=== PATIENT | female | born 1935 | race Caucasian/White ===

== ENCOUNTER 2017-10-16 17:16 | Emergency (ER) | payer OTHER ==
[2017-10-16 17:29] VITALS: BMI 28.3
[2017-10-16 17:33] LABS: BASOPHILS # (AUTO) 0.2 X10^3/uL (0.0-0.1); BASOPHILS % (AUTO) 2.6 % (0.2-1.0); EOSINOPHILS # (AUTO) 0.4 x10^3/uL (0.0-0.2); EOSINOPHILS % (AUTO) 4.4 % (0.9-2.9); HEMATOCRIT 36.1 % (36.0-47.0); HEMOGLOBIN 12.2 g/dL (12.0-16.0); LYMPHOCYTES % (AUTO) 22.7 % (21.0-51.0); MEAN CORPUSCULAR HEMOGLOBIN 30.6 pg (27.0-34.0); MEAN CORPUSCULAR HGB CONC 33.9 g/dL (33.0-35.0); MEAN CORPUSCULAR VOLUME 90.3 fL (80.0-100.0); MEAN PLATELET VOLUME 8.7 fL (7.4-11.0); MONOCYTES # (AUTO) 0.9 x10^3/uL (0.3-0.8); NEUTROPHILS # (AUTO) 5.4 x10^3/uL (2.2-4.8); NEUTROPHILS % (AUTO) 60.3 % (42.0-75.0); PLATELET COUNT 256 X10^3/uL (150.0-450.0); RED CELL DISTRIBUTION WIDTH 14.8 % (11.6-16.5); WHITE BLOOD COUNT 8.9 X10^3/uL (3.6-10.0)
[2017-10-16 17:47] LABS: ALANINE AMINOTRANSFERASE 19 Units/L (12-78); ALBUMIN 3.4 g/dL (3.4-5.0); ALKALINE PHOSPHATASE 75 Units/L (46-116); ASPARTATE AMINO TRANSFERASE 19 Units/L (15-37); BLOOD UREA NITROGEN 13 mg/dL (7-18); CALCIUM 8.7 mg/dL (8.5-10.1); CARBON DIOXIDE 28.4 mmol/L (21-32); CHLORIDE 103 mmol/L (98-107); COR NA(FOR HYPERGLY) 140 mmol/L (136-145); CREATININE 1.21 mg/dL (0.55-1.02); SODIUM 139 mmol/L (136-145); TOTAL PROTEIN 7.3 g/dL (6.4-8.2); eGFR BLACK RACES 55 (>60); eGFR NON BLACK RACES 45 (>60)
[2017-10-16 17:51] LABS: BLOOD ALCOHOL < 3 mg/dL (0-19.9)
[2017-10-16 18:05] LABS: SALICYLATE < 2.8 mg/dL (2.8-20)
[2017-10-16 18:34] LABS: BILIRUBIN,URINE NEGATIVE (NEGATIVE); BLOOD/HEMOGLOBIN,URINE 1+ (NEGATIVE); GLUCOSE, URINE NEGATIVE (NEGATIVE); KETONES,URINE NEGATIVE (NEGATIVE); LEUKOCYTE ESTERASE ,URINE 2+ (NEGATIVE); NITRITES,URINE NEGATIVE (NEGATIVE); PROTEIN,URINE NEGATIVE (NEGATIVE); UROBILINOGEN,URINE NORMAL (NORMAL)
[2017-10-16 18:50] LABS: APPEARANCE,URINE CLEAR (CLEAR); COLOR,URINE YELLOW (YELLOW); RBC,URINE 0-1 /HPF (NEGATIVE)
[2017-10-16 18:51] LABS: BACTERIA,URINE NEGATIVE /HPF (NEGATIVE); SQUAMOUS EPITHELIAL CELL,UR FEW /HPF (NEGATIVE)
--- NOTE | 2017-10-16 19:09 | DR.PSYCH ---
HPI - Time Seen Time seen: 17:25 - PCP Primary Care Physician: DR. ROMO - HPI Comment HPI Comment: PATIENT SAID SHE TOLD THE STAFF AT THE [facility] SHE WILL [facility] THAN BE AT THE [facility] AFTER HER RELATIVES SAID THEY DID NOT WANT TO TAKE HER HOME. SHE DENIES ANY ACUTE PAIN. - Complaint Chief Complaint Doctors Comments: HERE FROM [place] WITH BELOW COMPLAINT. Chief Complaint:: PT TO ER WITH C/O FROM [facility] STAFF THAT PT THREATENED TO KILL HER SELF AND THAT SHE COULD GET A GUN AND SHE COULD GET SOME TWEEZERS AND POKE HER SELF AND THAT LASHELL WRAY WAS CALLED AND FOR PT TO BE EVALUATED , Self Treatment fo Chief Complaint: PT DOES NOT KNOW WHY SHE IS HERE .. - Reviewed Nurses Notes Review: Yes - Source History Provided: Patient, Longterm - Mode of Arrival Mode of Arrival: Wheelchair - Timing Onset of Chief Complaint: 10/16/17 Came on: Suddenly - Duration Duration: Constant Duration: Hours - Context Ideation: Suicidal (POSSIBLE SUICIDE THREAT.) Plan: None Stressors: Family, Relationships History of: None - Quality Quality: None Hallucinations: None - Severity Severity: Able to care for self - Associated signs and symptoms Intoxification: None PMH - PMH Past Medical History: Yes Past Medical History: Arthritis, CHF, Dyslipidemia, GERD, Hypertension Past Surgical History: Yes Surgical History: Appendectomy, Hysterectomy, Tonsillectomy, Other - Family History History of Family Medical Conditions: Yes Family Medical History: Diabetes Mellitus, Heart Failure, Hypertension - Social History Does patient currently use any type of tobacco product: No Have you used tobacco products in the last 12 months: No Type of Tobacco Use: None Does any household member use tobacco: No Alcohol Use: None Do you use any recreational Drugs:: No Lives Where: Longterm - infectious screening In the last 2 months have you had wt loss of >10#?: NO Have you had fever, night sweats or hemotysis?: No Have you traveled outside the country in the last 6 months?: No Isolation: Standard ROS - Review of Systems Constitutional: No Symptoms Reported Eyes: No Symptoms Reported ENTM: No Symptoms Reported Respiratoy: No Symptoms Reported Cardiovascular: No Symptoms Reported Gastrointestinal/Abdominal: No Symptoms Reported Genitourinary: No Symptoms Reported Neurological: No Symptoms Reported Musculoskeletal: No Symptoms Reported Integumentary: No Symptoms Reported Hematologic/Lymphatic: No Symptoms Reported Endocrine: No Symptoms Reported Psychiatric: Other (POSSIBLE SUICIDE THREAT.) All Other Systems: Reviewed and Negative PE - Vitals Vitals: Temperature 98.7 F Pulse Rate [Left] 75 Pulse Rate 89 Respiratory Rate 16 Blood Pressure [Left Arm] 139/67 Blood Pressure [Right Arm] 149/91 Blood Pressure 113/63 O2 Sat by Pulse Oximetry 97 - General Limitations: No Limitations General Appearance: Alert - Head Head Exam: Normal Inspection Head Exam Physical: Other (NONE) - Eyes Eye exam: Normal Appearance Pupils: Regular, Round: Bilateral, Reactive: Bilateral Sclera/Conjunctival: Normal Inspection: Bilateral - ENT ENT Exam: Normal Exam - Neck Neck Exam: Normal Inspection - Chest Chest Inspection: Symmetric Chest Wall Rise - Respiratory Respiratory Exam: Normal Lung Sounds Bilat Respiratory Exam: Bilateral Clear to Auscultation - Cardiovascular Cardiovascular Exam: Irregular Rhythm - Abdominal Exam Abdominal Exam: Normal Bowel Sounds, Soft. negative: Tenderness - Extremities Extremities Exam: Normal Inspection - Back Back Exam: Normal Inspection - Neurologic Neurological Exam: Alert, Oriented X3 Speech: Fluid Speech Cranial Nerve Exam: EOM Function (II, III, IV, ): Normal, Facial Sensation (V) : Normal, Facial Palsy (VII): Normal, Gag reflex (XI): Normal, Spinal Accessory Function (XI): Normal, Tongue Deviation: Normal Cerebellar Function: Normal Gait Motor Strength - LUE: 5/5 Motor Strength - RUE: 5/5 Motor Strength - LLE: 5/5 Motor Strength - RLE: 5/5 Upper Motor Neuron Exam: Babinski Sign: Normal DTR: achilles tendon (L): 4+, achilles tendon (R): 4+, brachioradialis (L): 4+, brachioradialis (R): 4+, Patellar (L): 4+, patellar (R): 4+ - Psychiatric Psychiatric Exam: Normal Affect, Normal Mood - Skin Skin Exam: Normal Color MDD - Differential Diagnosis Differential diagnosis: Suicidal (PROBABLE SUICIDE THREAT.) Course - Treatment Treatment: SEE ORDERS. PATIENT IS MEDICALLY CLEAR. - Education/Counseling Education/Counseling: Patient Educated On: Diagnosis ROR - Labs Reviewed Laboratory Results Reviewed?: Yes Result Diagrams: 10/16/17 17:25 10/16/17 17:25 Laboratory: WBC 8.9 X10^3/uL (3.6-10.0) 10/16/17 17:25 RBC 4.00 X10^6/uL (3.5-5.4) 10/16/17 17:25 Hgb 12.2 g/dL (12.0-16.0) 10/16/17 17:25 Hct 36.1 % (36.0-47.0) 10/16/17 17:25 MCV 90.3 fL (80.0-100.0) 10/16/17 17:25 MCH 30.6 pg (27.0-34.0) 10/16/17 17:25 MCHC 33.9 g/dL (33.0-35.0) 10/16/17 17:25 RDW 14.8 % (11.6-16.5) 10/16/17 17:25 Plt Count 256 X10^3/uL (150.0-450.0) 10/16/17 17:25 MPV 8.7 fL (7.4-11.0) 10/16/17 17:25 Neut % 60.3 % (42.0-75.0) 10/16/17 17:25 Lymph % 22.7 % (21.0-51.0) 10/16/17 17:25 [place] % 10.0 % (0.0-13.0) 10/16/17 17:25 Eos % 4.4 % (0.9-2.9) H 10/16/17 17:25 Baso % 2.6 % (0.2-1.0) H 10/16/17 17:25 Neut # 5.4 x10^3/uL (2.2-4.8) H 10/16/17 17:25 Lymph # 2.0 X10^3/uL (1.3-2.9) 10/16/17 17:25 [place] # 0.9 x10^3/uL (0.3-0.8) H 10/16/17 17:25 Eos # 0.4 x10^3/uL (0.0-0.2) H 10/16/17 17:25 Baso # 0.2 X10^3/uL (0.0-0.1) H 10/16/17 17:25 Absolute Nucleated RBC 0.1 /100WBC 10/16/17 17:25 Sodium 139 mmol/L (136-145) 10/16/17 17:25 Corrected Sodium 140 mmol/L (136-145) 10/16/17 17:25 Potassium 3.7 mmol/L (3.5-5.1) 10/16/17 17:25 Chloride 103 mmol/L (98-107) 10/16/17 17:25 Carbon Dioxide 28.4 mmol/L (21-32) 10/16/17 17:25 BUN 13 mg/dL (7-18) 10/16/17 17:25 Creatinine 1.21 mg/dL (0.55-1.02) H 10/16/17 17:25 Est GFR (MDRD) Af Amer 55 (>60) L 10/16/17 17:25 Est GFR (MDRD) Non-Af 45 (>60) L 10/16/17 17:25 Glucose 148 mg/dL (65-99) H 10/16/17 17:25 Calcium 8.7 mg/dL (8.5-10.1) 10/16/17 17:25 Corrected Calcium TNP 10/16/17 17:25 Total Bilirubin 0.50 mg/dL (0.2-1.0) 10/16/17 17:25 AST 19 Units/L (15-37) 10/16/17 17:25 ALT 19 Units/L (12-78) 10/16/17 17:25 Alkaline Phosphatase 75 Units/L (46-116) 10/16/17 17:25 Total Protein 7.3 g/dL (6.4-8.2) 10/16/17 17:25 Albumin 3.4 g/dL (3.4-5.0) 10/16/17 17:25 Globulin 3.9 g/dL (2.5-4.5) 10/16/17 17:25 Albumin/Globulin Ratio 0.9 Ratio (1.1-2.1) L 10/16/17 17:25 Specimen Type Clean catch urine 10/16/17 18:22 Urine Color Yellow (YELLOW) 10/16/17 18:22 Urine Appearance Clear (CLEAR) 10/16/17 18:22 Urine pH 5.0 (5.0 - 8.0) 10/16/17 18:22 Ur Specific [place] 1.010 (1.000-1.030) 10/16/17 18:22 Urine Protein Negative (NEGATIVE) 10/16/17 18:22 Urine Glucose (UA) Negative (NEGATIVE) 10/16/17 18:22 Urine Ketones Negative (NEGATIVE) 10/16/17 18:22 Urine Occult Blood 1+ (NEGATIVE) 10/16/17 18:22 Urine Nitrite Negative (NEGATIVE) 10/16/17 18:22 Urine Bilirubin Negative (NEGATIVE) 10/16/17 18:22 Urine Urobilinogen Normal (NORMAL) 10/16/17 18:22 Ur Leukocyte Esterase 2+ (NEGATIVE) 10/16/17 18:22 Urine RBC 0-1 /HPF (NEGATIVE) 10/16/17 18:22 Urine WBC 5-10 /HPF (NEGATIVE) 10/16/17 18:22 Ur Squamous Epith Cells Few /HPF (NEGATIVE) 10/16/17 18:22 Urine Bacteria Negative /HPF (NEGATIVE) 10/16/17 18:22 Ur Culture Indicated? Yes/culture set up 10/16/17 18:22 Salicylates < 2.8 mg/dL (2.8-20) L 10/16/17 17:25 Urine Opiates Screen Negative (NEG=<300) 10/16/17 18:22 Urine Methadone Screen Negative (NEG=<300) 10/16/17 18: Acetaminophen 0.0 ug/mL (10-30) L 10/16/17 17:25 Ur Barbiturates Screen Negative (NEG=<200) 10/16/17 18:22 Ur Phencyclidine Scrn Negative (NEG=<25) 10/16/17 18:22 Ur Amphetamines Screen Negative (NEG=<1000) 10/16/17 18:22 U Benzodiazepines Scrn Positive (NEG=<200) A 10/16/17 18:22 Urine Cocaine Screen Negative (NEG=<300) 10/16/17 18:22 U Marijuana (THC) Screen Negative (NEG=<50) 10/16/17 18:22 Ethyl Alcohol mg/dL < 3 mg/dL (0-19.9) 10/16/17 17:25 - Diagnosis Discharge Problem: Suspected suicide UTI (urinary tract infection) Qualifiers: Urinary tract infection type: site unspecified Hematuria presence: without hematuria Qualified Code(s): N39.0 - Urinary tract infection, site not specified - Discharge Plan Disposition: 65 XFER TO PSYCH HOSP/UNIT Condition: Stable Prescriptions: Ciprofloxacin HCl [CIPRO 500 MG TAB *] 500 mg PO Q12H #20 tab - Follow ups/Referrals Follow ups/Referrals: Bart Romo [Primary Care Provider] - 3 days - Instructions Instructions: Urinary Tract Infection, Adult
[2017-10-16] MEDS ORDERED: ZOCOR TAB 20 MG PO ONE (21:07)
[2017-10-16] MEDS ORDERED: ARICEPT TAB 5 MG PO ONE (21:09)
[2017-10-16 22:07] VITALS: BP 139/67
== END 2017-10-16 22:20 ==
LOC: ER 17:32
DX: N39.0 Urinary tract infection, site not specified (principal)
CPT/HCPCS: 36415; 80053; 80307; 80320; 81001; 85025; 87086; 93005; 93010; 99282; 99285; G0434; G6038; G6039; G6040

== ENCOUNTER 2017-11-12 17:31 | Emergency (ER) | payer OTHER ==
--- NOTE | 2017-11-12 18:06 | DR.GENAD ---
HPI - PCP Primary Care Physician: Jai - Complaint/Symptoms Chief Complaint Doctors Comments: Patient sent from nursing complaint of diarrhea stools. Denies fever vomiting or diarrhea. PMH - PMH Past Medical History: Arthritis, CHF, Dyslipidemia, GERD, Hypertension Past Surgical History: Yes Surgical History: Appendectomy, Hysterectomy, Tonsillectomy, Other - Family History Family Medical History: Diabetes Mellitus, Heart Failure, Hypertension - Social History Do you use any recreational Drugs:: No ROS - Review of Systems Eyes: No Symptoms Reported ENTM: No Symptoms Reported Respiratoy: No Symptoms Reported Cardiovascular: No Symptoms Reported Gastrointestinal/Abdominal: Diarrhea Genitourinary: No Symptoms Reported Neurological: No Symptoms Reported Musculoskeletal: No Symptoms Reported Integumentary: No Symptoms Reported Hematologic/Lymphatic: No Symptoms Reported Endocrine: No Symptoms Reported Psychiatric: No Symptoms Reported All Other Systems: Reviewed and Negative PE - Vital Signs Vitals: Temperature 98.7 F Pulse Rate 72 Respiratory Rate 20 Blood Pressure [Left Arm] 139/67 Blood Pressure [Right Arm] 149/91 Blood Pressure 121/59 O2 Sat by Pulse Oximetry 99 - General General Appearance: Alert, In No Apparent Distress - Head Head Exam: Normal Inspection, Atraumatic - Eyes Eye exam: Normal Appearance, PERRL, EOMI - ENT ENT Exam: Normal Exam External Ear Exam: Normal External Inspection TM/Canal Exam: Bilateral Normal Nose Exam: Normal Nose Exam Mouth Exam: Normal Inspection Throat Exam: Normal Inspection - Neck Neck Exam: Normal Inspection, Full ROM - Chest Chest Inspection: Normal Inspection - Respiratory Respiratory Exam: Normal Lung Sounds Bilat Respiratory Exam: Bilateral Clear to Auscultation - Cardiovascular Cardiovascular Exam: Regular Rate, Normal Rhythm - Abdominal Exam Abdominal Exam: Normal Inspection Abdominal Tenderness: negative: RUQ, RLQ, LUQ, LLQ, Epigastrium, Suprapubic, Diffuse, Mild, Moderate, Severe, Other - Extremities Extremities Exam: Normal Inspection, Full ROM - Back Back Exam: Normal Inspection, Full ROM - Neurologic Neurological Exam: Alert, Oriented X3, CN II-XII Intact - Psychiatric Psychiatric Exam: Normal Affect - Skin Skin Exam: Warm, Dry, Intact, Normal Color Course - Reevaluation 1st: Improved ROR - Labs Reviewed Result Diagrams: 11/12/17 18:48 Laboratory: Sodium 138 mmol/L (136-145) 11/12/17 18:48 Corrected Sodium TNP 11/12/17 18:48 Potassium 4.2 mmol/L (3.5-5.1) 11/12/17 18:48 Chloride 104 mmol/L (98-107) 11/12/17 18:48 Carbon Dioxide 25.5 mmol/L (21-32) 11/12/17 18:48 BUN 15 mg/dL (7-18) 11/12/17 18:48 Creatinine 0.98 mg/dL (0.55-1.02) 11/12/17 18:48 Est GFR (MDRD) Af Amer > 60 (>60) 11/12/17 18:48 Est GFR (MDRD) Non-Af 58 (>60) L 11/12/17 18:48 Glucose 109 mg/dL (65-99) H 11/12/17 18:48 Calcium 8.5 mg/dL (8.5-10.1) 11/12/17 18:48 - Diagnosis Discharge Problem: Diarrhea Qualifiers: Diarrhea type: unspecified type Qualified Code(s): R19.7 - Diarrhea, unspecified - Discharge Plan Condition: Stable - Follow ups/Referrals Follow ups/Referrals: Bart Romo [Primary Care Provider] - 3 days - Instructions
[2017-11-12 18:26] VITALS: BMI 19.3
[2017-11-12] MEDS ORDERED: NS 1000 ML 1,000 ML ONE (18:28)
[2017-11-12] MEDS ORDERED: NS 1000 ML 1,000 ML IV SCH (19:00)
[2017-11-12 19:03] LABS: BLOOD UREA NITROGEN 15 mg/dL (7-18); CALCIUM 8.5 mg/dL (8.5-10.1); CARBON DIOXIDE 25.5 mmol/L (21-32); CHLORIDE 104 mmol/L (98-107); CREATININE 0.98 mg/dL (0.55-1.02); SODIUM 138 mmol/L (136-145); eGFR BLACK RACES > 60 (>60); eGFR NON BLACK RACES 58 (>60)
[2017-11-12 19:48] VITALS: BP 111/53
== END 2017-11-12 19:50 | disposition home or self-care (01) ==
LOC: ER 18:06
DX: R19.7 Diarrhea, unspecified (principal); Z79.899 Other long term (current) drug therapy
CPT/HCPCS: 36415; 80048; 85025; 96365; 96367; 99282; 99283; A4222

== ENCOUNTER → 2017-11-12 | Outpatient (CLI) | payer OTHER ==
[2017-10-16 22:07] VITALS: BP 139/67
[2017-11-12 14:34] LABS: BASOPHILS # (AUTO) 0.1 X10^3/uL (0.0-0.1); BASOPHILS % (AUTO) 0.9 % (0.2-1.0); EOSINOPHILS # (AUTO) 0.3 x10^3/uL (0.0-0.2); EOSINOPHILS % (AUTO) 2.4 % (0.9-2.9); HEMATOCRIT 30.9 % (36.0-47.0); HEMOGLOBIN 10.7 g/dL (12.0-16.0); LYMPHOCYTES # (AUTO) 1.7 X10^3/uL (1.3-2.9); LYMPHOCYTES % (AUTO) 16.2 % (21.0-51.0); MEAN CORPUSCULAR HEMOGLOBIN 30.5 pg (27.0-34.0); MEAN CORPUSCULAR HGB CONC 34.6 g/dL (33.0-35.0); MEAN CORPUSCULAR VOLUME 88.1 fL (80.0-100.0); MEAN PLATELET VOLUME 9.1 fL (7.4-11.0); MONOCYTES # (AUTO) 1.4 x10^3/uL (0.3-0.8); NEUTROPHILS # (AUTO) 7.1 x10^3/uL (2.2-4.8); NEUTROPHILS % (AUTO) 67.5 % (42.0-75.0); PLATELET COUNT 315 X10^3/uL (150.0-450.0); RED BLOOD COUNT 3.51 X10^6/uL (3.5-5.4); RED CELL DISTRIBUTION WIDTH 13.6 % (11.6-16.5); WHITE BLOOD COUNT 10.5 X10^3/uL (3.6-10.0)
[2017-11-12 14:40] LABS: BLOOD UREA NITROGEN 14 mg/dL (7-18); CALCIUM 8.3 mg/dL (8.5-10.1); CARBON DIOXIDE 25.6 mmol/L (21-32); CHLORIDE 106 mmol/L (98-107); CREATININE 1.11 mg/dL (0.55-1.02); SODIUM 140 mmol/L (136-145); eGFR BLACK RACES > 60 (>60); eGFR NON BLACK RACES 50 (>60)
== END ==
LOC: LAB 13:35
PROVIDERS: ATTEND Internal Medicine
DX: Z79.899 Other long term (current) drug therapy (principal)
CPT/HCPCS: 36415; 80048; 85025

== ENCOUNTER 2017-12-20 13:05 | Inpatient (IN) | payer OTHER ==
[2017-12-20] MEDS ORDERED: ZOFRAN INJ 4 MG VIAL IVP PRN ×2 (13:32→13:49)
[2017-12-20 14:18] LABS: BASOPHILS # (AUTO) 0.1 X10^3/uL (0.0-0.1); BASOPHILS % (AUTO) 0.9 % (0.2-1.0); EOSINOPHILS # (AUTO) 0.1 x10^3/uL (0.0-0.2); EOSINOPHILS % (AUTO) 2.1 % (0.9-2.9); HEMATOCRIT 39.7 % (36.0-47.0); HEMOGLOBIN 13.8 g/dL (12.0-16.0); LYMPHOCYTES % (AUTO) 28.5 % (21.0-51.0); MEAN CORPUSCULAR HEMOGLOBIN 32.1 pg (27.0-34.0); MEAN CORPUSCULAR HGB CONC 34.7 g/dL (33.0-35.0); MEAN CORPUSCULAR VOLUME 92.6 fL (80.0-100.0); MEAN PLATELET VOLUME 8.6 fL (7.4-11.0); MONOCYTES # (AUTO) 0.5 x10^3/uL (0.3-0.8); MONOCYTES % (AUTO) 6.7 % (0.0-13.0); NEUTROPHILS # (AUTO) 4.3 x10^3/uL (2.2-4.8); NEUTROPHILS % (AUTO) 61.8 % (42.0-75.0); PLATELET COUNT 162 X10^3/uL (150.0-450.0); RED BLOOD COUNT 4.29 X10^6/uL (3.5-5.4); RED CELL DISTRIBUTION WIDTH 14.6 % (11.6-16.5); WHITE BLOOD COUNT 6.9 X10^3/uL (3.6-10.0)
[2017-12-20 14:22] VITALS: BMI 17.6
[2017-12-20 14:28] LABS: ALANINE AMINOTRANSFERASE 16 Units/L (12-78); ALBUMIN 3.9 g/dL (3.4-5.0); ALKALINE PHOSPHATASE 118 Units/L (46-116); ASPARTATE AMINO TRANSFERASE 15 Units/L (15-37); BLOOD UREA NITROGEN 12 mg/dL (7-18); CALCIUM 8.8 mg/dL (8.5-10.1); CARBON DIOXIDE 28.5 mmol/L (21-32); CHLORIDE 105 mmol/L (98-107); COR NA(FOR HYPERGLY) 144 mmol/L (136-145); CREATININE 0.92 mg/dL (0.55-1.02); SODIUM 143 mmol/L (136-145); TOTAL PROTEIN 7.8 g/dL (6.4-8.2); eGFR BLACK RACES > 60 (>60); eGFR NON BLACK RACES > 60 (>60)
[2017-12-20] MEDS: FLAGYL IV PREMIX 500 MG BAG 500 MG/100 ML BAG IV SCH ×4 (14:30→21:43)
[2017-12-20] MEDS: NS 1000 ML 1,000 ML IV SCH (14:57)
[2017-12-20] MEDS: VANCOMYCIN HCL PO SCH ×2 (15:21→21:33)
[2017-12-20 15:59] LABS: STOOL FOR WBC POSITIVE (NEGATIVE)
[2017-12-20 16:30] LABS: CRYPTOSPORIDIUM PARVUM ANTIGEN NEGATIVE (NEGATIVE); GIARDIA LAMBLIA ANTIGEN NEGATIVE (NEGATIVE)
[2017-12-20] MEDS ORDERED: POTASSIUM CHL 60 MEQ/NS 0.45% 500 ML IV PRN (17:14)
[2017-12-20] MEDS ORDERED: K-RIDER 10 MEQ/NS 100 ML 10 MEQ/100 ML BAG IV PRN (17:14)
[2017-12-20] MEDS ORDERED: POTASSIUM CHL 40 MEQ/NS 0.45% 500 ML IV PRN (17:14)
[2017-12-20] MEDS ORDERED: POTASSIUM CHLORIDE LIQ 20 MEQ UDC PO PRN (17:14)
[2017-12-20] MEDS: K-LYTE EFFERVESCENT PO PRN (17:26)
--- NOTE | 2017-12-20 20:20 | DR.H&P ---
H&P - History & Physical for Day of: H&P Date: 12/20/17 - Chief Complaint Chief Complaint: INTRACTABLE DIARRHEA - Allergies Allergies/Adverse Reactions: Allergies Allergy/AdvReac Type Severity Reaction Status Date / Time shellfish derived Allergy Verified 12/20/17 17:25 Sulfa (Sulfonamide Allergy Verified 12/20/17 17:25 Antibiotics) [SULFA] - History of Present Illness History of Present Illness: IS A 82 YEAR OLD PATIENT OF OURS. SHE RESIDES AT [facility] / [facility]. SHE WAS A DIRECT ADMISSION FOR INTRACTABLE DIARRHEA AND ABDOMINAL PAIN. PATIENTS FAMILY REPORTS THAT HER DIARRHEA HAS BEEN ONGOING FOR THE PAST TWO MONTHS. OUTPATIENT LABS ON 12/10/2017 REVEALED THAT PATIENT WAS POSITIVE FOR C.DIFF TOXIN. SHE WAS STARTED ON FLAGYL 500MG PO AT THAT TIME. AFTER NO IMPROVEMENT IN SYMPTOMS, PATIENT WAS STARTED ON VANCOMYCIN 250MG PO QID. TODAY, PRISON REPORTED INCREASED DIARRHEA AND ABDOMINAL PAIN. PATIENT WAS ADMITTED FOR INTRACTABLE C.DIFF INFECTION. MEDICAL HISTORY INCLUDES: CVA, TIA, PACEMAKER, HYPERTENSION, CHRONIC BRONCHITIS, GERD, DIVERTICULOSIS, ARTHRITIS, GOUT, CHRONIC BACK PAIN, HX SKIN CANCER, ANXIETY, DEPRESSION, APPENDECTOMY, HYSTERECTOMY, AND TONSILLECTOMY. ON ADMISSION, VITALS WERE 98.0-79-20-95%-124/60. WE OBTAINED LABS AND STOOL STUDIES. ABNORMAL LAB VALUES INCLUDE THE FOLLOWING: POTASSIUM 3.2, GLUCOSE 125, ALK PHOS 118. STOOLS WERE POSITIVE FOR WHITE BLOOD CELLS, OCCULT BLOOD, AND C.DIFF TOXIN B. A STOOL CULTURE WAS SET UP. PATIENT WAS STARTED ON NORMAL SALINE AT 80ML/HR, FLAGYL 500MG IV Q6H, AND VANCOMYCIN 250MG PO Q6H. WE STARTED THE POTASSIUM PROTOCOL. WE PLAN TO FOLLOW UP WITH AM LABS AND CONTINUE TO MONTIOR PATIENT. - Past Medical History Past Medical History: Arthritis, CHF, Dyslipidemia, GERD, Hypertension Additional Medical History: Cataracts, Diverticulosis, Muscle Weakness, Back Pain, Skin cancer on nose - Past Surgical History Surgical History: Appendectomy, Hysterectomy, Tonsillectomy Additional Surgical History: Pacemaker placement, Breast reduction - Family History Family Medical History: Diabetes Mellitus, ID, Heart Failure, Hypertension - Social History Alcohol Use: None Drug Use: None - Medications Home Medications: Amino Acids/Protein Hydrolys [Pro-Stat [facility] Liquid Packet] 1 pkg PO BID 12/20/17 [History Confirmed 12/20/17] Cyanocobalamin (Vitamin B-12) [Cyanocobalamin Injection] 0.5 ml IM WEEKLY [History Confirmed 12/20/17] Donepezil HCl [Aricept] 1 tab PO HS 12/20/17 [History Confirmed 12/20/17] Fluoxetine HCl [FLUOXETINE 20 MG *] 1 cap PO HS 12/20/17 [History Confirmed 01/03] L.acidoph,Paracasei, B.lactis [Probiotic] 2 cap PO DAILY 12/20/17 [History Confirmed 12/20/17] Memantine HCl [Namenda] 1 tab PO HS 12/20/17 [History Confirmed 12/20/17] Olanzapine [ZYPREXA 5 MG *] 1 tab PO HS 12/20/17 [History Confirmed 12/20/17] - Review of Systems Constitutional: See HPI, Weakness, Malaise. denies: Fever Eyes: No Symptoms Reported ENT: No Symptoms Reported Respiratory: No Symptoms Reported Cardiovascular: No Symptoms Reported Gastrointestinal: See HPI, Nausea, Abdominal Pain, Diarrhea, Melena. denies: Vomiting, Constipation Genitourinary: No Symptoms Reported Musculoskeletal: No Symptoms Reported Skin: No Symptoms Reported Neurological: Weakness - Physical Exam Vital Signs: Temperature 98.2 F Pulse Rate [Right Brachial] 84 Respiratory Rate 18 Blood Pressure [Left Arm] 111/53 Blood Pressure [Right Arm] 143/64 Blood Pressure 111/53 O2 Sat by Pulse Oximetry 97 Oriented: Normal Eyes: Normal Ear: Normal Nose: Normal Throat: Normal Respiratory: Clear Throughout Cardiovascular: Normal. negative: S3, S4, Murmur, Edema : Normal Auscultation: Bowel Sounds: Increased Palpation: Normal Tenderness: Diffuse, Moderate. negative: Rebound, Guarding, Rigidity Skin: Decreased [place] Musculoskeletal: Normal Psychiatric: Normal Mood Description: Calm Affect: Normal Speech Pattern: Clear - Assessment/Plan (1) C. difficile diarrhea Status: Acute Plan: VANCOMYCIN 250MG PO Q6H, FLAGYL 500MG IV Q6H, NORMAL SALINE AT 80ML/HR, CONTINUE TO MONITOR
[2017-12-20] MEDS ORDERED: LEVSIN/MAALOX/LIDOC VISC PO PRN (20:22)
[2017-12-20] MEDS ORDERED: [UNRECOGNIZED DRUG - OTHER] PO SCH (21:00)
[2017-12-20] MEDS ORDERED: PROTEIN HYDROLYS PO SCH (21:00)
[2017-12-20] MEDS ORDERED: AMINO ACIDS PO SCH (21:00)
[2017-12-20] MEDS ORDERED: PATIENT'S HOME MEDICATION (Memantine Hcl [Namenda] 1 TAB) PO SCH (21:00)
[2017-12-20] MEDS: ZOCOR TAB 20 MG PO SCH (21:34)
[2017-12-20] MEDS: ZyPREXA TAB 5 MG PO SCH (21:34)
[2017-12-20] MEDS: HEMOCYTE-PLUS PO SCH (21:34)
[2017-12-20] MEDS: NAMENDA TAB 10 MG PO SCH (21:34)
[2017-12-20] MEDS: PROzac PO SCH (21:34)
[2017-12-20] MEDS: PROTONIX INJ 40 MG VIAL IVP SCH (21:38)
[2017-12-20] MEDS: PEPCID 20 MG IV PREMIX* 20 MG/50 ML BAG IV SCH (21:41)
[2017-12-20] MEDS: ARICEPT TAB 10 MG PO SCH (21:43)
[2017-12-21] MEDS: VANCOMYCIN HCL PO SCH ×4 (03:21→20:31)
[2017-12-21] MEDS: NS 1000 ML 1,000 ML IV SCH ×2 (03:21→16:08)
[2017-12-21] MEDS: FLAGYL IV PREMIX 500 MG BAG 500 MG/100 ML BAG IV SCH ×4 (03:21→20:32)
[2017-12-21 05:35] LABS: BASOPHILS # (AUTO) 0.1 X10^3/uL (0.0-0.1); EOSINOPHILS # (AUTO) 0.3 x10^3/uL (0.0-0.2); EOSINOPHILS % (AUTO) 3.4 % (0.9-2.9); HEMATOCRIT 27.9 % (36.0-47.0); HEMOGLOBIN 9.5 g/dL (12.0-16.0); LYMPHOCYTES # (AUTO) 1.9 X10^3/uL (1.3-2.9); LYMPHOCYTES % (AUTO) 21.5 % (21.0-51.0); MEAN CORPUSCULAR HEMOGLOBIN 29.9 pg (27.0-34.0); MEAN CORPUSCULAR HGB CONC 34.1 g/dL (33.0-35.0); MEAN CORPUSCULAR VOLUME 87.7 fL (80.0-100.0); MEAN PLATELET VOLUME 9.3 fL (7.4-11.0); MONOCYTES % (AUTO) 11.9 % (0.0-13.0); NEUTROPHILS # (AUTO) 5.4 x10^3/uL (2.2-4.8); NEUTROPHILS % (AUTO) 62.2 % (42.0-75.0); PLATELET COUNT 259 X10^3/uL (150.0-450.0); RED BLOOD COUNT 3.18 X10^6/uL (3.5-5.4); RED CELL DISTRIBUTION WIDTH 14.4 % (11.6-16.5); WHITE BLOOD COUNT 8.7 X10^3/uL (3.6-10.0)
[2017-12-21 05:42] LABS: ALANINE AMINOTRANSFERASE 18 Units/L (12-78); ALBUMIN 2.2 g/dL (3.4-5.0); ALKALINE PHOSPHATASE 64 Units/L (46-116); ASPARTATE AMINO TRANSFERASE 15 Units/L (15-37); BLOOD UREA NITROGEN 10 mg/dL (7-18); CALCIUM 8.3 mg/dL (8.5-10.1); CARBON DIOXIDE 23.7 mmol/L (21-32); CHLORIDE 108 mmol/L (98-107); COR CA(FOR HYPOALB) 9.7 mg/dL (8.5-10.1); SODIUM 142 mmol/L (136-145); TOTAL PROTEIN 5.7 g/dL (6.4-8.2); eGFR BLACK RACES > 60 (>60); eGFR NON BLACK RACES > 60 (>60)
[2017-12-21] MEDS: PROTONIX INJ 40 MG VIAL IVP SCH ×2 (08:01→20:32)
[2017-12-21] MEDS: K-DUR TAB 20 MEQ PO SCH (08:01)
[2017-12-21] MEDS: SYNTHROID 88 mcg TAB PO SCH (08:02)
[2017-12-21] MEDS: HEMOCYTE-PLUS PO SCH ×2 (08:02→20:30)
[2017-12-21] MEDS: LASIX PO SCH (08:05)
[2017-12-21] MEDS: CLARITIN PO SCH (08:05)
[2017-12-21] MEDS: VSL#3 PO SCH (08:19)
[2017-12-21] MEDS ORDERED: PATIENT'S HOME MEDICATION (Potassium Chloride [Potassium Chloride] 20 MEQ) PO SCH (09:00)
[2017-12-21] MEDS ORDERED: ACIDOPH PARACASEI B LACTIS PO SCH (09:00)
[2017-12-21] MEDS: PEPCID 20 MG IV PREMIX* 20 MG/50 ML BAG IV SCH ×2 (09:15→20:33)
[2017-12-21] MEDS: LANOXIN PO SCH (09:19)
[2017-12-21] MEDS ORDERED: BUTT CREAM (COMPOUND) TOP PRN (15:35)
[2017-12-21] MEDS: NAMENDA TAB 10 MG PO SCH (20:30)
[2017-12-21] MEDS: ARICEPT TAB 10 MG PO SCH (20:31)
[2017-12-21] MEDS: ZyPREXA TAB 5 MG PO SCH (20:31)
[2017-12-21] MEDS: PROzac PO SCH (20:32)
[2017-12-21] MEDS: ZOCOR TAB 20 MG PO SCH (20:32)
[2017-12-22] MEDS: FLAGYL IV PREMIX 500 MG BAG 500 MG/100 ML BAG IV SCH ×4 (02:28→20:31)
[2017-12-22] MEDS: VANCOMYCIN HCL PO SCH ×4 (02:28→20:32)
[2017-12-22] MEDS: NS 1000 ML 1,000 ML IV SCH ×2 (05:16→18:03)
[2017-12-22 05:22] LABS: BASOPHILS # (AUTO) 0.1 X10^3/uL (0.0-0.1); BASOPHILS % (AUTO) 1.3 % (0.2-1.0); EOSINOPHILS # (AUTO) 0.3 x10^3/uL (0.0-0.2); EOSINOPHILS % (AUTO) 4.2 % (0.9-2.9); HEMATOCRIT 28.6 % (36.0-47.0); HEMOGLOBIN 9.8 g/dL (12.0-16.0); LYMPHOCYTES # (AUTO) 1.5 X10^3/uL (1.3-2.9); MEAN CORPUSCULAR HGB CONC 34.4 g/dL (33.0-35.0); MEAN CORPUSCULAR VOLUME 87.4 fL (80.0-100.0); MEAN PLATELET VOLUME 9.3 fL (7.4-11.0); MONOCYTES % (AUTO) 13.6 % (0.0-13.0); NEUTROPHILS # (AUTO) 4.4 x10^3/uL (2.2-4.8); NEUTROPHILS % (AUTO) 59.9 % (42.0-75.0); PLATELET COUNT 261 X10^3/uL (150.0-450.0); RED BLOOD COUNT 3.27 X10^6/uL (3.5-5.4); RED CELL DISTRIBUTION WIDTH 14.7 % (11.6-16.5); WHITE BLOOD COUNT 7.4 X10^3/uL (3.6-10.0)
[2017-12-22 05:37] LABS: ALANINE AMINOTRANSFERASE 17 Units/L (12-78); ALBUMIN 2.3 g/dL (3.4-5.0); ALKALINE PHOSPHATASE 66 Units/L (46-116); ASPARTATE AMINO TRANSFERASE 17 Units/L (15-37); BLOOD UREA NITROGEN 8 mg/dL (7-18); CALCIUM 8.2 mg/dL (8.5-10.1); CARBON DIOXIDE 23.6 mmol/L (21-32); CHLORIDE 108 mmol/L (98-107); COR CA(FOR HYPOALB) 9.6 mg/dL (8.5-10.1); CREATININE 0.94 mg/dL (0.55-1.02); SODIUM 142 mmol/L (136-145); TOTAL PROTEIN 5.8 g/dL (6.4-8.2); eGFR BLACK RACES > 60 (>60); eGFR NON BLACK RACES > 60 (>60)
[2017-12-22] MEDS: PROTONIX INJ 40 MG VIAL IVP SCH ×2 (08:16→20:32)
[2017-12-22] MEDS: LANOXIN PO SCH (08:16)
[2017-12-22] MEDS: LASIX PO SCH (08:17)
[2017-12-22] MEDS: VSL#3 PO SCH (08:17)
[2017-12-22] MEDS: HEMOCYTE-PLUS PO SCH ×2 (08:17→20:33)
[2017-12-22] MEDS: SYNTHROID 88 mcg TAB PO SCH (08:18)
[2017-12-22] MEDS: K-DUR TAB 20 MEQ PO SCH (08:18)
[2017-12-22] MEDS: PEPCID 20 MG IV PREMIX* 20 MG/50 ML BAG IV SCH ×2 (08:18→20:31)
[2017-12-22] MEDS: CLARITIN PO SCH (08:18)
[2017-12-22 10:16] LABS: BILIRUBIN,URINE NEGATIVE (NEGATIVE); BLOOD/HEMOGLOBIN,URINE NEGATIVE (NEGATIVE); GLUCOSE, URINE NEGATIVE (NEGATIVE); KETONES,URINE 2+ (NEGATIVE); LEUKOCYTE ESTERASE ,URINE 1+ (NEGATIVE); NITRITES,URINE NEGATIVE (NEGATIVE); PROTEIN,URINE NEGATIVE (NEGATIVE); UROBILINOGEN,URINE NORMAL (NORMAL)
[2017-12-22 10:39] LABS: APPEARANCE,URINE CLEAR (CLEAR); COLOR,URINE YELLOW (YELLOW)
[2017-12-22 11:20] LABS: RBC,URINE NONE SEEN /HPF (NONE SEEN)
[2017-12-22 11:21] LABS: AMORPHOUS SEDIMENT,UR TRACE /HPF (NEGATIVE); BACTERIA,URINE NEGATIVE /HPF (NEGATIVE); SQUAMOUS EPITHELIAL CELL,UR RARE /HPF (NEGATIVE)
[2017-12-22] MEDS: ARICEPT TAB 10 MG PO SCH (20:32)
[2017-12-22] MEDS: PROzac PO SCH (20:32)
[2017-12-22] MEDS: ZyPREXA TAB 5 MG PO SCH (20:32)
[2017-12-22] MEDS: ZOCOR TAB 20 MG PO SCH (20:33)
[2017-12-22] MEDS: NAMENDA TAB 10 MG PO SCH (20:33)
[2017-12-23] MEDS: FLAGYL IV PREMIX 500 MG BAG 500 MG/100 ML BAG IV SCH ×2 (02:02→08:21)
[2017-12-23] MEDS: NS 1000 ML 1,000 ML IV SCH ×5 (02:02→21:11)
[2017-12-23] MEDS: VANCOMYCIN HCL PO SCH ×4 (02:02→21:13)
[2017-12-23 05:43] LABS: BASOPHILS # (AUTO) 0.1 X10^3/uL (0.0-0.1); BASOPHILS % (AUTO) 0.9 % (0.2-1.0); EOSINOPHILS % (AUTO) 0.6 % (0.9-2.9); HEMOGLOBIN 9.4 g/dL (12.0-16.0); LYMPHOCYTES # (AUTO) 1.1 X10^3/uL (1.3-2.9); LYMPHOCYTES % (AUTO) 13.5 % (21.0-51.0); MEAN CORPUSCULAR HEMOGLOBIN 30.2 pg (27.0-34.0); MEAN CORPUSCULAR HGB CONC 34.7 g/dL (33.0-35.0); MEAN PLATELET VOLUME 9.4 fL (7.4-11.0); MONOCYTES # (AUTO) 1.5 x10^3/uL (0.3-0.8); MONOCYTES % (AUTO) 17.6 % (0.0-13.0); NEUTROPHILS # (AUTO) 5.7 x10^3/uL (2.2-4.8); NEUTROPHILS % (AUTO) 67.4 % (42.0-75.0); PLATELET COUNT 239 X10^3/uL (150.0-450.0); RED CELL DISTRIBUTION WIDTH 14.3 % (11.6-16.5); WHITE BLOOD COUNT 8.4 X10^3/uL (3.6-10.0)
[2017-12-23 05:53] LABS: ALANINE AMINOTRANSFERASE 13 Units/L (12-78); ALBUMIN 2.1 g/dL (3.4-5.0); ALKALINE PHOSPHATASE 56 Units/L (46-116); ASPARTATE AMINO TRANSFERASE 13 Units/L (15-37); BLOOD UREA NITROGEN 8 mg/dL (7-18); CALCIUM 7.8 mg/dL (8.5-10.1); CARBON DIOXIDE 23.8 mmol/L (21-32); CHLORIDE 109 mmol/L (98-107); COR CA(FOR HYPOALB) 9.3 mg/dL (8.5-10.1); CREATININE 0.87 mg/dL (0.55-1.02); SODIUM 141 mmol/L (136-145); TOTAL PROTEIN 5.6 g/dL (6.4-8.2); eGFR BLACK RACES > 60 (>60); eGFR NON BLACK RACES > 60 (>60)
[2017-12-23] MEDS: PEPCID 20 MG IV PREMIX* 20 MG/50 ML BAG IV SCH (08:19)
[2017-12-23] MEDS: PROTONIX INJ 40 MG VIAL IVP SCH ×2 (08:20→21:12)
[2017-12-23] MEDS: CLARITIN PO SCH (08:21)
[2017-12-23] MEDS: LANOXIN PO SCH (08:21)
[2017-12-23] MEDS: LASIX PO SCH (08:21)
[2017-12-23] MEDS: SYNTHROID 88 mcg TAB PO SCH (08:23)
[2017-12-23] MEDS: K-DUR TAB 20 MEQ PO SCH (08:23)
[2017-12-23] MEDS: HEMOCYTE-PLUS PO SCH ×2 (08:23→21:12)
[2017-12-23] MEDS: VSL#3 PO SCH (08:23)
[2017-12-23] MEDS: ARICEPT TAB 10 MG PO SCH (21:12)
[2017-12-23] MEDS: PROzac PO SCH (21:12)
[2017-12-23] MEDS: NAMENDA TAB 10 MG PO SCH (21:12)
[2017-12-23] MEDS: ZyPREXA TAB 5 MG PO SCH (21:13)
[2017-12-23] MEDS: REMERON PO SCH (21:13)
[2017-12-23] MEDS: ZOCOR TAB 20 MG PO SCH (21:13)
[2017-12-24] MEDS: VANCOMYCIN HCL PO SCH ×4 (04:00→21:18)
[2017-12-24] MEDS: NS 1000 ML 1,000 ML IV SCH ×3 (06:01→18:48)
[2017-12-24 06:09] LABS: BASOPHILS # (AUTO) 0.1 X10^3/uL (0.0-0.1); EOSINOPHILS # (AUTO) 0.3 x10^3/uL (0.0-0.2); EOSINOPHILS % (AUTO) 4.1 % (0.9-2.9); HEMATOCRIT 28.7 % (36.0-47.0); HEMOGLOBIN 9.8 g/dL (12.0-16.0); LYMPHOCYTES # (AUTO) 1.7 X10^3/uL (1.3-2.9); LYMPHOCYTES % (AUTO) 22.7 % (21.0-51.0); MEAN CORPUSCULAR HEMOGLOBIN 30.1 pg (27.0-34.0); MEAN CORPUSCULAR HGB CONC 34.3 g/dL (33.0-35.0); MEAN CORPUSCULAR VOLUME 87.7 fL (80.0-100.0); MEAN PLATELET VOLUME 9.6 fL (7.4-11.0); MONOCYTES # (AUTO) 1.2 x10^3/uL (0.3-0.8); MONOCYTES % (AUTO) 15.7 % (0.0-13.0); NEUTROPHILS # (AUTO) 4.2 x10^3/uL (2.2-4.8); NEUTROPHILS % (AUTO) 56.5 % (42.0-75.0); PLATELET COUNT 257 X10^3/uL (150.0-450.0); RED BLOOD COUNT 3.27 X10^6/uL (3.5-5.4); RED CELL DISTRIBUTION WIDTH 15.1 % (11.6-16.5); WHITE BLOOD COUNT 7.5 X10^3/uL (3.6-10.0)
[2017-12-24 06:15] LABS: ALANINE AMINOTRANSFERASE 13 Units/L (12-78); ALBUMIN 2.1 g/dL (3.4-5.0); ALKALINE PHOSPHATASE 51 Units/L (46-116); ASPARTATE AMINO TRANSFERASE 12 Units/L (15-37); BLOOD UREA NITROGEN 7 mg/dL (7-18); CALCIUM 8.2 mg/dL (8.5-10.1); CARBON DIOXIDE 23.2 mmol/L (21-32); CHLORIDE 112 mmol/L (98-107); COR CA(FOR HYPOALB) 9.7 mg/dL (8.5-10.1); CREATININE 0.87 mg/dL (0.55-1.02); DIGOXIN 0.79 ng/mL (0.9-2); SODIUM 145 mmol/L (136-145); TOTAL PROTEIN 5.6 g/dL (6.4-8.2); eGFR BLACK RACES > 60 (>60); eGFR NON BLACK RACES > 60 (>60)
[2017-12-24] MEDS: VSL#3 PO SCH (09:28)
[2017-12-24] MEDS: LANOXIN PO SCH (09:28)
[2017-12-24] MEDS: CLARITIN PO SCH (09:28)
[2017-12-24] MEDS: PROTONIX INJ 40 MG VIAL IVP SCH ×2 (09:28→21:18)
[2017-12-24] MEDS: K-DUR TAB 20 MEQ PO SCH (09:28)
[2017-12-24] MEDS: LASIX PO SCH (09:28)
[2017-12-24] MEDS: SYNTHROID 88 mcg TAB PO SCH (09:29)
[2017-12-24] MEDS: HEMOCYTE-PLUS PO SCH ×2 (09:29→21:20)
[2017-12-24] MEDS: ZyPREXA TAB 5 MG PO SCH (21:18)
[2017-12-24] MEDS: NAMENDA TAB 10 MG PO SCH (21:19)
[2017-12-24] MEDS: REMERON PO SCH (21:19)
[2017-12-24] MEDS: ZOCOR TAB 20 MG PO SCH (21:19)
[2017-12-24] MEDS: PROzac PO SCH (21:19)
[2017-12-24] MEDS: ARICEPT TAB 10 MG PO SCH (21:20)
[2017-12-25] MEDS: VANCOMYCIN HCL PO SCH ×4 (05:56→21:14)
[2017-12-25] MEDS: NS 1000 ML 1,000 ML IV SCH ×4 (05:56→21:18)
[2017-12-25 06:23] LABS: BASOPHILS # (AUTO) 0.1 X10^3/uL (0.0-0.1); BASOPHILS % (AUTO) 1.3 % (0.2-1.0); EOSINOPHILS # (AUTO) 0.5 x10^3/uL (0.0-0.2); EOSINOPHILS % (AUTO) 6.7 % (0.9-2.9); HEMATOCRIT 26.5 % (36.0-47.0); HEMOGLOBIN 9.2 g/dL (12.0-16.0); LYMPHOCYTES # (AUTO) 1.7 X10^3/uL (1.3-2.9); LYMPHOCYTES % (AUTO) 23.5 % (21.0-51.0); MEAN CORPUSCULAR HEMOGLOBIN 30.3 pg (27.0-34.0); MEAN CORPUSCULAR HGB CONC 34.9 g/dL (33.0-35.0); MONOCYTES # (AUTO) 1.1 x10^3/uL (0.3-0.8); MONOCYTES % (AUTO) 15.2 % (0.0-13.0); NEUTROPHILS # (AUTO) 3.8 x10^3/uL (2.2-4.8); NEUTROPHILS % (AUTO) 53.3 % (42.0-75.0); PLATELET COUNT 273 X10^3/uL (150.0-450.0); RED BLOOD COUNT 3.05 X10^6/uL (3.5-5.4); WHITE BLOOD COUNT 7.2 X10^3/uL (3.6-10.0)
[2017-12-25 06:28] LABS: ALANINE AMINOTRANSFERASE 12 Units/L (12-78); ALBUMIN 2.1 g/dL (3.4-5.0); ALKALINE PHOSPHATASE 50 Units/L (46-116); ASPARTATE AMINO TRANSFERASE 12 Units/L (15-37); BLOOD UREA NITROGEN 5 mg/dL (7-18); CARBON DIOXIDE 24.2 mmol/L (21-32); CHLORIDE 112 mmol/L (98-107); COR CA(FOR HYPOALB) 9.5 mg/dL (8.5-10.1); SODIUM 146 mmol/L (136-145); TOTAL PROTEIN 5.4 g/dL (6.4-8.2); eGFR BLACK RACES > 60 (>60); eGFR NON BLACK RACES > 60 (>60)
[2017-12-25] MEDS: LANOXIN PO SCH (09:14)
[2017-12-25] MEDS: CLARITIN PO SCH (09:14)
[2017-12-25] MEDS: HEMOCYTE-PLUS PO SCH ×2 (09:14→21:12)
[2017-12-25] MEDS: K-DUR TAB 20 MEQ PO SCH (09:14)
[2017-12-25] MEDS: PROTONIX INJ 40 MG VIAL IVP SCH ×2 (09:15→21:15)
[2017-12-25] MEDS: LASIX PO SCH (09:15)
[2017-12-25] MEDS: SYNTHROID 88 mcg TAB PO SCH (09:15)
[2017-12-25] MEDS: VSL#3 PO SCH (09:16)
--- NOTE | 2017-12-25 10:43 | PCM.PROG ---
Progress Note - Progress Note for Day of Date: 12/21/17 - Subjective Subjective: IS BEING TREATED FOR REFRACTORY C.DIFF. TODAY, SHE IS ALERT AND ORIENTED, SITTING UP IN BED ON MORNING ROUNDS. SHE REPORTS COMPLAINTS OF MILD, DIFFUSE ABDOMINAL PAIN AND DARK, LOOSE STOOLS. ON EXAMINATION, HEART IS REGULAR IN RATE AND RHYTHM. BILATERAL LUNGS ARE CLEAR THROUGHOUT. ABDOMEN IS FLAT, SOFT, AND NOTED WITH MILD TENDERNESS TO PALPATION. HYPERACTIVE BOWEL SOUNDS ARE NOTED IN ALL QUADRANTS. HER VITALS THIS MORNING WERE 98.0-75-17-96%- 114/57. LABS WERE OBTAINED. ABNORMAL LAB VALUES INCLUDE THE FOLLOWING: RBC 3.18 , HGB 9.5, HCT 27.9, INR 2.71, CHLORIE 108, CALCIUM 8.3, TOTAL PROTEIN 5.7, ALBUMIN 2.2. STOOL STUDIES WERE OBTAINED ON ADMISSION AND WERE POSITIVE FOR WHITE CELLS, OCCULT BLOOD, AND C.DIFF TOXIN B GENE. STOOL CULTURE IS PENDING. SHE IS CURRENTLY RECEIVING FLAGYL IV AND VANCOMYCIN 250MG PO Q6H. WE WILL CONTINUE WITH CURRENT PLAN FO CARE TODAY. OTHERWISE, WE WILL FOLLOW UP WITH AM LABS AND CONTINUE TO MONITOR PATIENT. - Past Medical Family Social History Past Med/Fam/Surg Hx: No changes since H&P Allergies: Allergies shellfish derived Allergy (Verified 12/20/17 17:25) Sulfa (Sulfonamide Antibiotics) [SULFA] Allergy (Verified 12/20/17 17:25) - Review of Systems ROS: No change since H&P - Vital Signs and I&O's Vital Signs: Temperature 97.9 F Pulse Rate [Right Brachial] 71 Pulse Rate 71 Respiratory Rate 20 Blood Pressure [Left Arm] 101/56 Blood Pressure [Right Arm] 138/65 Blood Pressure 111/53 O2 Sat by Pulse Oximetry 96 Intake and Output: Intake & Output 12/22/17 12/23/17 12/24/17 12/25/17 11:59 11:59 11:59 11:59 Intake Total 2860 2780 1110 1625 Output Total 450 0 800 1000 Balance 2410 2780 310 625 - Physical Exam Oriented: Normal Eyes: Normal Ear: Normal Nose: Normal Throat: Normal Respiratory: Normal Cardiovascular: Normal. negative: S3, S4, Murmur, Edema : Normal Auscultation: Bowel Sounds: Increased Tenderness: Diffuse, Mild. negative: Rebound, Guarding, Rigidity Skin: Decreased Turgur Musculoskeletal: Normal Psychiatric: Normal Mood Description: Calm Affect: Normal Speech Pattern: Clear, Appropriate - Laboratory and Diagnostics Result Diagrams: 12/25/17 05:10 12/25/17 05:10 Labs: 12/20/17 15:14 Stool Stool Culture - Final 12/20/17 15:14 Stool - Final Laboratory WBC 7.2 X10^3/uL (3.6-10.0) 12/25/17 05:10 RBC 3.05 X10^6/uL (3.5-5.4) L 12/25/17 05:10 Hgb 9.2 g/dL (12.0-16.0) L 12/25/17 05:10 Hct 26.5 % (36.0-47.0) L 12/25/17 05:10 MCV 87.0 fL (80.0-100.0) 12/25/17 05:10 MCH 30.3 pg (27.0-34.0) 12/25/17 05:10 MCHC 34.9 g/dL (33.0-35.0) 12/25/17 05:10 RDW 15.0 % (11.6-16.5) 12/25/17 05:10 Plt Count 273 X10^3/uL (150.0-450.0) 12/25/17 05:10 MPV 10.0 fL (7.4-11.0) 12/25/17 05:10 Neut % (Auto) 53.3 % (42.0-75.0) 12/25/17 05:10 Lymph % (Auto) 23.5 % (21.0-51.0) 12/25/17 05:10 [place] % (Auto) 15.2 % (0.0-13.0) H 12/25/17 05:10 Eos % (Auto) 6.7 % (0.9-2.9) H 12/25/17 05:10 Baso % (Auto) 1.3 % (0.2-1.0) H 12/25/17 05:10 Neut # (Auto) 3.8 x10^3/uL (2.2-4.8) 12/25/17 05:10 Lymph # (Auto) 1.7 X10^3/uL (1.3-2.9) 12/25/17 05:10 [place] # (Auto) 1.1 x10^3/uL (0.3-0.8) H 12/25/17 05:10 Eos # (Auto) 0.5 x10^3/uL (0.0-0.2) H 12/25/17 05:10 Baso # (Auto) 0.1 X10^3/uL (0.0-0.1) 12/25/17 05:10 Absolute Nucleated RBC 0.0 /100WBC 12/25/17 05:10 INR Target Range - 12/25/17 05:10 INR 1.46 (0.8-1.3) H 12/25/17 05:10 Sodium 146 mmol/L (136-145) H 12/25/17 05:10 Corrected Sodium TNP 12/25/17 05:10 Potassium 3.2 mmol/L (3.5-5.1) L 12/25/17 05:10 Chloride 112 mmol/L (98-107) H 12/25/17 05:10 Carbon Dioxide 24.2 mmol/L (21-32) 12/25/17 05:10 BUN 5 mg/dL (7-18) L 12/25/17 05:10 Creatinine 0.80 mg/dL (0.55-1.02) 12/25/17 05:10 Est GFR (MDRD) Af Amer > 60 (>60) 12/25/17 05:10 Est GFR (MDRD) Non-Af > 60 (>60) 12/25/17 05:10 Glucose 84 mg/dL (65-99) 12/25/17 05:10 POC Glucose (mg/dL) 140 mg/dL (65-99) H 12/22/17 19:51 Calcium 8.0 mg/dL (8.5-10.1) L 12/25/17 05:10 Corrected Calcium 9.5 mg/dL (8.5-10.1) 12/25/17 05:10 Magnesium 1.8 mg/dL (1.7-2.9) 12/20/17 17:25 Total Bilirubin 0.50 mg/dL (0.2-1.0) 12/25/17 05:10 AST 12 Units/L (15-37) L 12/25/17 05:10 ALT 12 Units/L (12-78) 12/25/17 05:10 Alkaline Phosphatase 50 Units/L (46-116) 12/25/17 05:10 Total Protein 5.4 g/dL (6.4-8.2) L 12/25/17 05:10 Albumin 2.1 g/dL (3.4-5.0) L 12/25/17 05:10 Globulin 3.3 g/dL (2.5-4.5) 12/25/17 05:10 Albumin/Globulin Ratio 0.6 Ratio (1.1-2.1) L 12/25/17 05:10 Specimen Type Clean catch urine 12/22/17 09:56 Urine Color Yellow (YELLOW) 12/22/17 09:56 Urine Appearance Clear (CLEAR) 12/22/17 09:56 Urine pH 5.0 (5.0 - 8.0) 12/22/17 09:56 Ur Specific [place] 1.015 (1.000-1.030) 12/22/17 09:56 Urine Protein Negative (NEGATIVE) 12/22/17 09:56 Urine Glucose (UA) Negative (NEGATIVE) 12/22/17 09:56 Urine Ketones 2+ (NEGATIVE) 12/22/17 09:56 Urine Occult Blood Negative (NEGATIVE) 12/22/17 09:56 Urine Nitrite Negative (NEGATIVE) 12/22/17 09:56 Urine Bilirubin Negative (NEGATIVE) 12/22/17 09:56 Urine Urobilinogen Normal (NORMAL) 12/22/17 09:56 Ur Leukocyte Esterase 1+ (NEGATIVE) 12/22/17 09:56 Urine RBC None seen /HPF (NONE SEEN) 12/22/17 09:56 Urine WBC 0-2 /HPF (NONE SEEN) 12/22/17 09:56 Ur Squamous Epith Cells Rare /HPF (NEGATIVE) 12/22/17 09:56 Amorphous Sediment Trace /HPF (NEGATIVE) 12/22/17 09:56 Urine Bacteria Negative /HPF (NEGATIVE) 12/22/17 09:56 Ur Culture Indicated? No/not indicated 12/22/17 09:56 Stool Description 1g,green,unformed 12/23/17 17:47 Stl Occult Blood (IFOB) Negative (NEGATIVE) 12/23/17 17:47 Stool for White Cells Positive (NEGATIVE) A 12/20/17 15:14 Stl C. diff Tox B Gene Positive (NEGATIVE) A 12/20/17 15:14 Stl C. diff [id number] Negative (NEGATIVE) 12/20/17 15:14 Digoxin 0.79 ng/mL (0.9-2) L 12/24/17 05:00 Cryptosporid parvum Ag Negative (NEGATIVE) 12/20/17 15:14 E. histolytica Antigen Negative (NEGATIVE) 12/20/17 15:14 Giardia lamblia Ag Negative (NEGATIVE) 12/20/17 15:14 - Plan (1) C. difficile diarrhea Status: Acute Plan: VANCOMYCIN 250MG PO Q6H, FLAGYL 500MG IV Q6H, NORMAL SALINE AT 80ML/HR, CONTINUE TO MONITOR
[2017-12-25] MEDS: K-LYTE EFFERVESCENT PO PRN (11:47)
--- NOTE | 2017-12-25 17:25 | DR.CONSULT ---
Consult - Consultation for Day of: Date: 12/25/17 - Chief Complaint Chief Complaint: Patient referred for C-Diff. Patient with complaints of diarrhea and abdominal soreness. - Allergies Allergies/Adverse Reactions: Allergies Allergy/AdvReac Type Severity Reaction Status Date / Time shellfish derived Allergy Verified 12/20/17 17:25 Sulfa (Sulfonamide Allergy Verified 12/20/17 17:25 Antibiotics) [SULFA] - History of Present Illness History of Present Illness: Patient is a 82yo female who was referred for C- Diff. Patient with complaints of diarrhea that has improved and abdominal soreness. Patient has only been having 2 BMs a day since in hospital. Patient denies dysphagia, dyspepsia, nausea, vomiting, constipation, melena and heamtochezia. Patient stool positive C-Diff, WBC and blood. hgb is stable at 9.2. Patient states that she had a colon a long time ago. Will check records at office. - Past Medical History Past Medical History: Arthritis, CHF, Dyslipidemia, GERD, Hypertension Additional Medical History: Cataracts, Diverticulosis, Muscle Weakness, Back Pain, Skin cancer on nose - Past Surgical History Surgical History: Appendectomy, Hysterectomy, Tonsillectomy Additional Surgical History: Pacemaker placement, Breast reduction - Family History Family Medical History: Diabetes Mellitus, [place], Heart Failure, Hypertension - Social History Alcohol Use: None Drug Use: None - Medications Home Medications: Amino Acids/Protein Hydrolys [Pro-Stat Awc Liquid Packet] 1 pkg PO BID 12/20/17 [History Confirmed 12/20/17] Cyanocobalamin (Vitamin B-12) [Cyanocobalamin Injection] 0.5 ml IM WEEKLY [History Confirmed 12/20/17] Donepezil HCl [Aricept] 1 tab PO HS 12/20/17 [History Confirmed 12/20/17] Fluoxetine HCl [FLUOXETINE 20 MG *] 1 cap PO HS 12/20/17 [History Confirmed 01/03] L.acidoph,Paracasei, B.lactis [Probiotic] 2 cap PO DAILY 12/20/17 [History Confirmed 12/20/17] Memantine HCl [Namenda] 1 tab PO HS 12/20/17 [History Confirmed 12/20/17] Olanzapine [ZYPREXA 5 MG *] 1 tab PO HS 12/20/17 [History Confirmed 12/20/17] - Review of Systems Constitutional: No Symptoms Reported Eyes: No Symptoms Reported ENT: No Symptoms Reported Respiratory: No Symptoms Reported Cardiovascular: No Symptoms Reported Gastrointestinal: See HPI, Abdominal Pain (soreness), Diarrhea Genitourinary: No Symptoms Reported Musculoskeletal: No Symptoms Reported Skin: No Symptoms Reported Neurological: No Symptoms Reported - Physical Exam Vital Signs: Temperature 98.2 F Pulse Rate [Right Brachial] 85 Pulse Rate 71 Respiratory Rate 20 Blood Pressure [Left Arm] 101/56 Blood Pressure [Right Arm] 130/60 Blood Pressure 111/53 O2 Sat by Pulse Oximetry 97 Oriented: Normal Eyes: Normal Ear: Normal Nose: Normal Throat: Normal Respiratory: Clear Throughout Cardiovascular: Normal : Normal Auscultation: Bowel Sounds: Normal Palpation: Normal, Other (no distention). negative: Spleen Enlarged, Liver Enlarged, Mass Pulsatile Tenderness: Diffuse Skin: Normal Musculoskeletal: Normal Psychiatric: Normal Mood Description: Calm Affect: Normal Speech Pattern: Clear - Plan Plan: Assessment. 1. 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 Plan. 1. Continue vancomycin and flagyl for 2 weeks, if C- diff reoccurs will explore other options such as Difficid or FMT. Plan reviewed with Dr. Dang
[2017-12-25] MEDS: PROzac PO SCH (21:12)
[2017-12-25] MEDS: NAMENDA TAB 10 MG PO SCH (21:13)
[2017-12-25] MEDS: ZOCOR TAB 20 MG PO SCH (21:13)
[2017-12-25] MEDS: REMERON PO SCH (21:13)
[2017-12-25] MEDS: ZyPREXA TAB 5 MG PO SCH (21:13)
[2017-12-25] MEDS: ARICEPT TAB 10 MG PO SCH (21:16)
[2017-12-26] MEDS: NS 1000 ML 1,000 ML IV SCH ×2 (00:14→13:27)
[2017-12-26] MEDS: VANCOMYCIN HCL PO SCH ×2 (05:20→09:23)
[2017-12-26 06:05] LABS: BASOPHILS # (AUTO) 0.1 X10^3/uL (0.0-0.1); BASOPHILS % (AUTO) 1.1 % (0.2-1.0); EOSINOPHILS # (AUTO) 0.5 x10^3/uL (0.0-0.2); EOSINOPHILS % (AUTO) 7.6 % (0.9-2.9); HEMOGLOBIN 9.8 g/dL (12.0-16.0); LYMPHOCYTES # (AUTO) 2.2 X10^3/uL (1.3-2.9); LYMPHOCYTES % (AUTO) 32.2 % (21.0-51.0); MEAN CORPUSCULAR HEMOGLOBIN 30.3 pg (27.0-34.0); MEAN CORPUSCULAR VOLUME 86.6 fL (80.0-100.0); MEAN PLATELET VOLUME 9.9 fL (7.4-11.0); MONOCYTES # (AUTO) 1.1 x10^3/uL (0.3-0.8); MONOCYTES % (AUTO) 15.9 % (0.0-13.0); NEUTROPHILS # (AUTO) 2.9 x10^3/uL (2.2-4.8); NEUTROPHILS % (AUTO) 43.2 % (42.0-75.0); PLATELET COUNT 273 X10^3/uL (150.0-450.0); RED BLOOD COUNT 3.23 X10^6/uL (3.5-5.4); RED CELL DISTRIBUTION WIDTH 15.1 % (11.6-16.5); WHITE BLOOD COUNT 6.8 X10^3/uL (3.6-10.0)
[2017-12-26 06:28] LABS: ALANINE AMINOTRANSFERASE 12 Units/L (12-78); ALBUMIN 2.2 g/dL (3.4-5.0); ALKALINE PHOSPHATASE 50 Units/L (46-116); ASPARTATE AMINO TRANSFERASE 10 Units/L (15-37); BLOOD UREA NITROGEN 4 mg/dL (7-18); CARBON DIOXIDE 23.9 mmol/L (21-32); CHLORIDE 112 mmol/L (98-107); COR CA(FOR HYPOALB) 9.4 mg/dL (8.5-10.1); CREATININE 0.76 mg/dL (0.55-1.02); DIGOXIN 0.59 ng/mL (0.9-2); SODIUM 146 mmol/L (136-145); TOTAL PROTEIN 5.6 g/dL (6.4-8.2); eGFR BLACK RACES > 60 (>60); eGFR NON BLACK RACES > 60 (>60)
[2017-12-26] MEDS: MAGNESIUM SULFATE 1 GM/100 mL PREMIX 1 GM/100 ML BAG IV PRN ×2 (09:22→10:33)
[2017-12-26] MEDS: SYNTHROID 88 mcg TAB PO SCH (09:23)
[2017-12-26] MEDS: LANOXIN PO SCH (09:23)
[2017-12-26] MEDS: PROTONIX INJ 40 MG VIAL IVP SCH (09:23)
[2017-12-26] MEDS: VSL#3 PO SCH (09:23)
[2017-12-26] MEDS: K-DUR TAB 20 MEQ PO SCH (09:24)
[2017-12-26] MEDS: CLARITIN PO SCH (09:24)
[2017-12-26] MEDS: LASIX PO SCH (09:24)
[2017-12-26] MEDS: HEMOCYTE-PLUS PO SCH (09:24)
[2017-12-26 12:19] VITALS: BP 123/60
== END 2017-12-26 13:40 | DRG 372 ==
LOC: UNDOADMOB 13:05 → MED/SURG 13:05 → OBSVTOIN 12-22 13:50
PROVIDERS: ADMIT Internal Medicine; ATTEND Internal Medicine
DX: A04.71 Enterocolitis due to Clostridium difficile, recurrent (principal); R10.84 Generalized abdominal pain; Z95.0 Presence of cardiac pacemaker; K92.1 Melena; I10 Essential (primary) hypertension; K21.9 Gastro-esophageal reflux disease without esophagitis; K52.89 Other specified noninfective gastroenteritis and colitis; M54.5 Low back pain; F41.8 Other specified anxiety disorders; F32.89 Other specified depressive episodes; R26.89 Other abnormalities of gait and mobility
CPT/HCPCS: 36415; 80053; 80162; 81001; 82274; 83630; 83735; 84132; 85025; 85610; 87045; 87328; 87329; 87336; 87427; 87449; 87493; A4216; A4222; C9113; G8987; G8988; G8990; G8991; S0028; S0030; G0378; J2405

== ENCOUNTER → 2018-11-22 14:00 | Observation (INO) ==
[2018-11-20 20:58] VITALS: BMI 20.1
[2018-11-20] MEDS: NS 1/2 1000 ML IV 1,000 ML IV SCH (20:58)
[2018-11-20] MEDS: ROBITUSSIN DM PO SCH (20:58)
[2018-11-20 21:05] LABS: BASOPHILS # (AUTO) 0.1 X10^3/uL (0.0-0.1); BASOPHILS % (AUTO) 0.9 % (0.2-1.0); EOSINOPHILS # (AUTO) 0.3 x10^3/uL (0.0-0.2); EOSINOPHILS % (AUTO) 3.2 % (0.9-2.9); HEMATOCRIT 36.1 % (36.0-47.0); HEMOGLOBIN 12.5 g/dL (12.0-16.0); LYMPHOCYTES % (AUTO) 19.7 % (21.0-51.0); MEAN CORPUSCULAR HEMOGLOBIN 32.2 pg (27.0-34.0); MEAN CORPUSCULAR HGB CONC 34.5 g/dL (33.0-35.0); MEAN CORPUSCULAR VOLUME 93.4 fL (80.0-100.0); MEAN PLATELET VOLUME 9.7 fL (7.4-11.0); MONOCYTES % (AUTO) 9.8 % (0.0-13.0); NEUTROPHILS # (AUTO) 6.8 x10^3/uL (2.2-4.8); NEUTROPHILS % (AUTO) 66.4 % (42.0-75.0); PLATELET COUNT 227 X10^3/uL (150.0-450.0); RED BLOOD COUNT 3.86 X10^6/uL (3.5-5.4); RED CELL DISTRIBUTION WIDTH 13.7 % (11.6-16.5); WHITE BLOOD COUNT 10.3 X10^3/uL (3.6-10.0)
[2018-11-20 21:14] LABS: ALBUMIN 3.1 g/dL (3.4-5.0); CALCIUM 9.1 mg/dL (8.5-10.1); CARBON DIOXIDE 27.7 mmol/L (21-32); COR CA(FOR HYPOALB) 9.8 mg/dL (8.5-10.1); CREATININE 1.26 mg/dL (0.55-1.02); TOTAL PROTEIN 6.6 g/dL (6.4-8.2)
[2018-11-20] MEDS: RESTORIL CAP 15 MG PO PRN (22:20)
[2018-11-21] MEDS: DUONEB 0.5 MG/3 MG NEB SCH ×6 (01:18→20:32)
[2018-11-21 04:55] LABS: APPEARANCE,URINE CLEAR (CLEAR); COLOR,URINE DARK YELLOW (YELLOW); PH,URINE 6.5 (5.0 - 8.0)
[2018-11-21 04:56] LABS: BACTERIA,URINE NEGATIVE /HPF (NEGATIVE); BILIRUBIN,URINE NEGATIVE (NEGATIVE); BLOOD/HEMOGLOBIN,URINE 1+ (NEGATIVE); GLUCOSE, URINE NEGATIVE (NEGATIVE); KETONES,URINE NEGATIVE (NEGATIVE); LEUKOCYTE ESTERASE ,URINE 1+ (NEGATIVE); NITRITES,URINE NEGATIVE (NEGATIVE); PROTEIN,URINE 2+ (NEGATIVE); RBC,URINE 0-2 /HPF (NONE SEEN); SQUAMOUS EPITHELIAL CELL,UR RARE /HPF (NEGATIVE); UROBILINOGEN,URINE NORMAL (NORMAL)
[2018-11-21 05:32] LABS: BASOPHILS % (AUTO) 0.5 % (0.2-1.0); EOSINOPHILS # (AUTO) 0.1 x10^3/uL (0.0-0.2); EOSINOPHILS % (AUTO) 1.6 % (0.9-2.9); HEMATOCRIT 33.3 % (36.0-47.0); HEMOGLOBIN 11.6 g/dL (12.0-16.0); LYMPHOCYTES # (AUTO) 1.4 X10^3/uL (1.3-2.9); MEAN CORPUSCULAR HEMOGLOBIN 32.6 pg (27.0-34.0); MEAN CORPUSCULAR HGB CONC 34.7 g/dL (33.0-35.0); MEAN PLATELET VOLUME 9.7 fL (7.4-11.0); MONOCYTES # (AUTO) 0.9 x10^3/uL (0.3-0.8); MONOCYTES % (AUTO) 11.2 % (0.0-13.0); NEUTROPHILS # (AUTO) 5.6 x10^3/uL (2.2-4.8); NEUTROPHILS % (AUTO) 69.7 % (42.0-75.0); PLATELET COUNT 204 X10^3/uL (150.0-450.0); RED BLOOD COUNT 3.54 X10^6/uL (3.5-5.4); RED CELL DISTRIBUTION WIDTH 13.9 % (11.6-16.5); WHITE BLOOD COUNT 8.1 X10^3/uL (3.6-10.0)
[2018-11-21 05:47] LABS: ALANINE AMINOTRANSFERASE 23 Units/L (12-78); ALBUMIN 2.7 g/dL (3.4-5.0); ALKALINE PHOSPHATASE 52 Units/L (46-116); ASPARTATE AMINO TRANSFERASE 18 Units/L (15-37); BLOOD UREA NITROGEN 15 mg/dL (7-18); CALCIUM 8.7 mg/dL (8.5-10.1); CARBON DIOXIDE 27.8 mmol/L (21-32); CHLORIDE 101 mmol/L (98-107); COR CA(FOR HYPOALB) 9.7 mg/dL (8.5-10.1); CREATININE 1.14 mg/dL (0.55-1.02); SODIUM 136 mmol/L (136-145); TOTAL PROTEIN 5.9 g/dL (6.4-8.2); eGFR NON BLACK RACES 49 (>60)
--- NOTE | 2018-11-21 06:48 | RAD ---
HISTORY: Pneumonia Study: Chest PA and lateral Comparison: 07/09/2018 Findings: There is a pacemaker present on the left. The heart is within normal limits in size. The nereyda are normal. The lungs are mildly hyperinflated but free of acute infiltrates. No pleural effusions are identified. The bony thorax is unremarkable. IMPRESSION: Lungs hyperinflated but clear Reported By:
[2018-11-21] MEDS: ROBITUSSIN DM PO SCH ×4 (09:17→21:27)
[2018-11-21] MEDS: NS 1/2 1000 ML IV 1,000 ML IV SCH ×3 (09:18→21:40)
[2018-11-21] MEDS: MICRO K EXTEN CAP 10 MEQ PO SCH (12:11)
[2018-11-21] MEDS: LASIX PO SCH (12:11)
[2018-11-21] MEDS: SYNTHROID 50 mcg TAB PO SCH (12:11)
[2018-11-21] MEDS: ASPIRIN EC 81 MG PO SCH (12:11)
[2018-11-21] MEDS: CULTURELLE PRO-WELL PROBIOTIC CAP PO SCH ×2 (12:12→14:15)
[2018-11-21] MEDS: HEMOCYTE-PLUS PO SCH ×2 (12:12→21:27)
[2018-11-21] MEDS: PEPCID TAB 20 MG PO SCH (12:12)
[2018-11-21] MEDS: FLONASE NASAL SPRAY ENOSTRIL SCH ×2 (12:13→21:28)
[2018-11-21] MEDS: LANOXIN PO SCH (14:16)
[2018-11-21] MEDS: CLARITIN PO SCH (14:17)
--- NOTE | 2018-11-21 19:39 | DR.H&P ---
H&P - History & Physical for Day of: H&P Date: 11/20/18 - Chief Complaint Chief Complaint: COUGH, NAUSEA, VOMITING, DIARRHEA, WEAKNESS - History of Present Illness History of Present Illness: IS A 83 YEAR OLD PATIENT OF OURS. SHE IS A RESIDENT OF [facility]. STAFF REPORTS THAT PATIENT HAS HAD A PRODUCTIVE COUGH, NAUSEA, VOMITING, DIARRHEA, AND WEAKNESS X 2 DAYS. PATIENT REPORTS SHORTNESS OF BREATH. EXAMINATION REVEALED SCATTERED WHEEZING THROUGHOUT. MILD, DIFFUSE ABDOMINAL PAIN NOTED TO PALPATION. ON ARRIVAL, VITALS WERE 97.6-71-20-96%-122/58. LABS WERE OBTAINED. ABNORMAL LAB VALUES INLCLUDE THE FOLLOWING: WBC 10.3, CREATININE 1.26, GLUCOSE 127, ALBUMIN 3.1. URINALYSIS REVEALED WBC 0-2, RBC 0-2, LEUKOCYTES 1+, PROTEIN 2+, OCCULT BLOOD 1+, BACTERIA NEGATIVE. BLOOD, SPUTUM, AND URINE CULTURE OBTAINED AND PENDING. A CHEST XRAY WAS OBTAINED AND REVEALED: LUNGS HYPERINFLATED BUT CLEAR. SHE WAS ADMITTED FOR ACUTE BRONCHITIS, NAUSEA/VOMITING, WEAKNESS, AND MILD DEHYDRATION. SHE WAS STARTED ON 1/2NS, IV LEVAQUIN, IV FORTAZ, RESPIRATORY TREATMENTS, SUPPLEMENTAL OXYGEN, AND ZOFRAN 4MG PO Q8H PRN. WE PLAN TO FOLLOW UP WITH AM LABS AND CONTINUE TO MONITOR. - Past Medical History Past Medical History: Arthritis, CHF, Dyslipidemia, GERD, Hypertension Additional Medical History: Cataracts, Diverticulosis, Muscle Weakness, Back Pain, Skin cancer on nose - Past Surgical History Surgical History: Appendectomy, Hysterectomy, Tonsillectomy Additional Surgical History: Pacemaker placement, Breast reduction - Family History Family Medical History: Diabetes Mellitus, [place], Heart Failure, Hypertension - Social History Does patient currently use any type of tobacco product: No Have you used tobacco products in the last 12 months: No Type of Tobacco Use: None Alcohol Use: None Drug Use: None - Medications Home Medications: shellfish derived Allergy (Verified 12/20/17 17:25) Sulfa (Sulfonamide Antibiotics) [SULFA] Allergy (Verified 12/20/17 17:25) CONTINUE taking the following medications clonidine 1 applic TRANSDERMAL QWEEK 11/20/18 [History] diclofenac sodium [Voltaren] 1 applic TOPICAL Q8H PRN 11/20/18 [History] fluoxetine 10 mg PO HS 11/20/18 [History] fluticasone propionate 1 spray INTRANASAL BID 11/20/18 [History] levothyroxine 50 mcg PO DAILY 11/20/18 [History] melatonin 5 mg PO HS 11/20/18 [History] montelukast 10 mg PO HS 11/20/18 [History] ondansetron HCl [Zofran] 4 mg PO Q8H PRN 11/20/18 [History] oxycodone-acetaminophen [Percocet] 1 tab PO Q6H PRN 11/20/18 [History] warfarin 3 mg PO DAILY 11/20/18 [History] - Review of Systems Constitutional: Weakness, Malaise Eyes: No Symptoms Reported ENT: No Symptoms Reported Respiratory: See HPI, Cough, Shortness of Breath Cardiovascular: No Symptoms Reported Gastrointestinal: See HPI, Nausea, Vomiting, Abdominal Pain, Diarrhea. denies: Constipation, Melena, Hematochezia Genitourinary: No Symptoms Reported Musculoskeletal: No Symptoms Reported Skin: No Symptoms Reported Neurological: Weakness - Physical Exam Vital Signs: Temperature 98.1 F Pulse Rate [Right Radial] 86 Pulse Rate 71 Respiratory Rate 20 Blood Pressure [Left Arm] 101/56 Blood Pressure [Right Arm] 87/51 Blood Pressure 123/60 O2 Sat by Pulse Oximetry 99 Oriented: Normal Eyes: Normal Ear: Normal Nose: Normal Throat: Normal Respiratory: Wheezes Throughout Cardiovascular: Normal, S3, S4, Murmur : Normal Auscultation: Bowel Sounds: Normal Palpation: Normal Tenderness: Diffuse, Mild. negative: Rebound, Guarding, Rigidity Skin: Normal Musculoskeletal: Normal Psychiatric: Normal Mood Description: Calm Affect: Normal Speech Pattern: Clear - Assessment/Plan (1) Acute bronchitis Qualifiers: Bronchitis organism: unspecified organism Qualified Code(s): J20.9 - Acute bronchitis, unspecified Status: Acute Plan: IV LEVAQUIN, IV FORTAZ, RESPIRATORY TX, SUPPLEMENTAL OXYGEN, CONTINUE TO MONITOR (2) Mild dehydration Status: Acute Plan: 1/2NS AT 75ML/HR, CONTINUE TO MONITOR (3) Nausea & vomiting Qualifiers: Vomiting type: unspecified Vomiting Intractability: non-intractable Qualified Code(s): R11.2 - Nausea with vomiting, unspecified Status: Acute Plan: ZOFRAN 4MG PO Q8H PRN, CONTINUE TO MONITOR (4) Weakness Status: Acute - Allergies Allergies/Adverse Reactions: Allergies Allergy/AdvReac Type Severity Reaction Status Date / Time shellfish derived Allergy Verified 12/20/17 17:25 Sulfa (Sulfonamide Allergy Verified 12/20/17 17:25 Antibiotics) [SULFA]
[2018-11-21] MEDS: RESTORIL CAP 15 MG PO PRN (21:29)
[2018-11-22] MEDS: DUONEB 0.5 MG/3 MG NEB SCH ×3 (01:14→08:56)
[2018-11-22 05:31] LABS: ALANINE AMINOTRANSFERASE 15 Units/L (12-78); ALBUMIN 2.6 g/dL (3.4-5.0); ALKALINE PHOSPHATASE 52 Units/L (46-116); ASPARTATE AMINO TRANSFERASE 16 Units/L (15-37); BLOOD UREA NITROGEN 9 mg/dL (7-18); CALCIUM 8.7 mg/dL (8.5-10.1); CARBON DIOXIDE 27.5 mmol/L (21-32); CHLORIDE 104 mmol/L (98-107); COR CA(FOR HYPOALB) 9.8 mg/dL (8.5-10.1); CREATININE 1.29 mg/dL (0.55-1.02); SODIUM 139 mmol/L (136-145); TOTAL PROTEIN 5.7 g/dL (6.4-8.2); eGFR NON BLACK RACES 42 (>60)
[2018-11-22 05:32] LABS: BASOPHILS % (AUTO) 0.5 % (0.2-1.0); EOSINOPHILS # (AUTO) 0.2 x10^3/uL (0.0-0.2); LYMPHOCYTES # (AUTO) 1.5 X10^3/uL (1.3-2.9); MEAN CORPUSCULAR HEMOGLOBIN 32.5 pg (27.0-34.0); MEAN CORPUSCULAR HGB CONC 34.4 g/dL (33.0-35.0); MEAN CORPUSCULAR VOLUME 94.3 fL (80.0-100.0); MEAN PLATELET VOLUME 9.7 fL (7.4-11.0); MONOCYTES # (AUTO) 0.9 x10^3/uL (0.3-0.8); MONOCYTES % (AUTO) 10.7 % (0.0-13.0); NEUTROPHILS # (AUTO) 6.1 x10^3/uL (2.2-4.8); NEUTROPHILS % (AUTO) 69.8 % (42.0-75.0); PLATELET COUNT 202 X10^3/uL (150.0-450.0); RED BLOOD COUNT 3.39 X10^6/uL (3.5-5.4); RED CELL DISTRIBUTION WIDTH 13.7 % (11.6-16.5); WHITE BLOOD COUNT 8.7 X10^3/uL (3.6-10.0)
--- NOTE | 2018-11-22 07:13 | RAD ---
HISTORY: Shortness of breath Study: Chest AP portable Comparison: 11/20/2018 Findings: There is a pacemaker present on the left. The heart is minimally enlarged. No congestive heart failure is noted. No acute alveolar infiltrates or pleural effusions are identified. The bony thorax is unremarkable with the exception of an old healed left clavicular fracture. IMPRESSION: Minimal cardiomegaly without congestive heart failure Lungs clear Reported By:
[2018-11-22] MEDS: LANOXIN PO SCH (08:20)
[2018-11-22] MEDS: HEMOCYTE-PLUS PO SCH (08:20)
[2018-11-22] MEDS: ASPIRIN EC 81 MG PO SCH (08:20)
[2018-11-22] MEDS: SYNTHROID 50 mcg TAB PO SCH (08:20)
[2018-11-22] MEDS: ROBITUSSIN DM PO SCH ×2 (08:21→13:41)
[2018-11-22] MEDS: PEPCID TAB 20 MG PO SCH (08:22)
[2018-11-22] MEDS: LASIX PO SCH (08:22)
[2018-11-22] MEDS: CLARITIN PO SCH (08:22)
[2018-11-22] MEDS: CULTURELLE PRO-WELL PROBIOTIC CAP PO SCH (08:22)
[2018-11-22] MEDS: MICRO K EXTEN CAP 10 MEQ PO SCH (08:22)
[2018-11-22] MEDS: FLONASE NASAL SPRAY ENOSTRIL SCH (08:23)
[2018-11-22] MEDS: NS 1/2 1000 ML IV 1,000 ML IV SCH (10:06)
[2018-11-22 13:34] VITALS: BP 108/53
[~2018-11-22 14:00] MED LIST: AMINO ACIDS PROTEIN HYDROLYS PO SCH; ARICEPT TAB 10 MG PO SCH; CATAPRES-TTS-1 TD SCH; COUMADIN TAB 3 MG PO SCH; FORTAZ or TAZICEF VIAL INJ IVP SCH; K-DUR TAB 20 MEQ PO PRN; K-RIDER 10 MEQ/NS 100 ML 10 MEQ/100 ML BAG IV PRN; KLOR-CON PO PRN; LEVAQUIN PREMIX IV 250 MG 250 MG/50 ML BAG IV SCH; LEVAQUIN PREMIX IV 500 MG 500 MG/100 ML BAG IV SCH; MICRO K EXTEN CAP 10 MEQ PO PRN; NAMENDA TAB 10 MG PO SCH; NS 1/2 1000 ML IV 1,000 ML IV ONE; NS 100 ML IV + SPIKE MINIBAG* 0 ML IV ONE; PATIENT'S HOME MEDICATION (Melatonin [Melatonin] 5 MG) PO SCH; PERCOCET TAB 5/325 MG PO PRN; POTASSIUM CHL 40 MEQ/NS 0.45% 500 ML IV PRN; POTASSIUM CHL 60 MEQ/NS 0.45% 500 ML IV PRN; POTASSIUM CHLORIDE LIQ 20 MEQ UDC PO PRN; PROzac PO SCH; RESTORIL CAP 15 MG PO ONE; SALINE 3% 15 ML NEB TX NEB ONE; SINGULAIR TAB 10 MG PO SCH; TUSSIONEX PENNKINETIC SUSP PO PRN; VOLTAREN 1 % GEL MULTI DOSE TUBE TOP PRN; ZOCOR TAB 20 MG PO SCH; ZOFRAN TAB 4 MG PO PRN; [UNRECOGNIZED DRUG - MIXTURE] PO SCH
--- NOTE | 2018-11-28 21:47 | PCM.PROG ---
Progress Note - Progress Note for Day of Date of Exam: 11/21/18 - Subjective Subjective: WAS ADMITTED FOR ACUTE BRONCHITIS, NAUSEA/VOMITING, WEAKNESS, AND MILD DEHYDRATION. TODAY, SHE IS ALERT AND ORIENTED, LYING IN BED ON MORNING ROUNDS. SHE CONTINUES WITH SHORTNESS OF BREATH AND COUGH THIS MORNING. ON EXAMINATION, HEART IS REGULAR IN RATE AND RHYTHM. BILATERAL LUNGS ARE NOTED WITH SCATTERED WHEEZING THROUGHOUT. ABDOMEN IS ROUND, SOFT, AND NON- TENDER WITH NORMAL BOWEL SOUNDS NOTED IN ALL QUADRANTS. HER VITLAS THIS MORNING ARE 97.5-89-18-98%-104/51. LABS WERE OBTAINED. ABNORMAL LAB VALUES INCLUDE THE FOLLOWING: HGB 11.6, HCT 33.3, INR 2.66, CREATININE 1.14, GLUCOSE 108, TOTAL PROTEIN 5.9, ALBUMIN 2.7. SHE IS CURRENTLY RECEIVING IV FORTAZ, IV LEVAQUIN, RESPIRATORY TX, SUPPLEMENTAL OXYGEN, AND IV HYDRATION. WE WILL CONTINUE WITH CURRENT PLAN OF CARE TODAY. OTHERWISE, WE PLAN TO FOLLOW UP WITH AM LABS AND CONTINUE TO MONITOR. - Past Medical Family Social History Past Med/Fam/Surg Hx: No changes since H&P Allergies: Allergies shellfish derived Allergy (Verified 12/20/17 17:25) Sulfa (Sulfonamide Antibiotics) [SULFA] Allergy (Verified 12/20/17 17:25) - Review of Systems ROS: No change since H&P - Vital Signs and I&O's Vital Signs: Temperature 97.9 F Pulse Rate [Right Radial] 84 Pulse Rate 79 Respiratory Rate 18 Blood Pressure [Left Arm] 101/56 Blood Pressure [Right Arm] 108/53 Blood Pressure 123/60 O2 Sat by Pulse Oximetry 98 - Physical Exam Oriented: Normal Eyes: Normal Ear: Normal Nose: Normal Throat: Normal Respiratory: Generalized, Diminished, Wheezes Cardiovascular: Normal. negative: S3, S4, Murmur : Normal Auscultation: Bowel Sounds: Normal Palpation: Normal Tenderness: Diffuse, Mild. negative: Rebound, Guarding, Rigidity Skin: Normal Musculoskeletal: Normal Psychiatric: Normal Mood Description: Calm Affect: Normal Speech Pattern: Clear, Appropriate - Laboratory and Diagnostics Result Diagrams: 11/22/18 04:06 11/22/18 04:06 Labs: 11/20/18 20:41 Blood Blood Culture - Final 11/20/18 20:49 Blood Blood Culture - Final 11/21/18 03:23 Urine,Clean Catch Urine Culture - Final 11/21/18 12:18 Sputum - Expectorated Sputum Sputum Culture - Final 11/21/18 12:18 Sputum - Expectorated Sputum - Final Laboratory WBC 8.7 X10^3/uL (3.6-10.0) 11/22/18 04:06 RBC 3.39 X10^6/uL (3.5-5.4) L 11/22/18 04:06 Hgb 11.0 g/dL (12.0-16.0) L 11/22/18 04:06 Hct 32.0 % (36.0-47.0) L 11/22/18 04:06 MCV 94.3 fL (80.0-100.0) 11/22/18 04:06 MCH 32.5 pg (27.0-34.0) 11/22/18 04:06 MCHC 34.4 g/dL (33.0-35.0) 11/22/18 04:06 RDW 13.7 % (11.6-16.5) 11/22/18 04:06 Plt Count 202 X10^3/uL (150.0-450.0) 11/22/18 04:06 MPV 9.7 fL (7.4-11.0) 11/22/18 04:06 Neut % (Auto) 69.8 % (42.0-75.0) 11/22/18 04:06 Lymph % (Auto) 17.0 % (21.0-51.0) L 11/22/18 04:06 [place] % (Auto) 10.7 % (0.0-13.0) 11/22/18 04:06 Eos % (Auto) 2.0 % (0.9-2.9) 11/22/18 04:06 Baso % (Auto) 0.5 % (0.2-1.0) 11/22/18 04:06 Neut # (Auto) 6.1 x10^3/uL (2.2-4.8) H 11/22/18 04:06 Lymph # (Auto) 1.5 X10^3/uL (1.3-2.9) 11/22/18 04:06 [place] # (Auto) 0.9 x10^3/uL (0.3-0.8) H 11/22/18 04:06 Eos # (Auto) 0.2 x10^3/uL (0.0-0.2) 11/22/18 04:06 Baso # (Auto) 0.0 X10^3/uL (0.0-0.1) 11/22/18 04:06 Absolute Nucleated RBC 0.0 /100WBC 11/22/18 04:06 INR Target Range - 11/22/18 04:06 INR 3.62 (0.8-1.3) H 11/22/18 04:06 Sodium 139 mmol/L (136-145) 11/22/18 04:06 Corrected Sodium TNP 11/22/18 04:06 Potassium 3.2 mmol/L (3.5-5.1) L 11/22/18 04:06 Chloride 104 mmol/L (98-107) 11/22/18 04:06 Carbon Dioxide 27.5 mmol/L (21-32) 11/22/18 04:06 BUN 9 mg/dL (7-18) 11/22/18 04:06 Creatinine 1.29 mg/dL (0.55-1.02) H 11/22/18 04:06 Est GFR (MDRD) Af Amer 51 (>60) L 11/22/18 04:06 Est GFR (MDRD) Non-Af 42 (>60) L 11/22/18 04:06 Glucose 92 mg/dL (65-99) 11/22/18 04:06 Calcium 8.7 mg/dL (8.5-10.1) 11/22/18 04:06 Corrected Calcium 9.8 mg/dL (8.5-10.1) 11/22/18 04:06 Magnesium 1.8 mg/dL (1.7-2.9) 11/22/18 04:06 Total Bilirubin 0.60 mg/dL (0.2-1.0) 11/22/18 04:06 AST 16 Units/L (15-37) 11/22/18 04:06 ALT 15 Units/L (12-78) 11/22/18 04:06 Alkaline Phosphatase 52 Units/L (46-116) 11/22/18 04:06 Total Protein 5.7 g/dL (6.4-8.2) L 11/22/18 04:06 Albumin 2.6 g/dL (3.4-5.0) L 11/22/18 04:06 Globulin 3.1 g/dL (2.5-4.5) 11/22/18 04:06 Albumin/Globulin Ratio 0.8 Ratio (1.1-2.1) L 11/22/18 04:06 Specimen Type Clean catch urine 11/21/18 03:23 Urine Color Dark yellow (YELLOW) 11/21/18 03:23 Urine Appearance Clear (CLEAR) 11/21/18 03:23 Urine pH 6.5 (5.0 - 8.0) 11/21/18 03:23 Ur Specific [place] 1.005 (1.000-1.030) 11/21/18 03:23 Urine Protein 2+ (NEGATIVE) 11/21/18 03:23 Urine Glucose (UA) Negative (NEGATIVE) 11/21/18 03:23 Urine Ketones Negative (NEGATIVE) 11/21/18 03:23 Urine Occult Blood 1+ (NEGATIVE) 11/21/18 03:23 Urine Nitrite Negative (NEGATIVE) 11/21/18 03:23 Urine Bilirubin Negative (NEGATIVE) 11/21/18 03:23 Urine Urobilinogen Normal (NORMAL) 11/21/18 03:23 Ur Leukocyte Esterase 1+ (NEGATIVE) 11/21/18 03:23 Urine RBC 0-2 /HPF (NONE SEEN) 11/21/18 03:23 Urine WBC 0-2 /HPF (NONE SEEN) 11/21/18 03:23 Ur Squamous Epith Cells Rare /HPF (NEGATIVE) 11/21/18 03:23 Urine Bacteria Negative /HPF (NEGATIVE) 11/21/18 03:23 Ur Culture Indicated? Yes/culture set up 11/21/18 03:23 Digoxin 1.18 ng/mL (0.9-2) 11/21/18 04:12 - Plan (1) Acute bronchitis Status: Acute Qualifiers: Bronchitis organism: unspecified organism Qualified Code(s): J20.9 - Acute bronchitis, unspecified Plan: IV LEVAQUIN, IV FORTAZ, RESPIRATORY TX, SUPPLEMENTAL OXYGEN, CONTINUE TO MONITOR (2) Mild dehydration Status: Acute Plan: 1/2NS AT 75ML/HR, CONTINUE TO MONITOR (3) Nausea & vomiting Status: Acute Qualifiers: Vomiting type: unspecified Vomiting Intractability: non-intractable Qualified Code(s): R11.2 - Nausea with vomiting, unspecified Plan: ZOFRAN 4MG PO Q8H PRN, CONTINUE TO MONITOR (4) Weakness Status: Acute
== END ==
LOC: MED/SURG
PROVIDERS: ADMIT Internal Medicine; ATTEND Internal Medicine
DX: R19.7 Diarrhea, unspecified; R11.2 Nausea with vomiting, unspecified; I10 Essential (primary) hypertension; E78.2 Mixed hyperlipidemia; J20.8 Acute bronchitis due to other specified organisms; R53.1 Weakness; R06.02 Shortness of breath; K21.9 Gastro-esophageal reflux disease without esophagitis; E86.0 Dehydration; Z79.01 Long term (current) use of anticoagulants
CPT/HCPCS: 36415; 71010; 71020; 71045; 71046; 80053; 80162; 81001; 83735; 85025; 85610; 87040; 87070; 87086; 87205; 94640; 94760; 96367; 96374; 97110; 97161; 97166; 97530; A4222; G0378; J0713; J1956; J7620

== ENCOUNTER 2019-03-04 16:32 | Inpatient (IN) ==
[2019-03-04 20:35] LABS: BILIRUBIN,URINE NEGATIVE (NEGATIVE); BLOOD/HEMOGLOBIN,URINE NEGATIVE (NEGATIVE); GLUCOSE, URINE NEGATIVE (NEGATIVE); KETONES,URINE 1+ (NEGATIVE); LEUKOCYTE ESTERASE ,URINE 1+ (NEGATIVE); NITRITES,URINE NEGATIVE (NEGATIVE); PROTEIN,URINE 2+ (NEGATIVE); UROBILINOGEN,URINE NORMAL (NORMAL)
[2019-03-04 20:45] LABS: APPEARANCE,URINE CLEAR (CLEAR); COLOR,URINE YELLOW (YELLOW)
[2019-03-04 20:46] LABS: BACTERIA,URINE TRACE /HPF (NEGATIVE); CALCIUM OXALATE CRYSTALS,UR MODERATE /HPF (NEGATIVE); HYALINE CASTS, URINE FEW /LPF (NEGATIVE); MUCUS,URINE MODERATE /HPF (NEGATIVE); RBC,URINE 0-2 /HPF (NONE SEEN); SQUAMOUS EPITHELIAL CELL,UR FEW /HPF (NEGATIVE)
[2019-03-04 20:52] LABS: BASOPHILS # (AUTO) 0.1 X10^3/uL (0.0-0.1); EOSINOPHILS # (AUTO) 0.2 x10^3/uL (0.0-0.2); EOSINOPHILS % (AUTO) 2.2 % (0.9-2.9); HEMATOCRIT 32.7 % (36.0-47.0); HEMOGLOBIN 11.1 g/dL (12.0-16.0); LYMPHOCYTES # (AUTO) 1.7 X10^3/uL (1.3-2.9); LYMPHOCYTES % (AUTO) 16.5 % (21.0-51.0); MEAN CORPUSCULAR HEMOGLOBIN 32.3 pg (27.0-34.0); MEAN CORPUSCULAR HGB CONC 33.9 g/dL (33.0-35.0); MEAN PLATELET VOLUME 9.8 fL (7.4-11.0); MONOCYTES # (AUTO) 1.3 x10^3/uL (0.3-0.8); MONOCYTES % (AUTO) 12.6 % (0.0-13.0); NEUTROPHILS # (AUTO) 6.9 x10^3/uL (2.2-4.8); NEUTROPHILS % (AUTO) 67.7 % (42.0-75.0); PLATELET COUNT 221 X10^3/uL (150.0-450.0); RED BLOOD COUNT 3.44 X10^6/uL (3.5-5.4); RED CELL DISTRIBUTION WIDTH 14.1 % (11.6-16.5); WHITE BLOOD COUNT 10.2 X10^3/uL (3.6-10.0)
[2019-03-04 21:02] LABS: ALANINE AMINOTRANSFERASE 33 Units/L (12-78); ALBUMIN 2.5 g/dL (3.4-5.0); ALKALINE PHOSPHATASE 58 Units/L (46-116); ASPARTATE AMINO TRANSFERASE 27 Units/L (15-37); BLOOD UREA NITROGEN 11 mg/dL (7-18); CALCIUM 8.7 mg/dL (8.5-10.1); CARBON DIOXIDE 25.6 mmol/L (21-32); CHLORIDE 111 mmol/L (98-107); COR CA(FOR HYPOALB) 9.9 mg/dL (8.5-10.1); CREATININE 1.28 mg/dL (0.55-1.02); SODIUM 145 mmol/L (136-145); TOTAL PROTEIN 5.9 g/dL (6.4-8.2); eGFR NON BLACK RACES 42 (>60)
[2019-03-04] MEDS: NS 1000 ML 1,000 ML IV SCH (21:27)
[2019-03-04] MEDS: PROTONIX INJ 40 MG VIAL IVP SCH (21:27)
[2019-03-04] MEDS: PEPCID 20 MG IV PREMIX* 20 MG/50 ML BAG IV SCH (21:57)
[2019-03-04] MEDS ORDERED: MICRO K EXTEN CAP 10 MEQ PO PRN (22:46)
[2019-03-04] MEDS ORDERED: K-DUR TAB 20 MEQ PO PRN (22:46)
[2019-03-04] MEDS ORDERED: POTASSIUM CHL 40 MEQ/NS 0.45% 500 ML IV PRN (22:46)
[2019-03-04] MEDS ORDERED: POTASSIUM CHL 60 MEQ/NS 0.45% 500 ML IV PRN (22:46)
[2019-03-04] MEDS ORDERED: MAGNESIUM SULFATE 1 GRAM/100 mL PREMIX 1 GM/100 ML BAG IV PRN (22:46)
[2019-03-04] MEDS ORDERED: POTASSIUM CHLORIDE LIQ 20 MEQ UDC PO PRN (22:46)
[2019-03-04] MEDS ORDERED: K-RIDER 10 MEQ/NS 100 ML 10 MEQ/100 ML BAG IV PRN (22:46)
[2019-03-05 06:04] LABS: BASOPHILS # (AUTO) 0.1 X10^3/uL (0.0-0.1); BASOPHILS % (AUTO) 0.9 % (0.2-1.0); EOSINOPHILS # (AUTO) 0.3 x10^3/uL (0.0-0.2); EOSINOPHILS % (AUTO) 3.3 % (0.9-2.9); HEMOGLOBIN 10.9 g/dL (12.0-16.0); LYMPHOCYTES # (AUTO) 2.2 X10^3/uL (1.3-2.9); LYMPHOCYTES % (AUTO) 23.1 % (21.0-51.0); MEAN CORPUSCULAR HEMOGLOBIN 32.2 pg (27.0-34.0); MEAN CORPUSCULAR HGB CONC 34.1 g/dL (33.0-35.0); MEAN CORPUSCULAR VOLUME 94.6 fL (80.0-100.0); MEAN PLATELET VOLUME 9.6 fL (7.4-11.0); MONOCYTES % (AUTO) 10.3 % (0.0-13.0); NEUTROPHILS % (AUTO) 62.4 % (42.0-75.0); PLATELET COUNT 217 X10^3/uL (150.0-450.0); RED BLOOD COUNT 3.39 X10^6/uL (3.5-5.4); RED CELL DISTRIBUTION WIDTH 14.3 % (11.6-16.5); WHITE BLOOD COUNT 9.6 X10^3/uL (3.6-10.0)
[2019-03-05] MEDS: NS 1000 ML 1,000 ML IV SCH ×3 (06:14→21:53)
[2019-03-05 06:30] LABS: ALANINE AMINOTRANSFERASE 29 Units/L (12-78); ALBUMIN 2.3 g/dL (3.4-5.0); ALKALINE PHOSPHATASE 53 Units/L (46-116); ASPARTATE AMINO TRANSFERASE 22 Units/L (15-37); BLOOD UREA NITROGEN 11 mg/dL (7-18); CALCIUM 8.5 mg/dL (8.5-10.1); CHLORIDE 113 mmol/L (98-107); COR CA(FOR HYPOALB) 9.9 mg/dL (8.5-10.1); SODIUM 145 mmol/L (136-145); TOTAL PROTEIN 5.7 g/dL (6.4-8.2); eGFR NON BLACK RACES 51 (>60)
[2019-03-05 07:24] VITALS: BMI 19.1
[2019-03-05] MEDS: PROTONIX INJ 40 MG VIAL IVP SCH ×2 (08:17→21:57)
[2019-03-05] MEDS: KLOR-CON PO PRN (08:17)
[2019-03-05] MEDS: PROCALAMINE 3 % 1,000 ML IV SCH (11:07)
[2019-03-05] MEDS ORDERED: VOLTAREN 1 % GEL MULTI DOSE TUBE TOP PRN (11:18)
[2019-03-05] MEDS ORDERED: PERCOCET TAB 5/325 MG PO PRN (11:18)
[2019-03-05] MEDS ORDERED: ZOFRAN TAB 4 MG PO PRN (11:18)
[2019-03-05] MEDS ORDERED: TUSSIONEX PENNKINETIC SUSP PO PRN (11:18)
[2019-03-05] MEDS: MICRO K EXTEN CAP 10 MEQ PO SCH (11:51)
[2019-03-05] MEDS ORDERED: FOOD SUPPLEMT LACTOSE REDUCED PO SCH (13:00)
[2019-03-05] MEDS: CLARITIN PO SCH (13:40)
[2019-03-05] MEDS: ASPIRIN EC 81 MG PO SCH (13:40)
[2019-03-05] MEDS: FLONASE NASAL SPRAY ENOSTRIL SCH ×2 (13:40→21:57)
[2019-03-05] MEDS: MEGACE PO SCH ×2 (13:41→21:55)
[2019-03-05] MEDS: ZyPREXA TAB 5 MG PO SCH ×2 (13:41→21:56)
[2019-03-05] MEDS: LANOXIN PO SCH (13:41)
[2019-03-05] MEDS: SYNTHROID 50 mcg TAB PO SCH (13:41)
--- NOTE | 2019-03-05 16:50 | DR.UPDATE ---
H&P Update History and Physical Update: WAS SEEN IN THE OFFICE TODAY DUE TO DIARREHA, WEAKNESS, FATIGUE, AND SHORTNESS OF BREATH. SHE WAS STARTED ON TREATMENT FOR C-DIFF ONE MONTH AGO. SYMPTOMS HAVE NOT SHOWN ANY IMPROVEMENT ACCORDING TO FAMILY. WE ADMITTED PATIENT FOR FURTHER EVALUATION AND TREATMENT. ON ADMISSION, WE PLAN TO OBTAIN LABS, STOOL STUDIES, AND A KUB. WE WILL START HER ON NORMAL SALINE AT 80ML/HR, PEPCID IV, AND PROTONIX IV. WE WILL REVIEW HER HOME MEDICATIONS. OTHERWISE, WE PLAN TO FOLLOW UP AND CONTINUE TO MONITOR. NO OTHER CHANGES NOTED TO H&P. Changes noted: NO Prescription drug monitoring program results: PDMP reviewed and no concerns identified
--- NOTE | 2019-03-05 17:14 | PCM.PROG ---
Progress Note - Progress Note for Day of Date of Exam: 03/05/19 - Subjective Subjective: WAS ADMITTED FOR DIARRHEA, WEAKNESS, AND FATIGUE. TODAY, SHE IS ALERT, LYING IN BED ON MORNING ROUNDS. SHE CONTINUES WITH COMPLAINTS OF WEAKNESS AND DIARRHEA. STAFF ATTEPTED TO COLLECT A STOOL FOR STOOL STUDIES, HOWEVER, THEY WERE UNSUCCESSFUL. ON EXAMINATION, HEART IS REGULAR IN RATE AND RHYTHM. BILATERAL LUNGS ARE NOTED WITH DIMINISHED LUNG SOUNDS THROUGHOUT. ABDOMEN IS ROUND, SOFT, AND NOTED WITH DIFFUSE TENDERNESS TO PALPATION. HER VITALS THIS MORNING ARE: 97.8-74-18-97%-135/60. LABS WERE OBTAINED. ABNORMAL LAB VALUES INCLUDE THE FOLLOWING: WBC 10.2, RBC 3.44, HGB 11.1, HCT 32.7, CHLORIDE 111, CREATININE 1.28, TOTAL PROTEIN 5.9, ALBUMIN 2.5. SHE IS CURRENTLY RECEIVING NORMAL SALINE AT 80ML/HR, PEPCID IV, AND PROTONIX IV. TODAY, WE WILL START PROCAL AND ALBUMIN 25% IV DAILY. WE WILL CONTINUE TO COLLECT A STOOL SAMPLE FOR STOOL STUDIES. OTHERWISE, WE PLAN TO FOLLOW UP WITH AM LABS AND CONTINUE TO MONITOR. - Past Medical Family Social History Past Med/Fam/Surg Hx: No changes since H&P Allergies: Allergies shellfish derived Allergy (Verified 12/20/17 17:25) Sulfa (Sulfonamide Antibiotics) [SULFA] Allergy (Verified 12/20/17 17:25) - Review of Systems ROS: No change since H&P - Vital Signs and I&O's Vital Signs: Temperature 98.2 F Pulse Rate [Left Radial] 63 Pulse Rate 69 Respiratory Rate 18 Blood Pressure [Left Arm] 137/61 Blood Pressure [Right Arm] 125/58 Blood Pressure 150/69 O2 Sat by Pulse Oximetry 97 Intake and Output: Intake & Output 03/03/19 03/04/19 03/05/19 03/06/19 11:59 11:59 11:59 11:59 Intake Total 420 / 420 1210 / 1210 Balance 420 / 420 1210 / 1210 - Physical Exam Oriented: Person Eyes: Normal Ear: Normal Nose: Normal Respiratory: Generalized, Diminished Cardiovascular: Normal. negative: S3, S4, Murmur : Normal Auscultation: Bowel Sounds: Normal Palpation: Normal Tenderness: Diffuse, Moderate. negative: Rebound, Guarding, Rigidity Skin: Decreased [place] Musculoskeletal: Normal Psychiatric: Normal Mood Description: Calm Affect: Normal Speech Pattern: Clear, Appropriate - Laboratory and Diagnostics Result Diagrams: 03/05/19 05:30 03/05/19 05:30 Labs: Laboratory WBC 9.6 X10^3/uL (3.6-10.0) 03/05/19 05:30 RBC 3.39 X10^6/uL (3.5-5.4) L 03/05/19 05:30 Hgb 10.9 g/dL (12.0-16.0) L 03/05/19 05:30 Hct 32.0 % (36.0-47.0) L 03/05/19 05:30 MCV 94.6 fL (80.0-100.0) 03/05/19 05:30 MCH 32.2 pg (27.0-34.0) 03/05/19 05:30 MCHC 34.1 g/dL (33.0-35.0) 03/05/19 05:30 RDW 14.3 % (11.6-16.5) 03/05/19 05:30 Plt Count 217 X10^3/uL (150.0-450.0) 03/05/19 05:30 MPV 9.6 fL (7.4-11.0) 03/05/19 05:30 Neut % (Auto) 62.4 % (42.0-75.0) 03/05/19 05:30 Lymph % (Auto) 23.1 % (21.0-51.0) 03/05/19 05:30 [place] % (Auto) 10.3 % (0.0-13.0) 03/05/19 05:30 Eos % (Auto) 3.3 % (0.9-2.9) H 03/05/19 05:30 Baso % (Auto) 0.9 % (0.2-1.0) 03/05/19 05:30 Neut # (Auto) 6.0 x10^3/uL (2.2-4.8) H 03/05/19 05:30 Lymph # (Auto) 2.2 X10^3/uL (1.3-2.9) 03/05/19 05:30 [place] # (Auto) 1.0 x10^3/uL (0.3-0.8) H 03/05/19 05:30 Eos # (Auto) 0.3 x10^3/uL (0.0-0.2) H 03/05/19 05:30 Baso # (Auto) 0.1 X10^3/uL (0.0-0.1) 03/05/19 05:30 Absolute Nucleated RBC 0.0 /100WBC 03/05/19 05:30 Sodium 145 mmol/L (136-145) 03/05/19 05:30 Corrected Sodium TNP 03/05/19 05:30 Potassium 3.5 mmol/L (3.5-5.1) 03/05/19 05:30 Chloride 113 mmol/L (98-107) H 03/05/19 05:30 Carbon Dioxide 22.0 mmol/L (21-32) 03/05/19 05:30 BUN 11 mg/dL (7-18) 03/05/19 05:30 Creatinine 1.10 mg/dL (0.55-1.02) H 03/05/19 05:30 Est GFR (MDRD) Af Amer > 60 (>60) 03/05/19 05:30 Est GFR (MDRD) Non-Af 51 (>60) L 03/05/19 05:30 Glucose 77 mg/dL (65-99) 03/05/19 05:30 POC Glucose (mg/dL) 88 mg/dL (65-99) 03/04/19 20:51 Calcium 8.5 mg/dL (8.5-10.1) 03/05/19 05:30 Corrected Calcium 9.9 mg/dL (8.5-10.1) 03/05/19 05:30 Magnesium 2.0 mg/dL (1.7-2.9) 03/05/19 05:30 Total Bilirubin 0.60 mg/dL (0.2-1.0) 03/05/19 05:30 AST 22 Units/L (15-37) 03/05/19 05:30 ALT 29 Units/L (12-78) 03/05/19 05:30 Alkaline Phosphatase 53 Units/L (46-116) 03/05/19 05:30 Total Protein 5.7 g/dL (6.4-8.2) L 03/05/19 05:30 Albumin 2.3 g/dL (3.4-5.0) L 03/05/19 05:30 Globulin 3.4 g/dL (2.5-4.5) 03/05/19 05:30 Albumin/Globulin Ratio 0.7 Ratio (1.1-2.1) L 03/05/19 05:30 Specimen Type Clean catch urine 03/04/19 20:28 Urine Color Yellow (YELLOW) 03/04/19 20:28 Urine Appearance Clear (CLEAR) 03/04/19 20:28 Urine pH 5.0 (5.0 - 8.0) 03/04/19 20:28 Ur Specific [place] 1.025 (1.000-1.030) 03/04/19 20:28 Urine Protein 2+ (NEGATIVE) 03/04/19 20:28 Urine Glucose (UA) Negative (NEGATIVE) 03/04/19 20:28 Urine Ketones 1+ (NEGATIVE) 03/04/19 20:28 Urine Occult Blood Negative (NEGATIVE) 03/04/19 20:28 Urine Nitrite Negative (NEGATIVE) 03/04/19 20:28 Urine Bilirubin Negative (NEGATIVE) 03/04/19 20:28 Urine Urobilinogen Normal (NORMAL) 03/04/19 20:28 Ur Leukocyte Esterase 1+ (NEGATIVE) 03/04/19 20:28 Urine RBC 0-2 /HPF (NONE SEEN) 03/04/19 20:28 Urine WBC 0-2 /HPF (NONE SEEN) 03/04/19 20:28 Ur Squamous Epith Cells Few /HPF (NEGATIVE) 03/04/19 20:28 Calcium Oxalate Crystal Moderate /HPF (NEGATIVE) 03/04/19 20:28 Urine Bacteria Trace /HPF (NEGATIVE) 03/04/19 20:28 Hyaline Casts Few /LPF (NEGATIVE) 03/04/19 20:28 Urine Mucus Moderate /HPF (NEGATIVE) 03/04/19 20:28 Ur Culture Indicated? No/not indicated 03/04/19 20:28 Digoxin 1.15 ng/mL (0.9-2) 03/05/19 05:30 - Plan (1) Intractable diarrhea Status: Acute Plan: IV FLUIDS, PROBIOTICS, STOOL STUDIES, CONTINUE TO MONITOR (2) Weakness Status: Acute
[2019-03-05] MEDS: ALBUMIN HUMAN 25%- 100 ML 100 ML IV SCH (17:54)
[2019-03-05] MEDS ORDERED: PROzac PO SCH (21:00)
[2019-03-05] MEDS: ATIVAN TAB 0.5 MG PO SCH (21:54)
[2019-03-05] MEDS: SINGULAIR TAB 10 MG PO SCH (21:55)
[2019-03-05] MEDS: NAMENDA TAB 10 MG PO SCH (21:55)
[2019-03-05] MEDS: HEMOCYTE-PLUS PO SCH (21:55)
[2019-03-05] MEDS: PEPCID 20 MG IV PREMIX* 20 MG/50 ML BAG IV SCH (21:56)
[2019-03-05] MEDS: XARELTO PO SCH (21:56)
[2019-03-05] MEDS: ARICEPT TAB 10 MG PO SCH (21:56)
[2019-03-05] MEDS: ZOCOR TAB 20 MG PO SCH (21:56)
[2019-03-05] MEDS: PATIENT'S HOME MEDICATION (Melatonin [Melatonin] 5 MG) PO SCH (21:57)
[2019-03-06 06:12] LABS: BASOPHILS # (AUTO) 0.1 X10^3/uL (0.0-0.1); EOSINOPHILS # (AUTO) 0.3 x10^3/uL (0.0-0.2); EOSINOPHILS % (AUTO) 4.7 % (0.9-2.9); HEMATOCRIT 28.9 % (36.0-47.0); HEMOGLOBIN 9.9 g/dL (12.0-16.0); LYMPHOCYTES # (AUTO) 1.4 X10^3/uL (1.3-2.9); LYMPHOCYTES % (AUTO) 19.7 % (21.0-51.0); MEAN CORPUSCULAR HEMOGLOBIN 32.6 pg (27.0-34.0); MEAN CORPUSCULAR HGB CONC 34.5 g/dL (33.0-35.0); MEAN CORPUSCULAR VOLUME 94.7 fL (80.0-100.0); MEAN PLATELET VOLUME 9.5 fL (7.4-11.0); MONOCYTES # (AUTO) 0.9 x10^3/uL (0.3-0.8); MONOCYTES % (AUTO) 12.1 % (0.0-13.0); NEUTROPHILS # (AUTO) 4.5 x10^3/uL (2.2-4.8); NEUTROPHILS % (AUTO) 62.5 % (42.0-75.0); PLATELET COUNT 189 X10^3/uL (150.0-450.0); RED BLOOD COUNT 3.05 X10^6/uL (3.5-5.4); RED CELL DISTRIBUTION WIDTH 14.7 % (11.6-16.5); WHITE BLOOD COUNT 7.2 X10^3/uL (3.6-10.0)
[2019-03-06 06:45] LABS: ALANINE AMINOTRANSFERASE 22 Units/L (12-78); ALBUMIN 2.5 g/dL (3.4-5.0); ALKALINE PHOSPHATASE 45 Units/L (46-116); ASPARTATE AMINO TRANSFERASE 14 Units/L (15-37); BLOOD UREA NITROGEN 6 mg/dL (7-18); CALCIUM 8.6 mg/dL (8.5-10.1); CHLORIDE 114 mmol/L (98-107); COR CA(FOR HYPOALB) 9.8 mg/dL (8.5-10.1); SODIUM 146 mmol/L (136-145); TOTAL PROTEIN 5.5 g/dL (6.4-8.2); eGFR NON BLACK RACES > 60 (>60)
[2019-03-06] MEDS: ASPIRIN EC 81 MG PO SCH (08:20)
[2019-03-06] MEDS: MEGACE PO SCH ×2 (08:20→20:35)
[2019-03-06] MEDS: SYNTHROID 50 mcg TAB PO SCH (08:20)
[2019-03-06] MEDS: ZyPREXA TAB 5 MG PO SCH (08:20)
[2019-03-06] MEDS: CLARITIN PO SCH (08:20)
[2019-03-06] MEDS: HEMOCYTE-PLUS PO SCH ×2 (08:21→20:35)
[2019-03-06] MEDS: VSL#3 PO SCH (08:21)
[2019-03-06] MEDS: LANOXIN PO SCH (08:21)
[2019-03-06] MEDS: MICRO K EXTEN CAP 10 MEQ PO SCH (08:21)
[2019-03-06] MEDS: PROTONIX INJ 40 MG VIAL IVP SCH ×2 (08:22→20:36)
[2019-03-06] MEDS: ALBUMIN HUMAN 25%- 100 ML 100 ML IV SCH (08:22)
[2019-03-06] MEDS: FLONASE NASAL SPRAY ENOSTRIL SCH ×2 (08:23→20:35)
[2019-03-06] MEDS: NS 1000 ML 1,000 ML IV SCH ×4 (08:31→21:41)
[2019-03-06] MEDS: PROCALAMINE 3 % 1,000 ML IV SCH (11:26)
[2019-03-06] MEDS: WELLBUTRIN XL 150 MG (DAILY) PO SCH (11:26)
--- NOTE | 2019-03-06 18:18 | PCM.PROG ---
Progress Note - Progress Note for Day of Date of Exam: 03/06/19 - Subjective Subjective: WAS ADMITTED FOR DIARRHEA, WEAKNESS, AND FATIGUE. TODAY, SHE IS LYING IN BED WITH EYES CLOSED ON MORNING ROUNDS. SHE AWAKENS TO VERBAL STIMULI, BUT IS DROWSY. SHE CONTINUES WITH COMPLAINTS OF WEAKNESS AND DIARRHEA. ON EXAMINATION, HEART IS REGULAR IN RATE AND RHYTHM. BILATERAL LUNGS ARE NOTED WITH DIMINISHED LUNG SOUNDS THROUGHOUT. ABDOMEN IS ROUND, SOFT, AND NOTED WITH DIFFUSE TENDERNESS TO PALPATION. HER VITALS THIS MORNING ARE: 97.7-70-20-98%-133/59. LABS WERE OBTAINED. ABNORMAL LAB VALUES INCLUDE THE FOLLOWING: RBC 3.39, HGB 10.9, HCT 32.0, CHLORIDE 113, CREATININE 1.10, TOTAL PROTEIN 5.7, ALBUMIN 2.3. SHE IS CURRENTLY RECEIVING NORMAL SALINE AT 80ML/HR, PEPCID IV, AND PROTONIX IV. TODAY, WE WILL DECREASE HER ZYPREXA AND PROZAC. WE WILL ADD WELLBUTRIN XL 150MG PO DAILY. WE WILL CONTINUE TO ATTEMPT TO COLLECT A STOOL SAMPLE FOR STOOL STUDIES. OTHERWISE, WE PLAN TO FOLLOW UP WITH AM LABS AND CONTINUE TO MONITOR. - Past Medical Family Social History Past Med/Fam/Surg Hx: No changes since H&P Allergies: Allergies shellfish derived Allergy (Verified 12/20/17 17:25) Sulfa (Sulfonamide Antibiotics) [SULFA] Allergy (Verified 12/20/17 17:25) - Review of Systems ROS: No change since H&P - Vital Signs and I&O's Vital Signs: Temperature 98.5 F Pulse Rate [Left Radial] 70 Pulse Rate 70 Respiratory Rate 18 Blood Pressure [Left Arm] 143/63 Blood Pressure [Right Arm] 125/58 Blood Pressure 150/69 O2 Sat by Pulse Oximetry 98 Intake and Output: Intake & Output 03/04/19 03/05/19 03/06/19 03/07/19 11:59 11:59 11:59 11:59 Intake Total 420 / 420 3166 / 3166 1184 / 1184 Balance 420 / 420 3166 / 3166 1184 / 1184 - Physical Exam Oriented: Person Eyes: Normal Ear: Normal Nose: Normal Throat: Normal Respiratory: Generalized, Diminished Cardiovascular: Normal. negative: S3, S4, Murmur : Normal Auscultation: Bowel Sounds: Normal Palpation: Normal Tenderness: Diffuse, Moderate. negative: Rebound, Guarding, Rigidity Skin: Decreased Turgur Musculoskeletal: Normal Psychiatric: Normal Mood Description: Calm Affect: Normal Speech Pattern: Clear, Appropriate - Laboratory and Diagnostics Result Diagrams: 03/06/19 05:38 03/06/19 05:38 Labs: Laboratory WBC 7.2 X10^3/uL (3.6-10.0) 03/06/19 05:38 RBC 3.05 X10^6/uL (3.5-5.4) L 03/06/19 05:38 Hgb 9.9 g/dL (12.0-16.0) L 03/06/19 05:38 Hct 28.9 % (36.0-47.0) L 03/06/19 05:38 MCV 94.7 fL (80.0-100.0) 03/06/19 05:38 MCH 32.6 pg (27.0-34.0) 03/06/19 05:38 MCHC 34.5 g/dL (33.0-35.0) 03/06/19 05:38 RDW 14.7 % (11.6-16.5) 03/06/19 05:38 Plt Count 189 X10^3/uL (150.0-450.0) 03/06/19 05:38 MPV 9.5 fL (7.4-11.0) 03/06/19 05:38 Neut % (Auto) 62.5 % (42.0-75.0) 03/06/19 05:38 Lymph % (Auto) 19.7 % (21.0-51.0) L 03/06/19 05:38 [place] % (Auto) 12.1 % (0.0-13.0) 03/06/19 05:38 Eos % (Auto) 4.7 % (0.9-2.9) H 03/06/19 05:38 Baso % (Auto) 1.0 % (0.2-1.0) 03/06/19 05:38 Neut # (Auto) 4.5 x10^3/uL (2.2-4.8) 03/06/19 05:38 Lymph # (Auto) 1.4 X10^3/uL (1.3-2.9) 03/06/19 05:38 [place] # (Auto) 0.9 x10^3/uL (0.3-0.8) H 03/06/19 05:38 Eos # (Auto) 0.3 x10^3/uL (0.0-0.2) H 03/06/19 05:38 Baso # (Auto) 0.1 X10^3/uL (0.0-0.1) 03/06/19 05:38 Absolute Nucleated RBC 0.0 /100WBC 03/06/19 05:38 Sodium 146 mmol/L (136-145) H 03/06/19 05:38 Corrected Sodium TNP 03/06/19 05:38 Potassium 3.4 mmol/L (3.5-5.1) L 03/06/19 05:38 Chloride 114 mmol/L (98-107) H 03/06/19 05:38 Carbon Dioxide 22.0 mmol/L (21-32) 03/06/19 05:38 BUN 6 mg/dL (7-18) L 03/06/19 05:38 Creatinine 0.90 mg/dL (0.55-1.02) 03/06/19 05:38 Est GFR (MDRD) Af Amer > 60 (>60) 03/06/19 05:38 Est GFR (MDRD) Non-Af > 60 (>60) 03/06/19 05:38 Glucose 83 mg/dL (65-99) 03/06/19 05:38 POC Glucose (mg/dL) 88 mg/dL (65-99) 03/04/19 20:51 Calcium 8.6 mg/dL (8.5-10.1) 03/06/19 05:38 Corrected Calcium 9.8 mg/dL (8.5-10.1) 03/06/19 05:38 Magnesium 2.0 mg/dL (1.7-2.9) 03/05/19 05:30 Total Bilirubin 0.70 mg/dL (0.2-1.0) 03/06/19 05:38 AST 14 Units/L (15-37) L 03/06/19 05:38 ALT 22 Units/L (12-78) 03/06/19 05:38 Alkaline Phosphatase 45 Units/L (46-116) L 03/06/19 05:38 Total Protein 5.5 g/dL (6.4-8.2) L 03/06/19 05:38 Albumin 2.5 g/dL (3.4-5.0) L 03/06/19 05:38 Globulin 3.0 g/dL (2.5-4.5) 03/06/19 05:38 Albumin/Globulin Ratio 0.8 Ratio (1.1-2.1) L 03/06/19 05:38 Specimen Type Clean catch urine 03/04/19 20:28 Urine Color Yellow (YELLOW) 03/04/19 20:28 Urine Appearance Clear (CLEAR) 03/04/19 20:28 Urine pH 5.0 (5.0 - 8.0) 03/04/19 20:28 Ur Specific [place] 1.025 (1.000-1.030) 03/04/19 20:28 Urine Protein 2+ (NEGATIVE) 03/04/19 20:28 Urine Glucose (UA) Negative (NEGATIVE) 03/04/19 20:28 Urine Ketones 1+ (NEGATIVE) 03/04/19 20:28 Urine Occult Blood Negative (NEGATIVE) 03/04/19 20:28 Urine Nitrite Negative (NEGATIVE) 03/04/19 20:28 Urine Bilirubin Negative (NEGATIVE) 03/04/19 20:28 Urine Urobilinogen Normal (NORMAL) 03/04/19 20:28 Ur Leukocyte Esterase 1+ (NEGATIVE) 03/04/19 20:28 Urine RBC 0-2 /HPF (NONE SEEN) 03/04/19 20:28 Urine WBC 0-2 /HPF (NONE SEEN) 03/04/19 20:28 Ur Squamous Epith Cells Few /HPF (NEGATIVE) 03/04/19 20:28 Calcium Oxalate Crystal Moderate /HPF (NEGATIVE) 03/04/19 20:28 Urine Bacteria Trace /HPF (NEGATIVE) 03/04/19 20:28 Hyaline Casts Few /LPF (NEGATIVE) 03/04/19 20:28 Urine Mucus Moderate /HPF (NEGATIVE) 03/04/19 20:28 Ur Culture Indicated? No/not indicated 03/04/19 20:28 Digoxin 1.15 ng/mL (0.9-2) 03/05/19 05:30 - Plan (1) Intractable diarrhea Status: Acute Plan: IV FLUIDS, PROBIOTICS, STOOL STUDIES, CONTINUE TO MONITOR (2) Weakness Status: Acute
[2019-03-06] MEDS: ATIVAN TAB 0.5 MG PO SCH (20:35)
[2019-03-06] MEDS: ARICEPT TAB 10 MG PO SCH (20:35)
[2019-03-06] MEDS: PATIENT'S HOME MEDICATION (Melatonin [Melatonin] 5 MG) PO SCH (20:35)
[2019-03-06] MEDS: PEPCID 20 MG IV PREMIX* 20 MG/50 ML BAG IV SCH (20:36)
[2019-03-06] MEDS: SINGULAIR TAB 10 MG PO SCH (20:36)
[2019-03-06] MEDS: NAMENDA TAB 10 MG PO SCH (20:36)
[2019-03-06] MEDS: PROzac PO SCH (20:36)
[2019-03-06] MEDS: ZOCOR TAB 20 MG PO SCH (20:37)
[2019-03-06] MEDS: XARELTO PO SCH (20:37)
[2019-03-07 05:23] LABS: BASOPHILS # (AUTO) 0.1 X10^3/uL (0.0-0.1); BASOPHILS % (AUTO) 1.1 % (0.2-1.0); EOSINOPHILS # (AUTO) 0.3 x10^3/uL (0.0-0.2); EOSINOPHILS % (AUTO) 3.4 % (0.9-2.9); HEMATOCRIT 29.1 % (36.0-47.0); HEMOGLOBIN 10.1 g/dL (12.0-16.0); LYMPHOCYTES % (AUTO) 21.3 % (21.0-51.0); MEAN CORPUSCULAR HEMOGLOBIN 33.1 pg (27.0-34.0); MEAN CORPUSCULAR HGB CONC 34.7 g/dL (33.0-35.0); MEAN CORPUSCULAR VOLUME 95.5 fL (80.0-100.0); MONOCYTES # (AUTO) 1.1 x10^3/uL (0.3-0.8); MONOCYTES % (AUTO) 11.7 % (0.0-13.0); NEUTROPHILS # (AUTO) 5.8 x10^3/uL (2.2-4.8); NEUTROPHILS % (AUTO) 62.5 % (42.0-75.0); PLATELET COUNT 191 X10^3/uL (150.0-450.0); RED BLOOD COUNT 3.05 X10^6/uL (3.5-5.4); RED CELL DISTRIBUTION WIDTH 14.5 % (11.6-16.5); WHITE BLOOD COUNT 9.3 X10^3/uL (3.6-10.0)
[2019-03-07 05:29] LABS: ALANINE AMINOTRANSFERASE 18 Units/L (12-78); ALBUMIN 2.9 g/dL (3.4-5.0); ALKALINE PHOSPHATASE 44 Units/L (46-116); ASPARTATE AMINO TRANSFERASE 14 Units/L (15-37); BLOOD UREA NITROGEN 5 mg/dL (7-18); CALCIUM 8.6 mg/dL (8.5-10.1); CARBON DIOXIDE 23.2 mmol/L (21-32); CHLORIDE 112 mmol/L (98-107); COR CA(FOR HYPOALB) 9.5 mg/dL (8.5-10.1); CREATININE 0.92 mg/dL (0.55-1.02); SODIUM 145 mmol/L (136-145); TOTAL PROTEIN 5.6 g/dL (6.4-8.2); eGFR NON BLACK RACES > 60 (>60)
[2019-03-07] MEDS ORDERED: CATAPRES-TTS-1 TD SCH (09:00)
[2019-03-07] MEDS: ALBUMIN HUMAN 25%- 100 ML 100 ML IV SCH (09:13)
[2019-03-07] MEDS: ASPIRIN EC 81 MG PO SCH (09:13)
[2019-03-07] MEDS: FLONASE NASAL SPRAY ENOSTRIL SCH ×2 (09:14→21:29)
[2019-03-07] MEDS: HEMOCYTE-PLUS PO SCH ×2 (09:14→21:29)
[2019-03-07] MEDS: CLARITIN PO SCH (09:14)
[2019-03-07] MEDS: LANOXIN PO SCH (09:15)
[2019-03-07] MEDS: SYNTHROID 50 mcg TAB PO SCH (09:16)
[2019-03-07] MEDS: PROTONIX INJ 40 MG VIAL IVP SCH ×2 (09:16→21:30)
[2019-03-07] MEDS: MEGACE PO SCH ×2 (09:16→21:29)
[2019-03-07] MEDS: MICRO K EXTEN CAP 10 MEQ PO SCH (09:16)
[2019-03-07] MEDS: WELLBUTRIN XL 150 MG (DAILY) PO SCH (09:17)
[2019-03-07] MEDS: VSL#3 PO SCH (09:17)
[2019-03-07] MEDS: NS 1000 ML 1,000 ML IV SCH (12:38)
[2019-03-07] MEDS: PROCALAMINE 3 % 1,000 ML IV SCH (12:39)
[2019-03-07 14:29] LABS: STOOL FOR WBC POSITIVE (NEGATIVE)
[2019-03-07 14:36] LABS: CRYPTOSPORIDIUM PARVUM ANTIGEN NEGATIVE (NEGATIVE); GIARDIA LAMBLIA ANTIGEN NEGATIVE (NEGATIVE)
[2019-03-07] MEDS ORDERED: DULCOLAX TAB EC 5 MG PO ONE ×2 (15:00→21:00)
[2019-03-07] MEDS ORDERED: MIRALAX POWDER (255 GRAMS BTL) PO NR (15:00)
[2019-03-07] MEDS: ZyPREXA TAB 5 MG PO SCH (17:39)
[2019-03-07 17:54] LABS: HEMATOCRIT 27.9 % (36.0-47.0); HEMOGLOBIN 9.3 g/dL (12.0-16.0)
[2019-03-07] MEDS: PATIENT'S HOME MEDICATION (Melatonin [Melatonin] 5 MG) PO SCH (21:29)
[2019-03-07] MEDS: ATIVAN TAB 0.5 MG PO SCH (21:29)
[2019-03-07] MEDS: ARICEPT TAB 10 MG PO SCH (21:29)
[2019-03-07] MEDS: PROzac PO SCH (21:30)
[2019-03-07] MEDS: SINGULAIR TAB 10 MG PO SCH (21:30)
[2019-03-07] MEDS: ZOCOR TAB 20 MG PO SCH (21:30)
[2019-03-07] MEDS: PEPCID 20 MG IV PREMIX* 20 MG/50 ML BAG IV SCH (21:30)
[2019-03-07] MEDS: NAMENDA TAB 10 MG PO SCH (21:30)
[2019-03-08] MEDS: NS 1000 ML 1,000 ML IV SCH ×2 (03:04→22:09)
[2019-03-08 06:06] LABS: BASOPHILS % (AUTO) 0.4 % (0.2-1.0); EOSINOPHILS # (AUTO) 0.1 x10^3/uL (0.0-0.2); EOSINOPHILS % (AUTO) 0.7 % (0.9-2.9); HEMATOCRIT 24.7 % (36.0-47.0); HEMOGLOBIN 8.5 g/dL (12.0-16.0); LYMPHOCYTES % (AUTO) 8.9 % (21.0-51.0); MEAN CORPUSCULAR HEMOGLOBIN 32.5 pg (27.0-34.0); MEAN CORPUSCULAR HGB CONC 34.4 g/dL (33.0-35.0); MEAN CORPUSCULAR VOLUME 94.5 fL (80.0-100.0); MEAN PLATELET VOLUME 9.1 fL (7.4-11.0); MONOCYTES % (AUTO) 8.8 % (0.0-13.0); NEUTROPHILS # (AUTO) 9.2 x10^3/uL (2.2-4.8); NEUTROPHILS % (AUTO) 81.2 % (42.0-75.0); PLATELET COUNT 168 X10^3/uL (150.0-450.0); RED BLOOD COUNT 2.62 X10^6/uL (3.5-5.4); RED CELL DISTRIBUTION WIDTH 14.2 % (11.6-16.5); WHITE BLOOD COUNT 11.4 X10^3/uL (3.6-10.0)
[2019-03-08 06:29] LABS: ALANINE AMINOTRANSFERASE 20 Units/L (12-78); ALKALINE PHOSPHATASE 41 Units/L (46-116); ASPARTATE AMINO TRANSFERASE 12 Units/L (15-37); BLOOD UREA NITROGEN 8 mg/dL (7-18); CALCIUM 8.6 mg/dL (8.5-10.1); CARBON DIOXIDE 22.2 mmol/L (21-32); CHLORIDE 112 mmol/L (98-107); COR CA(FOR HYPOALB) 9.4 mg/dL (8.5-10.1); CREATININE 0.94 mg/dL (0.55-1.02); SODIUM 145 mmol/L (136-145); TOTAL PROTEIN 5.7 g/dL (6.4-8.2); eGFR NON BLACK RACES > 60 (>60)
--- NOTE | 2019-03-08 08:30 | PCM.PROG ---
Progress Note - Progress Note for Day of Date of Exam: 03/07/19 - Subjective Subjective: WAS ADMITTED FOR DIARRHEA, WEAKNESS, AND FATIGUE. STAFF REPORTS THAT SHE IS PASSING BLOOD WITH STOOL. TODAY, SHE IS ALERT, LYING IN BED ON MORNING ROUNDS. SHE CONTINUES WITH COMPLAINTS OF WEAKNESS AND DIARRHEA. ON EXAMINATION, HEART IS REGULAR IN RATE AND RHYTHM. BILATERAL LUNGS ARE NOTED WITH DIMINISHED LUNG SOUNDS THROUGHOUT. ABDOMEN IS ROUND, SOFT, AND NOTED WITH DIFFUSE TENDERNESS TO PALPATION. HER VITALS THIS MORNING ARE: 98.1-73-18-97%-124/57. LABS WERE OBTAINED. ABNORMAL LAB VALUES INCLUDE THE FOLLOWING: RBC 3.05, HGB 10.1, HCT 29.1, POTASSIUM 3.1, CHLORIDE 112, BUN 5, AST 14, ALK PHOS 44, TOTAL PROTEIN 5.6, ALBUMIN 2.9. STOOL STUDIES WERE OBTAINED AND REVEALED: POSITIVE FOR OCCULT BLOOD AND WBC. SHE IS CURRENTLY RECEIVING NORMAL SALINE AT 80ML/HR, PEPCID IV, AND PROTONIX IV. WE WILL CONSULT WITH AND MONITOR H&H. WE WILL REPLEAT HER POTASSIUM TODAY. OTHERWISE, WE PLAN TO FOLLOW UP WITH AM LABS AND CONTINUE TO MONITOR. - Past Medical Family Social History Past Med/Fam/Surg Hx: No changes since H&P Allergies: Allergies shellfish derived Allergy (Verified 12/20/17 17:25) Sulfa (Sulfonamide Antibiotics) [SULFA] Allergy (Verified 12/20/17 17:25) - Review of Systems ROS: No change since H&P - Vital Signs and I&O's Vital Signs: Temperature 98 F Pulse Rate [Left Radial] 70 Pulse Rate 73 Respiratory Rate 18 Blood Pressure [Left Arm] 104/51 Blood Pressure [Right Arm] 125/58 Blood Pressure 150/69 O2 Sat by Pulse Oximetry 97 Intake and Output: Intake & Output 03/05/19 03/06/19 03/07/19 03/08/19 11:59 11:59 11:59 11:59 Intake Total 420 / 420 3166 / 3166 3055 / 3055 3447 / 3447 Balance 420 / 420 3166 / 3166 3055 / 3055 3447 / 3447 - Physical Exam Oriented: Person Eyes: Normal Ear: Normal Nose: Normal Throat: Normal Respiratory: Generalized, Diminished Cardiovascular: Normal. negative: S3, S4, Murmur : Normal Auscultation: Bowel Sounds: Normal Palpation: Normal Tenderness: Diffuse, Mild. negative: Rebound, Guarding, Rigidity Skin: Decreased Turgur Musculoskeletal: Normal Psychiatric: Normal Mood Description: Calm Affect: Normal Speech Pattern: Clear, Appropriate - Laboratory and Diagnostics Result Diagrams: 03/08/19 05:47 03/08/19 05:47 Labs: 03/07/19 14:07 Stool - Final Laboratory WBC 11.4 X10^3/uL (3.6-10.0) H 03/08/19 05:47 RBC 2.62 X10^6/uL (3.5-5.4) L 03/08/19 05:47 Hgb 8.5 g/dL (12.0-16.0) L 03/08/19 05:47 Hct 24.7 % (36.0-47.0) L 03/08/19 05:47 MCV 94.5 fL (80.0-100.0) 03/08/19 05:47 MCH 32.5 pg (27.0-34.0) 03/08/19 05:47 MCHC 34.4 g/dL (33.0-35.0) 03/08/19 05:47 RDW 14.2 % (11.6-16.5) 03/08/19 05:47 Plt Count 168 X10^3/uL (150.0-450.0) 03/08/19 05:47 MPV 9.1 fL (7.4-11.0) 03/08/19 05:47 Neut % (Auto) 81.2 % (42.0-75.0) H 03/08/19 05:47 Lymph % (Auto) 8.9 % (21.0-51.0) L 03/08/19 05:47 [place] % (Auto) 8.8 % (0.0-13.0) 03/08/19 05:47 Eos % (Auto) 0.7 % (0.9-2.9) L 03/08/19 05:47 Baso % (Auto) 0.4 % (0.2-1.0) 03/08/19 05:47 Neut # (Auto) 9.2 x10^3/uL (2.2-4.8) H 03/08/19 05:47 Lymph # (Auto) 1.0 X10^3/uL (1.3-2.9) L 03/08/19 05:47 [place] # (Auto) 1.0 x10^3/uL (0.3-0.8) H 03/08/19 05:47 Eos # (Auto) 0.1 x10^3/uL (0.0-0.2) 03/08/19 05:47 Baso # (Auto) 0.0 X10^3/uL (0.0-0.1) 03/08/19 05:47 Absolute Nucleated RBC 0.0 /100WBC 03/08/19 05:47 Sodium 145 mmol/L (136-145) 03/08/19 05:47 Corrected Sodium TNP 03/08/19 05:47 Potassium 3.6 mmol/L (3.5-5.1) 03/08/19 05:47 Chloride 112 mmol/L (98-107) H 03/08/19 05:47 Carbon Dioxide 22.2 mmol/L (21-32) 03/08/19 05:47 BUN 8 mg/dL (7-18) 03/08/19 05:47 Creatinine 0.94 mg/dL (0.55-1.02) 03/08/19 05:47 Est GFR (MDRD) Af Amer > 60 (>60) 03/08/19 05:47 Est GFR (MDRD) Non-Af > 60 (>60) 03/08/19 05:47 Glucose 100 mg/dL (65-99) H 03/08/19 05:47 POC Glucose (mg/dL) 88 mg/dL (65-99) 03/04/19 20:51 Calcium 8.6 mg/dL (8.5-10.1) 03/08/19 05:47 Corrected Calcium 9.4 mg/dL (8.5-10.1) 03/08/19 05:47 Magnesium 2.0 mg/dL (1.7-2.9) 03/05/19 05:30 Total Bilirubin 1.00 mg/dL (0.2-1.0) 03/08/19 05:47 AST 12 Units/L (15-37) L 03/08/19 05:47 ALT 20 Units/L (12-78) 03/08/19 05:47 Alkaline Phosphatase 41 Units/L (46-116) L 03/08/19 05:47 Total Protein 5.7 g/dL (6.4-8.2) L 03/08/19 05:47 Albumin 3.0 g/dL (3.4-5.0) L 03/08/19 05:47 Globulin 2.7 g/dL (2.5-4.5) 03/08/19 05:47 Albumin/Globulin Ratio 1.1 Ratio (1.1-2.1) 03/08/19 05:47 Specimen Type Clean catch urine 03/04/19 20:28 Urine Color Yellow (YELLOW) 03/04/19 20:28 Urine Appearance Clear (CLEAR) 03/04/19 20:28 Urine pH 5.0 (5.0 - 8.0) 03/04/19 20:28 Ur Specific [place] 1.025 (1.000-1.030) 03/04/19 20:28 Urine Protein 2+ (NEGATIVE) 03/04/19 20:28 Urine Glucose (UA) Negative (NEGATIVE) 03/04/19 20:28 Urine Ketones 1+ (NEGATIVE) 03/04/19 20:28 Urine Occult Blood Negative (NEGATIVE) 03/04/19 20:28 Urine Nitrite Negative (NEGATIVE) 03/04/19 20:28 Urine Bilirubin Negative (NEGATIVE) 03/04/19 20:28 Urine Urobilinogen Normal (NORMAL) 03/04/19 20:28 Ur Leukocyte Esterase 1+ (NEGATIVE) 03/04/19 20:28 Urine RBC 0-2 /HPF (NONE SEEN) 03/04/19 20:28 Urine WBC 0-2 /HPF (NONE SEEN) 03/04/19 20:28 Ur Squamous Epith Cells Few /HPF (NEGATIVE) 03/04/19 20:28 Calcium Oxalate Crystal Moderate /HPF (NEGATIVE) 03/04/19 20:28 Urine Bacteria Trace /HPF (NEGATIVE) 03/04/19 20:28 Hyaline Casts Few /LPF (NEGATIVE) 03/04/19 20:28 Urine Mucus Moderate /HPF (NEGATIVE) 03/04/19 20:28 Ur Culture Indicated? No/not indicated 03/04/19 20:28 Stool Description 15g,bloody,unformed 03/07/19 14:07 Stl Occult Blood (IFOB) Positive (NEGATIVE) A 03/07/19 14:07 Stool for White Cells Positive (NEGATIVE) A 03/07/19 14:07 Stl C. diff Tox B Gene Negative (NEGATIVE) 03/07/19 14:07 Stl C. diff [id number] Negative (NEGATIVE) 03/07/19 14:07 Digoxin 1.15 ng/mL (0.9-2) 03/05/19 05:30 Cryptosporid parvum Ag Negative (NEGATIVE) 03/07/19 14:07 Giardia lamblia Ag Negative (NEGATIVE) 03/07/19 14:07 - Plan (1) Intractable diarrhea Status: Acute Plan: IV FLUIDS, PROBIOTICS, STOOL STUDIES, CONTINUE TO MONITOR (2) Weakness Status: Acute (3) GI bleed Status: Acute Qualifiers: GI bleed type/associated pathology: unspecified gastrointestinal hemorrhage type Qualified Code(s): K92.2 - Gastrointestinal hemorrhage, unspecified Plan: PEPCID IV, PROTONIX IV, CONSULT GI
[2019-03-08] MEDS: PROTONIX INJ 40 MG VIAL IVP SCH ×2 (08:55→22:06)
[2019-03-08] MEDS: ALBUMIN HUMAN 25%- 100 ML 100 ML IV SCH (08:56)
--- NOTE | 2019-03-08 09:03 | DR.CONSULT ---
Consult - Consultation for Day of: Date: 03/07/19 - Chief Complaint Chief Complaint: Patient referred for GI Bleed, hematochezia. Patient with complaints of diarrhea and hematochezia. - History of Present Illness History of Present Illness: Patient is a 83 yo female who was referred for GI Bleed, hematochezia. Patient with complaints of diarrhea four about 2 weeks and hematochezia. Patient denies dysphagia, dyspepsia, abdominal pain, constipation and melena. Patient states she had a colonoscopy a long time ago, denies ever having and EGD. Hemoccult positive. Hgb 10.1, Hct 29.1, BUN 5, Creatinine 0.92 - Past Medical History Past Medical History: Hypertension, Dyslipidemia, GERD, Arthritis, CHF Additional Medical History: Cataracts, Diverticulosis, Muscle Weakness, Back Pain, Skin cancer on nose - Past Surgical History Surgical History: Appendectomy, Hysterectomy, Tonsillectomy Additional Surgical History: Pacemaker placement, Breast reduction - Family History Family Medical History: Diabetes Mellitus, Cancer, [place], Heart Failure, Hypertension - Social History Type of Tobacco Use: None Does any household member use tobacco: No Alcohol Use: None Drug Use: None - Medications Home Medications: shellfish derived Allergy (Verified 12/20/17 17:25) Sulfa (Sulfonamide Antibiotics) [SULFA] Allergy (Verified 12/20/17 17:25) CONTINUE taking the following medications olanzapine 5 mg PO BID 03/04/19 [History] vancomycin [Vancocin] 250 mg PO QD-QID 03/04/19 [History] - Review of Systems Gastrointestinal: Diarrhea, Hematochezia. denies: Nausea, Vomiting, Abdominal Pain, Constipation, Melena, Other - Physical Exam Vital Signs: Temperature 98 F Pulse Rate [Left Radial] 70 Pulse Rate 73 Respiratory Rate 18 Blood Pressure [Left Arm] 104/51 Blood Pressure [Right Arm] 125/58 Blood Pressure 150/69 O2 Sat by Pulse Oximetry 97 Oriented: Normal Eyes: Normal Ear: Normal Nose: Normal Throat: Normal Respiratory: Clear Throughout Cardiovascular: Normal Auscultation: Bowel Sounds: Normal Palpation: Normal, Other (no distention). negative: Spleen Enlarged, Liver Enlarged, Mass Pulsatile Tenderness: Normal (non tender) Skin: Normal Musculoskeletal: Normal Psychiatric: Normal Mood Description: Calm, Appropriate Affect: Normal Speech Pattern: Clear, Appropriate - Plan Plan: Assessment. 1. Hematochezia, lower GI Bleed. 2. Diarrhea. Plan. 1. Colonoscopy in AM, Monitor Hgb, Transfuse as needed. 2. Stool Studies negative. Plan reviewed with Dr. Dang - Allergies Allergies/Adverse Reactions: Allergies Allergy/AdvReac Type Severity Reaction Status Date / Time shellfish derived Allergy Verified 12/20/17 17:25 Sulfa (Sulfonamide Allergy Verified 12/20/17 17:25 Antibiotics) [SULFA]
[2019-03-08] MEDS: FLONASE NASAL SPRAY ENOSTRIL SCH ×2 (09:20→22:09)
[2019-03-08] MEDS ORDERED: DIPRIVAN VIAL 20 ML ONE (10:48)
[2019-03-08 10:50] LABS: HEMATOCRIT 23.9 % (36.0-47.0)
[2019-03-08] MEDS: ASPIRIN EC 81 MG PO SCH ×2 (11:15→11:17)
[2019-03-08] MEDS: SYNTHROID 50 mcg TAB PO SCH ×2 (11:17→13:42)
[2019-03-08] MEDS: CLARITIN PO SCH ×2 (11:17→13:38)
[2019-03-08] MEDS: HEMOCYTE-PLUS PO SCH ×3 (11:18→22:07)
[2019-03-08] MEDS: WELLBUTRIN XL 150 MG (DAILY) PO SCH ×2 (11:18→13:44)
[2019-03-08] MEDS: MICRO K EXTEN CAP 10 MEQ PO SCH ×2 (11:18→13:39)
[2019-03-08] MEDS: VSL#3 PO SCH ×2 (11:18→13:45)
[2019-03-08] MEDS: MEGACE PO SCH ×3 (11:19→22:07)
[2019-03-08] MEDS: LANOXIN PO SCH ×2 (11:19→14:03)
[2019-03-08] MEDS ORDERED: STERILE WATER IRRIGATION ONE (13:39)
[2019-03-08] MEDS ORDERED: TYLENOL 325 MG TAB PO ONE (14:44)
[2019-03-08] MEDS ORDERED: NS 500 ML IV 500 ML ONE (15:17)
[2019-03-08] MEDS: ZOCOR TAB 20 MG PO SCH (22:04)
[2019-03-08] MEDS: NAMENDA TAB 10 MG PO SCH (22:05)
[2019-03-08] MEDS: ARICEPT TAB 10 MG PO SCH (22:06)
[2019-03-08] MEDS: PROzac PO SCH (22:06)
[2019-03-08] MEDS: SINGULAIR TAB 10 MG PO SCH (22:06)
[2019-03-08] MEDS: ATIVAN TAB 0.5 MG PO SCH (22:06)
[2019-03-08] MEDS: PATIENT'S HOME MEDICATION (Melatonin [Melatonin] 5 MG) PO SCH (22:07)
[2019-03-08] MEDS: PEPCID 20 MG IV PREMIX* 20 MG/50 ML BAG IV SCH (22:08)
[2019-03-08] MEDS: ZyPREXA TAB 5 MG PO SCH (22:09)
[2019-03-08 22:42] LABS: HEMATOCRIT 28.4 % (36.0-47.0); HEMOGLOBIN 9.8 g/dL (12.0-16.0)
[2019-03-09] MEDS: NS 1000 ML 1,000 ML IV SCH (04:27)
[2019-03-09 04:54] LABS: BASOPHILS % (AUTO) 0.7 % (0.2-1.0); EOSINOPHILS # (AUTO) 0.2 x10^3/uL (0.0-0.2); EOSINOPHILS % (AUTO) 2.4 % (0.9-2.9); HEMATOCRIT 29.3 % (36.0-47.0); HEMOGLOBIN 9.9 g/dL (12.0-16.0); LYMPHOCYTES % (AUTO) 14.7 % (21.0-51.0); MEAN CORPUSCULAR HEMOGLOBIN 31.5 pg (27.0-34.0); MEAN CORPUSCULAR HGB CONC 33.8 g/dL (33.0-35.0); MEAN CORPUSCULAR VOLUME 93.1 fL (80.0-100.0); MEAN PLATELET VOLUME 10.1 fL (7.4-11.0); MONOCYTES # (AUTO) 1.1 x10^3/uL (0.3-0.8); NEUTROPHILS # (AUTO) 4.4 x10^3/uL (2.2-4.8); NEUTROPHILS % (AUTO) 66.2 % (42.0-75.0); PLATELET COUNT 121 X10^3/uL (150.0-450.0); RED BLOOD COUNT 3.14 X10^6/uL (3.5-5.4); RED CELL DISTRIBUTION WIDTH 15.9 % (11.6-16.5); WHITE BLOOD COUNT 6.7 X10^3/uL (3.6-10.0)
[2019-03-09 05:02] LABS: ALANINE AMINOTRANSFERASE 17 Units/L (12-78); ALKALINE PHOSPHATASE 44 Units/L (46-116); ASPARTATE AMINO TRANSFERASE 14 Units/L (15-37); BLOOD UREA NITROGEN 4 mg/dL (7-18); CALCIUM 8.6 mg/dL (8.5-10.1); CARBON DIOXIDE 27.2 mmol/L (21-32); CHLORIDE 112 mmol/L (98-107); COR CA(FOR HYPOALB) 9.4 mg/dL (8.5-10.1); CREATININE 0.91 mg/dL (0.55-1.02); SODIUM 144 mmol/L (136-145); TOTAL PROTEIN 5.3 g/dL (6.4-8.2); eGFR NON BLACK RACES > 60 (>60)
[2019-03-09] MEDS: PROCALAMINE 3 % 1,000 ML IV SCH (06:36)
[2019-03-09] MEDS: ALBUMIN HUMAN 25%- 100 ML 100 ML IV SCH (09:54)
[2019-03-09] MEDS: VSL#3 PO SCH (09:55)
[2019-03-09] MEDS: MEGACE PO SCH ×2 (09:55→21:59)
[2019-03-09] MEDS: CLARITIN PO SCH (09:55)
[2019-03-09] MEDS: WELLBUTRIN XL 150 MG (DAILY) PO SCH (09:55)
[2019-03-09] MEDS: ASPIRIN EC 81 MG PO SCH (09:55)
[2019-03-09] MEDS: HEMOCYTE-PLUS PO SCH ×2 (09:56→21:59)
[2019-03-09] MEDS: LANOXIN PO SCH (09:56)
[2019-03-09] MEDS: MICRO K EXTEN CAP 10 MEQ PO SCH (09:56)
[2019-03-09] MEDS: FLONASE NASAL SPRAY ENOSTRIL SCH ×2 (09:57→22:01)
[2019-03-09] MEDS: PROTONIX INJ 40 MG VIAL IVP SCH ×2 (09:57→22:00)
[2019-03-09] MEDS: SYNTHROID 50 mcg TAB PO SCH (09:57)
--- NOTE | 2019-03-09 11:17 | RAD ---
Examination: Portable AP chest History: Increased respiratory rate Comparison 02/23/2019 Findings: Continued normal heart size with pacemaker. Dilated descending thoracic aorta. The lungs are clear of active disease. There is no evidence for CHF or pneumonia. Impression: Considering technical and projection differences, no interval change or acute findings. Reported By:
[2019-03-09] MEDS: LASIX IVP SCH ×2 (17:28→22:01)
[2019-03-09] MEDS: ZyPREXA TAB 5 MG PO SCH (17:28)
[2019-03-09 18:10] LABS: HEMATOCRIT 30.7 % (36.0-47.0); HEMOGLOBIN 10.4 g/dL (12.0-16.0)
[2019-03-09] MEDS: ATIVAN TAB 0.5 MG PO SCH (21:58)
[2019-03-09] MEDS: SINGULAIR TAB 10 MG PO SCH (21:59)
[2019-03-09] MEDS: ARICEPT TAB 10 MG PO SCH (21:59)
[2019-03-09] MEDS: NAMENDA TAB 10 MG PO SCH (21:59)
[2019-03-09] MEDS: PEPCID 20 MG IV PREMIX* 20 MG/50 ML BAG IV SCH (22:00)
[2019-03-09] MEDS: PROzac PO SCH (22:00)
[2019-03-09] MEDS: ZOCOR TAB 20 MG PO SCH (22:00)
[2019-03-09] MEDS: PATIENT'S HOME MEDICATION (Melatonin [Melatonin] 5 MG) PO SCH (23:16)
[2019-03-10 05:28] LABS: BASOPHILS # (AUTO) 0.1 X10^3/uL (0.0-0.1); BASOPHILS % (AUTO) 0.6 % (0.2-1.0); EOSINOPHILS # (AUTO) 0.2 x10^3/uL (0.0-0.2); EOSINOPHILS % (AUTO) 2.4 % (0.9-2.9); HEMATOCRIT 31.7 % (36.0-47.0); LYMPHOCYTES # (AUTO) 1.1 X10^3/uL (1.3-2.9); LYMPHOCYTES % (AUTO) 11.4 % (21.0-51.0); MEAN CORPUSCULAR HEMOGLOBIN 31.7 pg (27.0-34.0); MEAN CORPUSCULAR HGB CONC 34.7 g/dL (33.0-35.0); MEAN CORPUSCULAR VOLUME 91.3 fL (80.0-100.0); MEAN PLATELET VOLUME 10.4 fL (7.4-11.0); MONOCYTES # (AUTO) 1.2 x10^3/uL (0.3-0.8); MONOCYTES % (AUTO) 13.4 % (0.0-13.0); NEUTROPHILS # (AUTO) 6.7 x10^3/uL (2.2-4.8); NEUTROPHILS % (AUTO) 72.2 % (42.0-75.0); PLATELET COUNT 139 X10^3/uL (150.0-450.0); RED BLOOD COUNT 3.47 X10^6/uL (3.5-5.4); RED CELL DISTRIBUTION WIDTH 15.4 % (11.6-16.5); WHITE BLOOD COUNT 9.2 X10^3/uL (3.6-10.0)
[2019-03-10 05:40] LABS: ALANINE AMINOTRANSFERASE 23 Units/L (12-78); ALBUMIN 3.6 g/dL (3.4-5.0); ALKALINE PHOSPHATASE 59 Units/L (46-116); ASPARTATE AMINO TRANSFERASE 19 Units/L (15-37); BLOOD UREA NITROGEN 4 mg/dL (7-18); CALCIUM 9.4 mg/dL (8.5-10.1); CARBON DIOXIDE 27.5 mmol/L (21-32); CHLORIDE 105 mmol/L (98-107); CREATININE 0.99 mg/dL (0.55-1.02); SODIUM 142 mmol/L (136-145); TOTAL PROTEIN 6.4 g/dL (6.4-8.2); eGFR NON BLACK RACES 57 (>60)
[2019-03-10] MEDS: KLOR-CON PO PRN (06:24)
[2019-03-10] MEDS: ALBUMIN HUMAN 25%- 100 ML 100 ML IV SCH (09:52)
[2019-03-10] MEDS: ASPIRIN EC 81 MG PO SCH (09:53)
[2019-03-10] MEDS: WELLBUTRIN XL 150 MG (DAILY) PO SCH (09:53)
[2019-03-10] MEDS: LANOXIN PO SCH (09:53)
[2019-03-10] MEDS: MICRO K EXTEN CAP 10 MEQ PO SCH (09:53)
[2019-03-10] MEDS: MEGACE PO SCH ×2 (09:53→20:40)
[2019-03-10] MEDS: VSL#3 PO SCH (09:53)
[2019-03-10] MEDS: SYNTHROID 50 mcg TAB PO SCH (09:53)
[2019-03-10] MEDS: HEMOCYTE-PLUS PO SCH ×2 (09:53→20:41)
[2019-03-10] MEDS: FLONASE NASAL SPRAY ENOSTRIL SCH ×2 (09:54→20:47)
[2019-03-10] MEDS: CLARITIN PO SCH (09:54)
[2019-03-10] MEDS: PROTONIX INJ 40 MG VIAL IVP SCH ×2 (09:59→20:47)
[2019-03-10] MEDS: ZyPREXA TAB 5 MG PO SCH (17:43)
[2019-03-10] MEDS: PROCALAMINE 3 % 1,000 ML IV SCH (17:43)
[2019-03-10 18:11] LABS: HEMOGLOBIN 10.4 g/dL (12.0-16.0)
[2019-03-10] MEDS: ATIVAN TAB 0.5 MG PO SCH (20:41)
[2019-03-10] MEDS: NAMENDA TAB 10 MG PO SCH (20:41)
[2019-03-10] MEDS: SINGULAIR TAB 10 MG PO SCH (20:42)
[2019-03-10] MEDS: ARICEPT TAB 10 MG PO SCH (20:42)
[2019-03-10] MEDS: PROzac PO SCH (20:42)
[2019-03-10] MEDS: PEPCID 20 MG IV PREMIX* 20 MG/50 ML BAG IV SCH (20:43)
[2019-03-10] MEDS: ZOCOR TAB 20 MG PO SCH (20:47)
--- NOTE | 2019-03-10 22:44 | PCM.PROG ---
Progress Note - Progress Note for Day of Date of Exam: 03/08/19 - Subjective Subjective: WAS ADMITTED FOR DIARRHEA, WEAKNESS, AND FATIGUE. STAFF REPORTS THAT SHE IS PASSING BLOOD WITH STOOL. TODAY, SHE IS ALERT, LYING IN BED ON MORNING ROUNDS. SHE CONTINUES WITH COMPLAINTS OF WEAKNESS AND DIARRHEA. ON EXAMINATION, HEART IS REGULAR IN RATE AND RHYTHM. BILATERAL LUNGS ARE NOTED WITH DIMINISHED LUNG SOUNDS THROUGHOUT. ABDOMEN IS ROUND, SOFT, AND NOTED WITH DIFFUSE TENDERNESS TO PALPATION. HER VITALS THIS MORNING ARE: 99.3-80-18-97%-127/60. LABS WERE OBTAINED. ABNORMAL LAB VALUES INCLUDE THE FOLLOWING: WBC 11.4. STOOL STUDIES WERE OBTAINED AND REVEALED: POSITIVE FOR OCCULT BLOOD AND WBC. SHE IS CURRENTLY RECEIVING NORMAL SALINE AT 80ML/HR, PEPCID IV, AND PROTONIX IV. PLANS FOR A COLONOSCOPY TODAY. WE ARE IN AGREEMENT WITH PLAN. WE, WE PLAN TO FOLLOW UP WITH AM LABS AND CONTINUE TO MONITOR. - Past Medical Family Social History Past Med/Fam/Surg Hx: No changes since H&P Allergies: Allergies shellfish derived Allergy (Verified 12/20/17 17:25) Sulfa (Sulfonamide Antibiotics) [SULFA] Allergy (Verified 12/20/17 17:25) - Review of Systems ROS: No change since H&P - Vital Signs and I&O's Vital Signs: Temperature 98.5 F Pulse Rate [Left Radial] 71 Pulse Rate 75 Respiratory Rate 20 Blood Pressure [Left Arm] 118/72 Blood Pressure [Right Arm] 125/58 Blood Pressure 120/57 O2 Sat by Pulse Oximetry 99 Intake and Output: Intake & Output 03/08/19 03/09/19 03/10/19 03/11/19 11:59 11:59 11:59 11:59 Intake Total 3447 / 3447 2938 / 2938 1090 / 1090 600 / 600 Output Total 0 / 0 Balance 3447 / 3447 2938 / 2938 1090 / 1090 600 / 600 - Physical Exam Oriented: Normal Eyes: Normal Ear: Normal Nose: Normal Throat: Normal Respiratory: Generalized, Diminished Cardiovascular: Normal : Normal Auscultation: Bowel Sounds: Normal Palpation: Normal Tenderness: Normal (non tender) Skin: Normal Musculoskeletal: Normal Psychiatric: Normal Mood Description: Calm, Appropriate Affect: Normal Speech Pattern: Clear, Appropriate - Laboratory and Diagnostics Result Diagrams: 03/10/19 18:03 03/10/19 08:16 Labs: 03/07/19 14:07 Stool Stool Culture - Final 03/07/19 14:07 Stool - Final Laboratory WBC 9.2 X10^3/uL (3.6-10.0) 03/10/19 04:15 RBC 3.47 X10^6/uL (3.5-5.4) L 03/10/19 04:15 Hgb 10.4 g/dL (12.0-16.0) L 03/10/19 18:03 Hct 30.0 % (36.0-47.0) L 03/10/19 18:03 MCV 91.3 fL (80.0-100.0) 03/10/19 04:15 MCH 31.7 pg (27.0-34.0) 03/10/19 04:15 MCHC 34.7 g/dL (33.0-35.0) 03/10/19 04:15 RDW 15.4 % (11.6-16.5) 03/10/19 04:15 Plt Count 139 X10^3/uL (150.0-450.0) L 03/10/19 04:15 MPV 10.4 fL (7.4-11.0) 03/10/19 04:15 Neut % (Auto) 72.2 % (42.0-75.0) 03/10/19 04:15 Lymph % (Auto) 11.4 % (21.0-51.0) L 03/10/19 04:15 [place] % (Auto) 13.4 % (0.0-13.0) H 03/10/19 04:15 Eos % (Auto) 2.4 % (0.9-2.9) 03/10/19 04:15 Baso % (Auto) 0.6 % (0.2-1.0) 03/10/19 04:15 Neut # (Auto) 6.7 x10^3/uL (2.2-4.8) H 03/10/19 04:15 Lymph # (Auto) 1.1 X10^3/uL (1.3-2.9) L 03/10/19 04:15 [place] # (Auto) 1.2 x10^3/uL (0.3-0.8) H 03/10/19 04:15 Eos # (Auto) 0.2 x10^3/uL (0.0-0.2) 03/10/19 04:15 Baso # (Auto) 0.1 X10^3/uL (0.0-0.1) 03/10/19 04:15 Absolute Nucleated RBC 0.0 /100WBC 03/10/19 04:15 Sodium 142 mmol/L (136-145) 03/10/19 04:15 Corrected Sodium TNP 03/10/19 04:15 Potassium 4.3 mmol/L (3.5-5.1) 03/10/19 08:16 Chloride 105 mmol/L (98-107) 03/10/19 04:15 Carbon Dioxide 27.5 mmol/L (21-32) 03/10/19 04:15 BUN 4 mg/dL (7-18) L 03/10/19 04:15 Creatinine 0.99 mg/dL (0.55-1.02) 03/10/19 04:15 Est GFR (MDRD) Af Amer > 60 (>60) 03/10/19 04:15 Est GFR (MDRD) Non-Af 57 (>60) L 03/10/19 04:15 Glucose 92 mg/dL (65-99) 03/10/19 04:15 POC Glucose (mg/dL) 88 mg/dL (65-99) 03/04/19 20:51 Calcium 9.4 mg/dL (8.5-10.1) 03/10/19 04:15 Corrected Calcium TNP 03/10/19 04:15 Magnesium 1.9 mg/dL (1.7-2.9) 03/10/19 04:16 Total Bilirubin 2.10 mg/dL (0.2-1.0) H 03/10/19 04:15 AST 19 Units/L (15-37) 03/10/19 04:15 ALT 23 Units/L (12-78) 03/10/19 04:15 Alkaline Phosphatase 59 Units/L (46-116) 03/10/19 04:15 Total Protein 6.4 g/dL (6.4-8.2) 03/10/19 04:15 Albumin 3.6 g/dL (3.4-5.0) 03/10/19 04:15 Globulin 2.8 g/dL (2.5-4.5) 03/10/19 04:15 Albumin/Globulin Ratio 1.3 Ratio (1.1-2.1) 03/10/19 04:15 Specimen Type Clean catch urine 03/04/19 20:28 Urine Color Yellow (YELLOW) 03/04/19 20:28 Urine Appearance Clear (CLEAR) 03/04/19 20:28 Urine pH 5.0 (5.0 - 8.0) 03/04/19 20:28 Ur Specific [place] 1.025 (1.000-1.030) 03/04/19 20:28 Urine Protein 2+ (NEGATIVE) 03/04/19 20:28 Urine Glucose (UA) Negative (NEGATIVE) 03/04/19 20:28 Urine Ketones 1+ (NEGATIVE) 03/04/19 20:28 Urine Occult Blood Negative (NEGATIVE) 03/04/19 20:28 Urine Nitrite Negative (NEGATIVE) 03/04/19 20:28 Urine Bilirubin Negative (NEGATIVE) 03/04/19 20:28 Urine Urobilinogen Normal (NORMAL) 03/04/19 20:28 Ur Leukocyte Esterase 1+ (NEGATIVE) 03/04/19 20:28 Urine RBC 0-2 /HPF (NONE SEEN) 03/04/19 20:28 Urine WBC 0-2 /HPF (NONE SEEN) 03/04/19 20:28 Ur Squamous Epith Cells Few /HPF (NEGATIVE) 03/04/19 20:28 Calcium Oxalate Crystal Moderate /HPF (NEGATIVE) 03/04/19 20:28 Urine Bacteria Trace /HPF (NEGATIVE) 03/04/19 20:28 Hyaline Casts Few /LPF (NEGATIVE) 03/04/19 20:28 Urine Mucus Moderate /HPF (NEGATIVE) 03/04/19 20:28 Ur Culture Indicated? No/not indicated 03/04/19 20:28 Stool Description 15g,bloody,unformed 03/07/19 14:07 Stl Occult Blood (IFOB) Positive (NEGATIVE) A 03/07/19 14:07 Stool for White Cells Positive (NEGATIVE) A 03/07/19 14:07 Stl C. diff Tox B Gene Negative (NEGATIVE) 03/07/19 14:07 Stl C. diff [id number] Negative (NEGATIVE) 03/07/19 14:07 Digoxin 1.15 ng/mL (0.9-2) 03/05/19 05:30 Cryptosporid parvum Ag Negative (NEGATIVE) 03/07/19 14:07 Giardia lamblia Ag Negative (NEGATIVE) 03/07/19 14:07 Blood Type A POSITIVE 03/08/19 10:42 Antibody Screen Negative 03/08/19 10:42 Crossmatch See Detail 03/08/19 10:42 - Plan (1) Intractable diarrhea Status: Acute Plan: IV FLUIDS, PROBIOTICS, STOOL STUDIES, CONTINUE TO MONITOR (2) Weakness Status: Acute (3) GI bleed Status: Acute Qualifiers: GI bleed type/associated pathology: unspecified gastrointestinal hemorrhage type Qualified Code(s): K92.2 - Gastrointestinal hemorrhage, unspecified Plan: PEPCID IV, PROTONIX IV, COLONOSCOPY TODAY
[2019-03-11 05:31] LABS: BASOPHILS % (AUTO) 0.6 % (0.2-1.0); EOSINOPHILS # (AUTO) 0.2 x10^3/uL (0.0-0.2); EOSINOPHILS % (AUTO) 2.6 % (0.9-2.9); HEMOGLOBIN 10.4 g/dL (12.0-16.0); LYMPHOCYTES # (AUTO) 1.2 X10^3/uL (1.3-2.9); MEAN CORPUSCULAR HGB CONC 34.8 g/dL (33.0-35.0); MEAN CORPUSCULAR VOLUME 91.9 fL (80.0-100.0); MEAN PLATELET VOLUME 10.5 fL (7.4-11.0); MONOCYTES # (AUTO) 1.1 x10^3/uL (0.3-0.8); MONOCYTES % (AUTO) 14.5 % (0.0-13.0); NEUTROPHILS # (AUTO) 4.9 x10^3/uL (2.2-4.8); NEUTROPHILS % (AUTO) 66.3 % (42.0-75.0); PLATELET COUNT 132 X10^3/uL (150.0-450.0); RED BLOOD COUNT 3.27 X10^6/uL (3.5-5.4); RED CELL DISTRIBUTION WIDTH 15.2 % (11.6-16.5); WHITE BLOOD COUNT 7.3 X10^3/uL (3.6-10.0)
[2019-03-11 05:40] LABS: ALANINE AMINOTRANSFERASE 30 Units/L (12-78); ALBUMIN 3.5 g/dL (3.4-5.0); ALKALINE PHOSPHATASE 54 Units/L (46-116); ASPARTATE AMINO TRANSFERASE 38 Units/L (15-37); BLOOD UREA NITROGEN 4 mg/dL (7-18); CALCIUM 9.9 mg/dL (8.5-10.1); CARBON DIOXIDE 24.5 mmol/L (21-32); CHLORIDE 106 mmol/L (98-107); SODIUM 141 mmol/L (136-145); TOTAL PROTEIN 6.1 g/dL (6.4-8.2); eGFR NON BLACK RACES 56 (>60)
[2019-03-11] MEDS: ALBUMIN HUMAN 25%- 100 ML 100 ML IV SCH (09:53)
[2019-03-11] MEDS: HEMOCYTE-PLUS PO SCH (09:53)
[2019-03-11] MEDS: SYNTHROID 50 mcg TAB PO SCH (09:55)
[2019-03-11] MEDS: WELLBUTRIN XL 150 MG (DAILY) PO SCH (09:55)
[2019-03-11] MEDS: VSL#3 PO SCH (09:55)
[2019-03-11] MEDS: ASPIRIN EC 81 MG PO SCH (09:55)
[2019-03-11] MEDS: MEGACE PO SCH (09:55)
[2019-03-11] MEDS: LANOXIN PO SCH (09:56)
[2019-03-11] MEDS: MICRO K EXTEN CAP 10 MEQ PO SCH (09:56)
[2019-03-11] MEDS: CLARITIN PO SCH (09:56)
[2019-03-11] MEDS: FLONASE NASAL SPRAY ENOSTRIL SCH (09:57)
[2019-03-11] MEDS: PROTONIX INJ 40 MG VIAL IVP SCH (10:16)
[2019-03-11 14:18] VITALS: BP 149/54
--- NOTE | 2019-03-15 08:13 | PCM.PROG ---
Progress Note - Progress Note for Day of Date of Exam: 03/09/19 - Past Medical Family Social History Past Med/Fam/Surg Hx: No changes since H&P Allergies: Allergies shellfish derived Allergy (Verified 12/20/17 17:25) Sulfa (Sulfonamide Antibiotics) [SULFA] Allergy (Verified 12/20/17 17:25) - Review of Systems ROS: No change since H&P - Vital Signs and I&O's Vital Signs: Temperature 99.0 F Pulse Rate [Left Radial] 71 Pulse Rate 69 Respiratory Rate 20 Blood Pressure [Left Arm] 118/72 Blood Pressure [Right Arm] 149/54 Blood Pressure 120/57 O2 Sat by Pulse Oximetry 99 - Physical Exam Oriented: Normal Eyes: Normal Ear: Normal Nose: Normal Throat: Normal Respiratory: Generalized, Diminished Cardiovascular: Normal : Normal Auscultation: Bowel Sounds: Normal Tenderness: Normal (non tender) Skin: Normal Musculoskeletal: Normal Psychiatric: Normal Mood Description: Calm, Appropriate Affect: Normal Speech Pattern: Clear, Appropriate - Laboratory and Diagnostics Result Diagrams: 03/11/19 04:10 03/11/19 08:15 Labs: 03/07/19 14:07 Stool Stool Culture - Final 03/07/19 14:07 Stool - Final Laboratory WBC 7.3 X10^3/uL (3.6-10.0) 03/11/19 04:10 RBC 3.27 X10^6/uL (3.5-5.4) L 03/11/19 04:10 Hgb 10.4 g/dL (12.0-16.0) L 03/11/19 04:10 Hct 30.0 % (36.0-47.0) L 03/11/19 04:10 MCV 91.9 fL (80.0-100.0) 03/11/19 04:10 MCH 32.0 pg (27.0-34.0) 03/11/19 04:10 MCHC 34.8 g/dL (33.0-35.0) 03/11/19 04:10 RDW 15.2 % (11.6-16.5) 03/11/19 04:10 Plt Count 132 X10^3/uL (150.0-450.0) L 03/11/19 04:10 MPV 10.5 fL (7.4-11.0) 03/11/19 04:10 Neut % (Auto) 66.3 % (42.0-75.0) 03/11/19 04:10 Lymph % (Auto) 16.0 % (21.0-51.0) L 03/11/19 04:10 [place] % (Auto) 14.5 % (0.0-13.0) H 03/11/19 04:10 Eos % (Auto) 2.6 % (0.9-2.9) 03/11/19 04:10 Baso % (Auto) 0.6 % (0.2-1.0) 03/11/19 04:10 Neut # (Auto) 4.9 x10^3/uL (2.2-4.8) H 03/11/19 04:10 Lymph # (Auto) 1.2 X10^3/uL (1.3-2.9) L 03/11/19 04:10 [place] # (Auto) 1.1 x10^3/uL (0.3-0.8) H 03/11/19 04:10 Eos # (Auto) 0.2 x10^3/uL (0.0-0.2) 03/11/19 04:10 Baso # (Auto) 0.0 X10^3/uL (0.0-0.1) 03/11/19 04:10 Absolute Nucleated RBC 0.1 /100WBC 03/11/19 04:10 Sodium 141 mmol/L (136-145) 03/11/19 04:10 Corrected Sodium TNP 03/11/19 04:10 Potassium 4.3 mmol/L (3.5-5.1) 03/11/19 08:15 Chloride 106 mmol/L (98-107) 03/11/19 04:10 Carbon Dioxide 24.5 mmol/L (21-32) 03/11/19 04:10 BUN 4 mg/dL (7-18) L 03/11/19 04:10 Creatinine 1.00 mg/dL (0.55-1.02) 03/11/19 04:10 Est GFR (MDRD) Af Amer > 60 (>60) 03/11/19 04:10 Est GFR (MDRD) Non-Af 56 (>60) L 03/11/19 04:10 Glucose 92 mg/dL (65-99) 03/11/19 04:10 POC Glucose (mg/dL) 88 mg/dL (65-99) 03/04/19 20:51 Calcium 9.9 mg/dL (8.5-10.1) 03/11/19 04:10 Corrected Calcium TNP 03/11/19 04:10 Magnesium 1.9 mg/dL (1.7-2.9) 03/10/19 04:16 Total Bilirubin 1.60 mg/dL (0.2-1.0) H 03/11/19 04:10 AST 38 Units/L (15-37) H 03/11/19 04:10 ALT 30 Units/L (12-78) 03/11/19 04:10 Alkaline Phosphatase 54 Units/L (46-116) 03/11/19 04:10 Total Protein 6.1 g/dL (6.4-8.2) L 03/11/19 04:10 Albumin 3.5 g/dL (3.4-5.0) 03/11/19 04:10 Globulin 2.6 g/dL (2.5-4.5) 03/11/19 04:10 Albumin/Globulin Ratio 1.3 Ratio (1.1-2.1) 03/11/19 04:10 Specimen Type Clean catch urine 03/04/19 20:28 Urine Color Yellow (YELLOW) 03/04/19 20:28 Urine Appearance Clear (CLEAR) 03/04/19 20:28 Urine pH 5.0 (5.0 - 8.0) 03/04/19 20:28 Ur Specific [place] 1.025 (1.000-1.030) 03/04/19 20:28 Urine Protein 2+ (NEGATIVE) 03/04/19 20:28 Urine Glucose (UA) Negative (NEGATIVE) 03/04/19 20:28 Urine Ketones 1+ (NEGATIVE) 03/04/19 20:28 Urine Occult Blood Negative (NEGATIVE) 03/04/19 20:28 Urine Nitrite Negative (NEGATIVE) 03/04/19 20:28 Urine Bilirubin Negative (NEGATIVE) 03/04/19 20:28 Urine Urobilinogen Normal (NORMAL) 03/04/19 20:28 Ur Leukocyte Esterase 1+ (NEGATIVE) 03/04/19 20:28 Urine RBC 0-2 /HPF (NONE SEEN) 03/04/19 20:28 Urine WBC 0-2 /HPF (NONE SEEN) 03/04/19 20:28 Ur Squamous Epith Cells Few /HPF (NEGATIVE) 03/04/19 20:28 Calcium Oxalate Crystal Moderate /HPF (NEGATIVE) 03/04/19 20:28 Urine Bacteria Trace /HPF (NEGATIVE) 03/04/19 20:28 Hyaline Casts Few /LPF (NEGATIVE) 03/04/19 20:28 Urine Mucus Moderate /HPF (NEGATIVE) 03/04/19 20:28 Ur Culture Indicated? No/not indicated 03/04/19 20:28 Stool Description 15g,bloody,unformed 03/07/19 14:07 Stl Occult Blood (IFOB) Positive (NEGATIVE) A 03/07/19 14:07 Stool for White Cells Positive (NEGATIVE) A 03/07/19 14:07 Stl C. diff Tox B Gene Negative (NEGATIVE) 03/07/19 14:07 Stl C. diff [id number] Negative (NEGATIVE) 03/07/19 14:07 Digoxin 1.15 ng/mL (0.9-2) 03/05/19 05:30 Cryptosporid parvum Ag Negative (NEGATIVE) 03/07/19 14:07 Giardia lamblia Ag Negative (NEGATIVE) 03/07/19 14:07 Blood Type A POSITIVE 03/08/19 10:42 Antibody Screen Negative 03/08/19 10:42 Crossmatch See Detail 03/08/19 10:42 - Plan (1) GI bleed Status: Inactive Qualifiers: GI bleed type/associated pathology: gastritis Gastritis type: acute gastritis Qualified Code(s): K29.01 - Acute gastritis with bleeding Plan: PEPCID IV, PROTONIX IV, COLONOSCOPY TODAY (2) Intractable diarrhea Status: Acute Plan: IV FLUIDS, PROBIOTICS, STOOL STUDIES, CONTINUE TO MONITOR (3) Weakness Status: Inactive
== END 2019-03-11 14:30 | DRG 379 ==
LOC: MED/SURG 19:21
PROVIDERS: ADMIT Internal Medicine; ATTEND Internal Medicine
DX: K64.0 First degree hemorrhoids; Z79.01 Long term (current) use of anticoagulants; K29.01 Acute gastritis with bleeding; K57.30 Diverticulosis of large intestine without perforation or abscess without bleeding; S40.872A Other superficial bite of left upper arm, initial encounter; M13.89 Other specified arthritis, multiple sites; Q45.8 Other specified congenital malformations of digestive system; K44.9 Diaphragmatic hernia without obstruction or gangrene; E78.2 Mixed hyperlipidemia; R94.31 Abnormal electrocardiogram [ECG] [EKG]; I11.0 Hypertensive heart disease with heart failure; W54.0XXA Bitten by dog, initial encounter; R53.1 Weakness; Y92.89 Other specified places as the place of occurrence of the external cause; K21.9 Gastro-esophageal reflux disease without esophagitis; R06.02 Shortness of breath; I50.9 Heart failure, unspecified
CPT/HCPCS: 36415; 36430; 71010; 71045; 80053; 80162; 81001; 82270; 83630; 83735; 84132; 85014; 85018; 85025; 86850; 86900; 86901; 86922; 87045; 87328; 87329; 87427; 87449; 87493; 87899; 93005; 94760; 99100; A4216; A4217; A4222; B5200; C9113; P9016; P9047; S0028; S0106; S0179; J1940; J2704; J3490; J7030; J7040

== ENCOUNTER 2023-12-01 12:21 | Inpatient (IN) ==
--- NOTE | 2023-12-01 12:36 | DR.AMS ---
HPI Time Seen Time Seen by Provider: 12/01/23 12:34 Complaint Cheif Complaint Doctors Comments: According to report from [facility] the patient had a change in her mental status and she is complaining of left hip pain. The symptoms have became more progressive over the last week. Patient was given medication for sleep last p.m. PMH PMH Past Medical History: Arthritis, CHF, Dyslipidemia, GERD and Hypertension Past Surgical History: Yes Surgical History: Appendectomy, Hysterectomy and Tonsillectomy Family History Family Medical History: Diabetes Mellitus, Cancer, [place], Heart Failure and Hypertension Social History Do you use any recreational Drugs:: No ROS Review of Systems Constitutional: Malaise, Weakness and Other (change in mental status) Eyes: No Symptoms Reported ENTM: No Symptoms Reported Respiratoy: No Symptoms Reported Cardiovascular: No Symptoms Reported Gastrointestinal/Abdominal: No Symptoms Reported Genitourinary: No Symptoms Reported Neurological: Weakness Musculoskeletal: Left and Hip (pain) Integumentary: No Symptoms Reported Hematologic/Lymphatic: No Symptoms Reported Endocrine: No Symptoms Reported Psychiatric: No Symptoms Reported PE Vitals Vital Signs: Pulse Resp BP Pulse Ox O2 Del Method 12/01/23 17:31 97 H 25 H 97 12/01/23 17:30 161/73 12/01/23 17:30 161/73 12/01/23 17:27 93 H 25 H 99 12/01/23 17:15 77 19 98 12/01/23 17:00 163/74 12/01/23 17:00 91 H 24 98 12/01/23 16:45 75 24 98 12/01/23 16:34 96 H 24 99 12/01/23 16:34 175/79 12/01/23 16:30 89 26 H 12/01/23 16:15 77 20 90 L 12/01/23 16:01 69 23 97 12/01/23 16:01 151/67 12/01/23 16:00 66 20 98 12/01/23 15:45 94 H 26 H 99 12/01/23 15:32 65 20 98 12/01/23 15:30 145/67 12/01/23 15:29 69 20 98 12/01/23 15:15 78 20 97 12/01/23 15:00 72 20 100 12/01/23 15:00 152/72 12/01/23 14:45 96 H 27 H 70 L 12/01/23 14:30 88 19 97 12/01/23 14:30 146/69 12/01/23 14:15 83 20 98 12/01/23 14:00 91 H 23 95 12/01/23 14:00 173/77 12/01/23 13:45 93 H 26 H 98 12/01/23 13:45 178/79 12/01/23 13:36 89 38 H 98 12/01/23 13:36 212/90 12/01/23 13:30 96 H 38 H 98 12/01/23 13:15 95 H 44 H 98 12/01/23 13:00 96 H 30 H 95 12/01/23 13:00 185/98 12/01/23 12:49 95 H 26 H 94 L 12/01/23 12:29 Room Air General Limitations: Physical Limitation (cannot ambulate at present) General Appearance: Lethargic and In Distress (mild distress) Head Head Exam: Normal Inspection, Atraumatic and Normocephalic Eyes Eye exam: Normal Appearance, PERRL and EOMI Pupils: Regular, Round: Bilateral ENT ENT Exam: Normal Exam External Ear Exam: Normal External Inspection TM/Canal Exam: Bilateral: Normal Nose Exam: Normal Nose Exam Mouth Exam: Normal Inspection Throat Exam: Normal Inspection Neck Neck Exam: Normal Inspection, Full ROM and Trachea Midline Chest Chest Inspection: Normal Inspection and Symmetric Chest Wall Rise Respiratory Respiratory Exam: Normal Lung Sounds Bilat Respiratory Exam: Bilateral: Clear to Auscultation Cardiovascular Cardiovascular Exam: Regular Rate Abdominal Exam Abdominal Exam: Normal Inspection and Normal Bowel Sounds Extremities Extremities Exam: Normal Inspection Back Back Exam: Normal Inspection Neurological Neurological Exam: Alert Patient Oriented To: Person and Place Speech: Fluid Speech MDM Differential Diagnosis Metabolic: Dehydration, Hypernatremia and Hyponatremia Structural: CVA Toxicologic: Medication Toxicity Infectious: UTI COURSE Treatment Treatment: This patient with Stable during ER visit. Did have to be given total of 1 mg of Ativan for irritability. Patient had a CT scan done of her brain was negative for intracranial abnormality. The patient also had a urine analysis that showed she did have 5+ blood, 3+ leukocyte Estrace and WBCs too numerous to count. This patient also had a potassium level of 3.1. On the complete blood count her WBCs was 21. Patient had lactic acid level done that was within normal limits she had blood cultures that was sent this patient also had an EKG that shows atrial fibrillation but she has a history of atrial fibrillation there is no history of her being on any type of anticoagulation. For the atrial fibrillation. This patient will be given a K rider x 2 for the potassium of 3.1 we will see the patient to be admitted for further treatment of urinary tract infection with elevated WBCs and her recent change in mental status. Patient was discussed with Dr. Alanis at 1730 and he said he will except the patient for admission. Utilization review stated that the patient could be admitted as a full admit. [facility] Labs Reviewed Laboratory Results Reviewed?: Yes 12/01/23 13:08 12/01/23 13:08 Laboratory: WBC 21.0 X10^3/uL (3.6-10.0) H 12/01/23 13:08 RBC 3.57 X10^6/uL (3.5-5.4) 12/01/23 13:08 Hgb 11.1 g/dL (12.0-16.0) L 12/01/23 13:08 Hct 33.1 % (36.0-47.0) L 12/01/23 13:08 MCV 92.8 fL (80.0-100.0) 12/01/23 13:08 MCH 31.1 pg (27.0-34.0) 12/01/23 13:08 MCHC 33.6 g/dL (33.0-35.0) 12/01/23 13:08 RDW 12.9 % (11.6-16.5) 12/01/23 13:08 Plt Count 161 X10^3/uL (150.0-450.0) 12/01/23 13:08 MPV 10.1 fL (7.4-11.0) 12/01/23 13:08 Neut % (Auto) 80.0 % (42.0-75.0) H 12/01/23 13:08 Lymph % (Auto) 9.2 % (21.0-51.0) L 12/01/23 13:08 [place] % (Auto) 9.9 % (0.0-13.0) 12/01/23 13:08 Eos % (Auto) 0.3 % (0.9-2.9) L 12/01/23 13:08 Baso % (Auto) 0.6 % (0.2-1.0) 12/01/23 13:08 Neut # (Auto) 16.8 x10^3/uL (2.2-4.8) H 12/01/23 13:08 Lymph # (Auto) 1.9 X10^3/uL (1.3-2.9) 12/01/23 13:08 [place] # (Auto) 2.1 x10^3/uL (0.3-0.8) H 12/01/23 13:08 Eos # (Auto) 0.1 x10^3/uL (0.0-0.2) 12/01/23 13:08 Baso # (Auto) 0.1 X10^3/uL (0.0-0.1) 12/01/23 13:08 Absolute Nucleated RBC 0.0 /100WBC 12/01/23 13:08 PT 13.1 SECONDS (11.8-14.3) 12/01/23 13:08 INR Target Range - 12/01/23 13:08 INR 1.01 (0.8-1.3) 12/01/23 13:08 APTT 27.7 SECONDS (22.9-36.5) 12/01/23 13:08 PTT Comment - 12/01/23 13:08 Sodium 143 mmol/L (136-145) 12/01/23 13:08 Corrected Sodium 143 mmol/L (136-145) 12/01/23 13:08 Potassium 3.1 mmol/L (3.5-5.1) L 12/01/23 13:08 Chloride 107 mmol/L (98-107) 12/01/23 13:08 Carbon Dioxide 18.3 mmol/L (21-32) L 12/01/23 13:08 BUN 39 mg/dL (7-18) H 12/01/23 13:08 Creatinine 1.95 mg/dL (0.55-1.02) H 12/01/23 13:08 Est GFR (MDRD) Af Amer 31 (>60) L 12/01/23 13:08 Est GFR (MDRD) Non-Af 26 (>60) L 12/01/23 13:08 Glucose 115 mg/dL (65-99) H 12/01/23 13:08 Lactic Acid 0.9 mmol/L (0.4-2.0) 12/01/23 16:18 Calcium 9.1 mg/dL (8.5-10.1) 12/01/23 13:08 Corrected Calcium 9.7 mg/dL (8.5-10.1) 12/01/23 13:08 Total Bilirubin 1.60 mg/dL (0.2-1.0) H 12/01/23 13:08 AST 194 Units/L (15-37) H 12/01/23 13:08 ALT 60 Units/L (12-78) 12/01/23 13:08 Alkaline Phosphatase 57 Units/L (46-116) 12/01/23 13:08 Total Protein 6.9 g/dL (6.4-8.2) 12/01/23 13:08 Albumin 3.3 g/dL (3.4-5.0) L 12/01/23 13:08 Globulin 3.6 g/dL (2.5-4.5) 12/01/23 13:08 Albumin/Globulin Ratio 0.9 Ratio (1.1-2.1) L 12/01/23 13:08 Specimen Type Catherized urine 12/01/23 13:00 Urine Color Yellow (YELLOW) 12/01/23 13:00 Urine Appearance Cloudy (CLEAR) 12/01/23 13:00 Urine pH 5.0 (5.0 - 8.0) 12/01/23 13:00 Ur Specific [place] 1.025 (1.000-1.030) 12/01/23 13:00 Urine Protein 3+ (NEGATIVE) 12/01/23 13:00 Urine Glucose (UA) Negative (NEGATIVE) 12/01/23 13:00 Urine Ketones Negative (NEGATIVE) 12/01/23 13:00 Urine Blood 5+ (NEGATIVE) 12/01/23 13:00 Urine Nitrite Negative (NEGATIVE) 12/01/23 13:00 Urine Bilirubin Negative (NEGATIVE) 12/01/23 13:00 Urine Urobilinogen Normal (NORMAL) 12/01/23 13:00 Ur Leukocyte Esterase 3+ (NEGATIVE) 12/01/23 13:00 Urine RBC 0-2 /HPF (0-3) 12/01/23 13:00 Urine WBC Tntc /HPF (0-5) A 12/01/23 13:00 Ur Squamous Epith Cells Numerous /HPF (NEGATIVE) 12/01/23 13:00 Ur Renal Epithelial Cell Rare /HPF (NEGATIVE) 12/01/23 13:00 Urine Bacteria 4+ /HPF (NEGATIVE) 12/01/23 13:00 Ur Culture Indicated? Yes/culture set up 12/01/23 13:00 Opioid Opioid Risk Tool Age (Christoph box if 16-45): No History of Preadolescent Sexual Abuse: No Total: 0 Total Score Risk Category: Low Risk Copyright: [employer] [place] predicting aberrant behaviors Discharge Plan Diagnosis Discharge Problem: Altered mental status, UTI (urinary tract infection), Hypokalemia Discharge Plan Patient Disposition: ADMITTED INPATIENT Condition: Stable Orders to Discharge Patient Discharge Orders: Transfer (Routine); Ordered 12/01/23 Ordered By: Mayito Bean
[2023-12-01] MEDS ORDERED: ATIVAN INJ 2 MG VIAL ONE (13:14)
[2023-12-01 13:22] LABS: BASOPHILS # (AUTO) 0.1 X10^3/uL (0.0-0.1); BASOPHILS % (AUTO) 0.6 % (0.2-1.0); EOSINOPHILS # (AUTO) 0.1 x10^3/uL (0.0-0.2); EOSINOPHILS % (AUTO) 0.3 % (0.9-2.9); HEMATOCRIT 33.1 % (36.0-47.0); HEMOGLOBIN 11.1 g/dL (12.0-16.0); LYMPHOCYTES # (AUTO) 1.9 X10^3/uL (1.3-2.9); LYMPHOCYTES % (AUTO) 9.2 % (21.0-51.0); MEAN CORPUSCULAR HEMOGLOBIN 31.1 pg (27.0-34.0); MEAN CORPUSCULAR HGB CONC 33.6 g/dL (33.0-35.0); MEAN CORPUSCULAR VOLUME 92.8 fL (80.0-100.0); MEAN PLATELET VOLUME 10.1 fL (7.4-11.0); MONOCYTES # (AUTO) 2.1 x10^3/uL (0.3-0.8); MONOCYTES % (AUTO) 9.9 % (0.0-13.0); NEUTROPHILS # (AUTO) 16.8 x10^3/uL (2.2-4.8); PLATELET COUNT 161 X10^3/uL (150.0-450.0); RED BLOOD COUNT 3.57 X10^6/uL (3.5-5.4); RED CELL DISTRIBUTION WIDTH 12.9 % (11.6-16.5)
[2023-12-01 13:27] LABS: INR 1.01 (0.8-1.3)
[2023-12-01] MEDS: ATIVAN INJ 2 MG VIAL IVP ONE ×2 (13:27→14:08)
[2023-12-01 13:30] LABS: BILIRUBIN,URINE NEGATIVE (NEGATIVE); BLOOD/HEMOGLOBIN,URINE 5+ (NEGATIVE); GLUCOSE, URINE NEGATIVE (NEGATIVE); KETONES,URINE NEGATIVE (NEGATIVE); LEUKOCYTE ESTERASE ,URINE 3+ (NEGATIVE); NITRITES,URINE NEGATIVE (NEGATIVE); PROTEIN,URINE 3+ (NEGATIVE); UROBILINOGEN,URINE NORMAL (NORMAL)
--- NOTE | 2023-12-01 13:30 | EKG ---
Test Reason : ams Blood Pressure : */* mmHG Vent. Rate : 93 BPM Atrial Rate : * BPM P-R Int : * ms QRS Dur : 82 ms QT Int : 340 ms P-R-T Axes : * -37 150 degrees QTc Int : 422 ms Atrial fibrillation Left axis deviation Abnormal ECG No previous ECGs available Confirmed by Alex Awad MD ([id number]) on 12/02/2023 3:45:03 PM Referred By: Confirmed By: Alex Awad MD
[2023-12-01 13:33] LABS: ALBUMIN 3.3 g/dL (3.4-5.0); CALCIUM 9.1 mg/dL (8.5-10.1); CARBON DIOXIDE 18.3 mmol/L (21-32); COR CA(FOR HYPOALB) 9.7 mg/dL (8.5-10.1); CREATININE 1.95 mg/dL (0.55-1.02); POTASSIUM 3.1 mmol/L (3.5-5.1); TOTAL PROTEIN 6.9 g/dL (6.4-8.2)
[2023-12-01 13:44] LABS: APPEARANCE,URINE CLOUDY (CLEAR); COLOR,URINE YELLOW (YELLOW)
[2023-12-01 13:45] LABS: BACTERIA,URINE 4+ /HPF (NEGATIVE); RBC,URINE 0-2 /HPF (0-3); RENAL EPITHELIAL CELLS,URINE RARE /HPF (NEGATIVE); SQUAMOUS EPITHELIAL CELL,UR NUMEROUS /HPF (NEGATIVE)
[2023-12-01] MEDS: ATIVAN INJ 2 MG VIAL ONE (14:08)
--- NOTE | 2023-12-01 14:15 | CT ---
EXAM: BRAIN W/O CON HISTORY: ALTERED MENTAL STATUS; COMPARISON: None available. TECHNIQUE: Multiple axial images of the brain were obtained from the skull base to the vertex without administr ation of IV contrast. Dose reduction techniques including Automated Exposure Control (AEC) and adjus tment of mA and kV were utilized. FINDINGS: No acute intraparenchymal hemorrhage or mass can be identified. No extra-axial fluid collections are seen. No alteration in the attenuation of the brain parenchyma can be identified to suggest acute or subacute ischemic change. The ventricular system is symmetric and nondilated. There is chronic perive ntricular white matter disease observed and age-appropriate generalized atrophy. IMPRESSION: 1. No acute intracranial process can be identified. 2. 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 3. Age-appropriate atrophic changes are seen. THIS IS AN ELECTRONICALLY VERIFIED FINAL REPORT 12/01/2023 2:12 PM - Electronically signed by Walker Becker MD
--- NOTE | 2023-12-01 15:30 | VAS ---
EXAM:LOWER EXT VENOUS, UNILATERALHISTORY:LEFT LEG PAIN, POSS DVT;COMPARISON:None available.TECHNIQUE:Multiple martinez scale and color flow Doppler images of the deep venous system were obtained of the left lower extremity.FINDINGS:The deep venous system of the left lower extremity was evaluated from the level of the common femoral vein through the popliteal vein. Normal color flow and augmentation can be observed. In addition, normal compression is seen throughout the deep venous system.IMPRESSION:Negative for DVT.THIS IS AN ELECTRONICALLY VERIFIED FINAL REPORT12/01/2023 3:27 PM - Electronically signed by Jermaine Mayen MD
[2023-12-01] MEDS ORDERED: ROCEPHIN VIAL 1 GRAM ONE (16:09)
[2023-12-01] MEDS: ROCEPHIN VIAL 1 GRAM IV ONE (16:14)
[2023-12-01] MEDS: ROCEPHIN VIAL 1 GRAM 1 G in NS 100 ML IV 100 ML IV SCH (17:51)
[2023-12-01] MEDS: BUSPAR PO SCH (20:16)
[2023-12-01] MEDS: PROTONIX TAB 40 MG PO SCH (20:16)
[2023-12-01] MEDS: SINGULAIR TAB 10 MG PO SCH (20:16)
[2023-12-01] MEDS: NS 1,000 ML IV 1,000 ML IV SCH (20:17)
[2023-12-01] MEDS: K-RIDER 10 MEQ/100 ML WATER 10 MEQ/100 ML BAG IV SCH (20:17)
[2023-12-01] MEDS: MELATONIN PO SCH (20:17)
[2023-12-01] MEDS: FLONASE NASAL SPRAY ENOSTRIL SCH (20:17)
[2023-12-01] MEDS ORDERED: BUSPIRONE 5 MG PO SCH (21:00)
[2023-12-01] MEDS ORDERED: MELATONIN 5 MG PO SCH (21:00)
[2023-12-02 04:59] LABS: BASOPHILS # (AUTO) 0.1 X10^3/uL (0.0-0.1); BASOPHILS % (AUTO) 0.5 % (0.2-1.0); EOSINOPHILS # (AUTO) 0.1 x10^3/uL (0.0-0.2); EOSINOPHILS % (AUTO) 0.5 % (0.9-2.9); HEMATOCRIT 34.6 % (36.0-47.0); HEMOGLOBIN 11.5 g/dL (12.0-16.0); LYMPHOCYTES # (AUTO) 1.3 X10^3/uL (1.3-2.9); LYMPHOCYTES % (AUTO) 6.8 % (21.0-51.0); MEAN CORPUSCULAR HEMOGLOBIN 31.3 pg (27.0-34.0); MEAN CORPUSCULAR HGB CONC 33.4 g/dL (33.0-35.0); MEAN CORPUSCULAR VOLUME 93.6 fL (80.0-100.0); MEAN PLATELET VOLUME 10.5 fL (7.4-11.0); MONOCYTES # (AUTO) 2.1 x10^3/uL (0.3-0.8); MONOCYTES % (AUTO) 11.3 % (0.0-13.0); NEUTROPHILS % (AUTO) 80.9 % (42.0-75.0); PLATELET COUNT 170 X10^3/uL (150.0-450.0); RED BLOOD COUNT 3.69 X10^6/uL (3.5-5.4); WHITE BLOOD COUNT 18.6 X10^3/uL (3.6-10.0)
[2023-12-02 05:06] LABS: ALANINE AMINOTRANSFERASE 68 Units/L (12-78); ALKALINE PHOSPHATASE 59 Units/L (46-116); ASPARTATE AMINO TRANSFERASE 192 Units/L (15-37); BLOOD UREA NITROGEN 41 mg/dL (7-18); CALCIUM 8.8 mg/dL (8.5-10.1); CARBON DIOXIDE 19.4 mmol/L (21-32); CHLORIDE 111 mmol/L (98-107); COR CA(FOR HYPOALB) 9.6 mg/dL (8.5-10.1); CREATININE 1.85 mg/dL (0.55-1.02); GLUCOSE 98 mg/dL (65-99); SODIUM 147 mmol/L (136-145); TOTAL PROTEIN 6.8 g/dL (6.4-8.2); eGFR NON BLACK RACES 27 (>60)
[2023-12-02 05:09] LABS: POTASSIUM 2.8 mmol/L (3.5-5.1)
[2023-12-02] MEDS: CONSULT PHARMACY - POTASSIUM & MAGNESIUM XX SCH ×2 (06:38)
[2023-12-02] MEDS: SYNTHROID 50 mcg TAB PO SCH (08:15)
[2023-12-02] MEDS: PEPCID TAB 20 MG PO SCH (08:15)
[2023-12-02] MEDS: MICRO K EXTEN CAP 10 MEQ PO SCH (08:15)
[2023-12-02] MEDS: LANOXIN or DIGITEK PO SCH (08:25)
[2023-12-02] MEDS: K-RIDER 10 MEQ/100 ML WATER 10 MEQ/100 ML BAG IV SCH (08:36)
--- NOTE | 2023-12-02 09:14 | DR.H&P ---
H&P History & Physical for Day of: H&P Date: 12/02/23 Chief Complaint Chief Complaint: altered mental status Allergies Allergies Allergy/AdvReac Type Severity Reaction Status Date / Time shellfish derived Allergy Verified 12/01/23 16:06 Sulfa (Sulfonamide Allergy Verified 12/01/23 16:06 Antibiotics) [SULFA] History of Present Illness History of Present Illness: Pt is a 88 year old female [place] resident with a past medical history of hypertension, CHF, Hyperlipidemia, Dementia presenting with altered mental status. Per staff, patient's mentation appeared worse than her baseline. Labs/imaging: Wbc 18.6, Hgb 11.5, Plt 170, Na 147, K 2.8, Crea tinine 1.85, Glucose 98, UA c/w infection, Urine and Blood culture pending, CT head no acute intracranial findings. Pt was admitted for acute cystitis and altered mental status. On exam, patient appears to be back to baseline mentation. No fevers overnight. Will continue with IVF and IV antibiotics Rocephin. Hypokalemia on labs, will replete per protocol. Restart home medications. Otherwise, continue with current treatment plan. Continue to closely monitor and follow up labs in the morning. Past Medical History Past Medical History: Arthritis, CHF, Dyslipidemia, GERD and Hypertension Additional Medical History: Cataracts, Diverticulosis, Muscle Weakness, Back Pain, Skin cancer on nose Past Surgical History Surgical History: Appendectomy, Hysterectomy and Tonsillectomy Additional Surgical History: Pacemaker placement, Breast reduction Family History Family Medical History: Diabetes Mellitus, Cancer, [place], Heart Failure and Hypertension Social History Does patient currently use any type of tobacco product: No Have you used tobacco products in the last 12 months: No Type of Tobacco Use: None Does any household member use tobacco: No Alcohol Use: None Drug Use: None Medications Home Medications: Home Medications Medication Instructions Recorded Confirmed Type digoxin 125 mcg (0.125 mg) tablet 0.125 mcg PO DAILY 10/16/17 12/01/23 History furosemide 20 mg tablet 20 mg PO DAILY 10/16/17 12/01/23 History multivit-minerals no.73-iron 1 cap PO BID 10/16/17 12/01/23 History fumarate 106 mg-folic acid 1 mg capsule (Hemocyte-Plus) L.acidoph, paracasei,B. lactis 10 2 cap PO DAILY 12/20/17 12/01/23 History billion cell capsule cyanocobalamin (vitamin B-12) 1 ml IM WEEKLY ANEMIA 12/20/17 12/01/23 History 1,000 mcg/mL injection solution fluticasone propionate 50 1 spray intranasal BID 11/20/18 12/01/23 History mcg/actuation nasal spray,suspension levothyroxine 50 mcg tablet 50 mcg PO DAILY 11/20/18 12/01/23 History melatonin 5 mg capsule 5 mg PO HS 11/20/18 12/01/23 History montelukast 10 mg tablet 10 mg PO HS 11/20/18 12/01/23 History megestrol 40 mg tablet 40 mg PO BID 02/23/19 12/01/23 History acetaminophen 325 mg tablet 650 mg PO Q4H PRN 12/01/23 12/01/23 History (Tylenol) benzonatate 100 mg capsule 100 mg PO TID 12/01/23 12/01/23 History buspirone 5 mg tablet 5 mg PO BID 12/01/23 12/01/23 History cetirizine 10 mg tablet (Zyrtec) 10 mg PO DAILY 12/01/23 12/01/23 History cholecalciferol (vitamin D3) 25 1,000 unit PO DAILY 12/01/23 12/01/23 History mcg (1,000 unit) capsule clonidine 0.2 mg/24 hr weekly 1 patch QWEEK 12/01/23 12/01/23 History transdermal patch famotidine 20 mg tablet 20 mg PO BID 12/01/23 12/01/23 History ondansetron HCl 4 mg tablet 4 mg PO QDAY PRN 12/01/23 12/01/23 History potassium chloride 20 mEq 20 meq PO BID 12/01/23 12/01/23 History tablet,extended release(part/cryst) Labs 12/02/23 04:23 12/02/23 04:23 Labs: Laboratory WBC 18.6 X10^3/uL (3.6-10.0) H 12/02/23 04:23 RBC 3.69 X10^6/uL (3.5-5.4) 12/02/23 04:23 Hgb 11.5 g/dL (12.0-16.0) L 12/02/23 04:23 Hct 34.6 % (36.0-47.0) L 12/02/23 04:23 MCV 93.6 fL (80.0-100.0) 12/02/23 04:23 MCH 31.3 pg (27.0-34.0) 12/02/23 04:23 MCHC 33.4 g/dL (33.0-35.0) 12/02/23 04:23 RDW 13.0 % (11.6-16.5) 12/02/23 04:23 Plt Count 170 X10^3/uL (150.0-450.0) 12/02/23 04:23 MPV 10.5 fL (7.4-11.0) 12/02/23 04:23 Neut % (Auto) 80.9 % (42.0-75.0) H 12/02/23 04:23 Lymph % (Auto) 6.8 % (21.0-51.0) L 12/02/23 04:23 [place] % (Auto) 11.3 % (0.0-13.0) 12/02/23 04:23 Eos % (Auto) 0.5 % (0.9-2.9) L 12/02/23 04:23 Baso % (Auto) 0.5 % (0.2-1.0) 12/02/23 04:23 Neut # (Auto) 15.0 x10^3/uL (2.2-4.8) H 12/02/23 04:23 Lymph # (Auto) 1.3 X10^3/uL (1.3-2.9) 12/02/23 04:23 [place] # (Auto) 2.1 x10^3/uL (0.3-0.8) H 12/02/23 04:23 Eos # (Auto) 0.1 x10^3/uL (0.0-0.2) 12/02/23 04:23 Baso # (Auto) 0.1 X10^3/uL (0.0-0.1) 12/02/23 04:23 Absolute Nucleated RBC 0.0 /100WBC 12/02/23 04:23 PT 13.1 SECONDS (11.8-14.3) 12/01/23 13:08 INR Target Range - 12/01/23 13:08 INR 1.01 (0.8-1.3) 12/01/23 13:08 APTT 27.7 SECONDS (22.9-36.5) 12/01/23 13:08 PTT Comment - 12/01/23 13:08 Sodium 147 mmol/L (136-145) H 12/02/23 04:23 Corrected Sodium TNP 12/02/23 04:23 Potassium 2.8 mmol/L (3.5-5.1) L* 12/02/23 04:23 Chloride 111 mmol/L (98-107) H 12/02/23 04:23 Carbon Dioxide 19.4 mmol/L (21-32) L 12/02/23 04:23 BUN 41 mg/dL (7-18) H 12/02/23 04:23 Creatinine 1.85 mg/dL (0.55-1.02) H 12/02/23 04:23 Est GFR (MDRD) Af Amer 33 (>60) L 12/02/23 04:23 Est GFR (MDRD) Non-Af 27 (>60) L 12/02/23 04:23 Glucose 98 mg/dL (65-99) 12/02/23 04:23 Lactic Acid 0.9 mmol/L (0.4-2.0) 12/01/23 16:18 Calcium 8.8 mg/dL (8.5-10.1) 12/02/23 04:23 Corrected Calcium 9.6 mg/dL (8.5-10.1) 12/02/23 04:23 Magnesium 2.2 mg/dL (2.0-2.9) 12/02/23 04:23 Total Bilirubin 0.90 mg/dL (0.2-1.0) 12/02/23 04:23 AST 192 Units/L (15-37) H 12/02/23 04:23 ALT 68 Units/L (12-78) 12/02/23 04:23 Alkaline Phosphatase 59 Units/L (46-116) 12/02/23 04:23 Total Protein 6.8 g/dL (6.4-8.2) 12/02/23 04:23 Albumin 3.0 g/dL (3.4-5.0) L 12/02/23 04:23 Globulin 3.8 g/dL (2.5-4.5) 12/02/23 04:23 Albumin/Globulin Ratio 0.8 Ratio (1.1-2.1) L 12/02/23 04:23 Specimen Type Catherized urine 12/01/23 13:00 Urine Color Yellow (YELLOW) 12/01/23 13:00 Urine Appearance Cloudy (CLEAR) 12/01/23 13:00 Urine pH 5.0 (5.0 - 8.0) 12/01/23 13:00 Ur Specific [place] 1.025 (1.000-1.030) 12/01/23 13:00 Urine Protein 3+ (NEGATIVE) 12/01/23 13:00 Urine Glucose (UA) Negative (NEGATIVE) 12/01/23 13:00 Urine Ketones Negative (NEGATIVE) 12/01/23 13:00 Urine Blood 5+ (NEGATIVE) 12/01/23 13:00 Urine Nitrite Negative (NEGATIVE) 12/01/23 13:00 Urine Bilirubin Negative (NEGATIVE) 12/01/23 13:00 Urine Urobilinogen Normal (NORMAL) 12/01/23 13:00 Ur Leukocyte Esterase 3+ (NEGATIVE) 12/01/23 13:00 Urine RBC 0-2 /HPF (0-3) 12/01/23 13:00 Urine WBC Tntc /HPF (0-5) A 12/01/23 13:00 Ur Squamous Epith Cells Numerous /HPF (NEGATIVE) 12/01/23 13:00 Ur Renal Epithelial Cell Rare /HPF (NEGATIVE) 12/01/23 13:00 Urine Bacteria 4+ /HPF (NEGATIVE) 12/01/23 13:00 Ur Culture Indicated? Yes/culture set up 12/01/23 13:00 Digoxin 0.42 ng/mL (0.9-2) L 12/02/23 04:23 Review of Systems Constitutional: Weakness Eyes: No Symptoms Reported ENT: No Symptoms Reported Respiratory: No Symptoms Reported Cardiovascular: No Symptoms Reported Gastrointestinal: No Symptoms Reported Genitourinary: No Symptoms Reported Musculoskeletal: No Symptoms Reported Skin: No Symptoms Reported Neurological: Other (dementia) Physical Exam Vital Signs: Vital Signs Temperature 97.4 F Temperature 98.2 F Pulse Rate [Bilateral Radial] 85 Pulse Rate [Bilateral Radial] 73 Pulse Rate 85 Respiratory Rate 18 Respiratory Rate 20 Blood Pressure [Left Arm] 179/80 Blood Pressure [Left Arm] 139/62 O2 Sat by Pulse Oximetry 96 O2 Sat by Pulse Oximetry 100 Oriented: Not Oriented (Dementia) Eyes: Normal Ear: Normal Nose: Normal Throat: Normal Respiratory: Clear Throughout Cardiovascular: Normal : Normal Auscultation: Bowel Sounds: Normal Palpation: Normal Tenderness: Normal Skin: Normal Musculoskeletal: Normal Mood Description: Calm Speech Pattern: Inappropriate (dementia) Assessment/Plan (1) UTI (urinary tract infection): Status: Acute Plan: IV rocephin Urine/Blood culture pending (2) Hypokalemia: Status: Acute Plan: replete per protocol (3) Altered mental status: Status: Acute Review H&P Reviewed: Yes Patient was examined?: Yes
[2023-12-02] MEDS: VSL#3 PROBIOTIC CAP 112.5 B PO SCH (10:02)
[2023-12-02] MEDS: ACIDOPH PARACASEI B LACTIS PO SCH (10:56)
[2023-12-02] MEDS ORDERED: ATIVAN INJ 2 MG VIAL ONE (11:21)
[2023-12-02] MEDS: ATIVAN INJ 2 MG VIAL IVP PRN (11:28)
[2023-12-02] MEDS: TYLENOL 325 MG TAB PO PRN (17:56)
[2023-12-03 05:47] LABS: BASOPHILS # (AUTO) 0.1 X10^3/uL (0.0-0.1); BASOPHILS % (AUTO) 0.6 % (0.2-1.0); EOSINOPHILS # (AUTO) 0.3 x10^3/uL (0.0-0.2); EOSINOPHILS % (AUTO) 1.5 % (0.9-2.9); HEMATOCRIT 28.6 % (36.0-47.0); LYMPHOCYTES # (AUTO) 1.2 X10^3/uL (1.3-2.9); LYMPHOCYTES % (AUTO) 6.6 % (21.0-51.0); MEAN CORPUSCULAR HEMOGLOBIN 31.1 pg (27.0-34.0); MEAN CORPUSCULAR HGB CONC 33.4 g/dL (33.0-35.0); MEAN CORPUSCULAR VOLUME 93.1 fL (80.0-100.0); MEAN PLATELET VOLUME 10.3 fL (7.4-11.0); MONOCYTES # (AUTO) 1.5 x10^3/uL (0.3-0.8); MONOCYTES % (AUTO) 8.4 % (0.0-13.0); NEUTROPHILS # (AUTO) 14.4 x10^3/uL (2.2-4.8); NEUTROPHILS % (AUTO) 82.9 % (42.0-75.0); PLATELET COUNT 155 X10^3/uL (150.0-450.0); RED BLOOD COUNT 3.07 X10^6/uL (3.5-5.4); WHITE BLOOD COUNT 17.4 X10^3/uL (3.6-10.0)
[2023-12-03 05:56] LABS: ALANINE AMINOTRANSFERASE 71 Units/L (12-78); ALBUMIN 2.5 g/dL (3.4-5.0); ALKALINE PHOSPHATASE 53 Units/L (46-116); ASPARTATE AMINO TRANSFERASE 179 Units/L (15-37); BLOOD UREA NITROGEN 35 mg/dL (7-18); CALCIUM 8.4 mg/dL (8.5-10.1); CARBON DIOXIDE 19.8 mmol/L (21-32); CHLORIDE 114 mmol/L (98-107); COR CA(FOR HYPOALB) 9.6 mg/dL (8.5-10.1); CREATININE 1.56 mg/dL (0.55-1.02); GLUCOSE 98 mg/dL (65-99); POTASSIUM 3.9 mmol/L (3.5-5.1); SODIUM 148 mmol/L (136-145); TOTAL PROTEIN 5.9 g/dL (6.4-8.2); eGFR NON BLACK RACES 33 (>60)
[2023-12-03 05:58] LABS: HEMOGLOBIN 9.5 g/dL (12.0-16.0)
--- NOTE | 2023-12-03 13:50 | PCM.PROG ---
Progress Note Progress Note for Day of Date of Exam: 12/03/23 Subjective Subjective: Pt is a 88 year old female [place] resident with a past medical history of hypertension, CHF, Hyperlipidemia, Dementia admitted for acute cystitis and altered mental status. This morning she is resting in bed. No acute events overnight. Family states patient has been complaining of left arm and leg pain. Labs/imaging: Wbc 17, Hgb 9.5, Plt 155, Na 148, K 3.9, Creatinine 1.56, Glucose 98, Urine culture positive for gram negative rods and Blood culture pending. On exam, patient appears to be back to baseline mentation. No fevers overnight. Will continue with IVF and IV antibiotics Rocephin. Home medications have been resumed. Will order XR of arm and leg to evaluate. Otherwise, will continue with current treatment plan. Continue to closely monitor and follow up labs in the morning. Past Medical Family Social History Allergies: Allergies shellfish derived Allergy (Verified 12/01/23 16:06) Sulfa (Sulfonamide Antibiotics) [SULFA] Allergy (Verified 12/01/23 16:06) Review of Systems ROS changes noted: see HPI Vital Signs and I&O's Vital Signs: Vital Signs Temperature 98.1 F Temperature 98.5 F Pulse Rate [Bilateral Radial] 73 Pulse Rate [Bilateral Radial] 87 Pulse Rate 92 Respiratory Rate 20 Respiratory Rate 20 Blood Pressure [Left Arm] 168/74 Blood Pressure [Left Arm] 144/72 O2 Sat by Pulse Oximetry 98 O2 Sat by Pulse Oximetry 98 Intake and Output: Intake & Output 11/30/23 12/01/23 12/02/23 12/03/23 23:59 23:59 23:59 23:59 Intake Total 240 / 240 2207 / 2207 460 / 460 Balance 240 / 240 2207 / 2207 460 / 460 Physical Exam Oriented: Not Oriented (Dementia) Eyes: Normal Ear: Normal Nose: Normal Throat: Normal Respiratory: Normal Cardiovascular: Normal : Normal Auscultation: Bowel Sounds: Normal Tenderness: Normal Skin: Normal Musculoskeletal: Normal Mood Description: Calm Speech Pattern: Inappropriate Laboratory and Diagnostics 12/03/23 05:16 12/03/23 05:16 Labs: 12/01/23 13:00 Urine,Catheterized Urine Culture - Preliminary Laboratory WBC 17.4 X10^3/uL (3.6-10.0) H 12/03/23 05:16 RBC 3.07 X10^6/uL (3.5-5.4) L 12/03/23 05:16 Hgb 9.5 g/dL (12.0-16.0) L D 12/03/23 05:16 Hct 28.6 % (36.0-47.0) L 12/03/23 05:16 MCV 93.1 fL (80.0-100.0) 12/03/23 05:16 MCH 31.1 pg (27.0-34.0) 12/03/23 05:16 MCHC 33.4 g/dL (33.0-35.0) 12/03/23 05:16 RDW 13.0 % (11.6-16.5) 12/03/23 05:16 Plt Count 155 X10^3/uL (150.0-450.0) 12/03/23 05:16 MPV 10.3 fL (7.4-11.0) 12/03/23 05:16 Neut % (Auto) 82.9 % (42.0-75.0) H 12/03/23 05:16 Lymph % (Auto) 6.6 % (21.0-51.0) L 12/03/23 05:16 [place] % (Auto) 8.4 % (0.0-13.0) 12/03/23 05:16 Eos % (Auto) 1.5 % (0.9-2.9) 12/03/23 05:16 Baso % (Auto) 0.6 % (0.2-1.0) 12/03/23 05:16 Neut # (Auto) 14.4 x10^3/uL (2.2-4.8) H 12/03/23 05:16 Lymph # (Auto) 1.2 X10^3/uL (1.3-2.9) L 12/03/23 05:16 [place] # (Auto) 1.5 x10^3/uL (0.3-0.8) H 12/03/23 05:16 Eos # (Auto) 0.3 x10^3/uL (0.0-0.2) H 12/03/23 05:16 Baso # (Auto) 0.1 X10^3/uL (0.0-0.1) 12/03/23 05:16 Absolute Nucleated RBC 0.0 /100WBC 12/03/23 05:16 PT 13.1 SECONDS (11.8-14.3) 12/01/23 13:08 INR Target Range - 12/01/23 13:08 INR 1.01 (0.8-1.3) 12/01/23 13:08 APTT 27.7 SECONDS (22.9-36.5) 12/01/23 13:08 PTT Comment - 12/01/23 13:08 Sodium 148 mmol/L (136-145) H 12/03/23 05:16 Corrected Sodium TNP 12/03/23 05:16 Potassium 3.9 mmol/L (3.5-5.1) 12/03/23 05:16 Chloride 114 mmol/L (98-107) H 12/03/23 05:16 Carbon Dioxide 19.8 mmol/L (21-32) L 12/03/23 05:16 BUN 35 mg/dL (7-18) H 12/03/23 05:16 Creatinine 1.56 mg/dL (0.55-1.02) H 12/03/23 05:16 Est GFR (MDRD) Af Amer 40 (>60) L 12/03/23 05:16 Est GFR (MDRD) Non-Af 33 (>60) L 12/03/23 05:16 Glucose 98 mg/dL (65-99) 12/03/23 05:16 Lactic Acid 0.9 mmol/L (0.4-2.0) 12/01/23 16:18 Calcium 8.4 mg/dL (8.5-10.1) L 12/03/23 05:16 Corrected Calcium 9.6 mg/dL (8.5-10.1) 12/03/23 05:16 Magnesium 2.0 mg/dL (2.0-2.9) 12/03/23 05:16 Total Bilirubin 0.80 mg/dL (0.2-1.0) 12/03/23 05:16 AST 179 Units/L (15-37) H 12/03/23 05:16 ALT 71 Units/L (12-78) 12/03/23 05:16 Alkaline Phosphatase 53 Units/L (46-116) 12/03/23 05:16 Total Protein 5.9 g/dL (6.4-8.2) L 12/03/23 05:16 Albumin 2.5 g/dL (3.4-5.0) L 12/03/23 05:16 Globulin 3.4 g/dL (2.5-4.5) 12/03/23 05:16 Albumin/Globulin Ratio 0.7 Ratio (1.1-2.1) L 12/03/23 05:16 Specimen Type Catherized urine 12/01/23 13:00 Urine Color Yellow (YELLOW) 12/01/23 13:00 Urine Appearance Cloudy (CLEAR) 12/01/23 13:00 Urine pH 5.0 (5.0 - 8.0) 12/01/23 13:00 Ur Specific [place] 1.025 (1.000-1.030) 12/01/23 13:00 Urine Protein 3+ (NEGATIVE) 12/01/23 13:00 Urine Glucose (UA) Negative (NEGATIVE) 12/01/23 13:00 Urine Ketones Negative (NEGATIVE) 12/01/23 13:00 Urine Blood 5+ (NEGATIVE) 12/01/23 13:00 Urine Nitrite Negative (NEGATIVE) 12/01/23 13:00 Urine Bilirubin Negative (NEGATIVE) 12/01/23 13:00 Urine Urobilinogen Normal (NORMAL) 12/01/23 13:00 Ur Leukocyte Esterase 3+ (NEGATIVE) 12/01/23 13:00 Urine RBC 0-2 /HPF (0-3) 12/01/23 13:00 Urine WBC Tntc /HPF (0-5) A 12/01/23 13:00 Ur Squamous Epith Cells Numerous /HPF (NEGATIVE) 12/01/23 13:00 Ur Renal Epithelial Cell Rare /HPF (NEGATIVE) 12/01/23 13:00 Urine Bacteria 4+ /HPF (NEGATIVE) 12/01/23 13:00 Ur Culture Indicated? Yes/culture set up 12/01/23 13:00 Digoxin 0.42 ng/mL (0.9-2) L 12/02/23 04:23 Plan (1) UTI (urinary tract infection): Status: Acute Plan: IV rocephin Urine/Blood culture pending (2) Hypokalemia: Status: Acute Plan: replete per protocol (3) Altered mental status: Status: Acute
[2023-12-04 06:08] LABS: BASOPHILS # (AUTO) 0.1 X10^3/uL (0.0-0.1); BASOPHILS % (AUTO) 0.4 % (0.2-1.0); EOSINOPHILS # (AUTO) 0.2 x10^3/uL (0.0-0.2); HEMATOCRIT 30.2 % (36.0-47.0); LYMPHOCYTES # (AUTO) 1.3 X10^3/uL (1.3-2.9); LYMPHOCYTES % (AUTO) 6.5 % (21.0-51.0); MEAN CORPUSCULAR HEMOGLOBIN 31.2 pg (27.0-34.0); MEAN CORPUSCULAR VOLUME 94.3 fL (80.0-100.0); MEAN PLATELET VOLUME 10.3 fL (7.4-11.0); MONOCYTES # (AUTO) 1.9 x10^3/uL (0.3-0.8); MONOCYTES % (AUTO) 9.3 % (0.0-13.0); NEUTROPHILS % (AUTO) 82.8 % (42.0-75.0); PLATELET COUNT 176 X10^3/uL (150.0-450.0); RED CELL DISTRIBUTION WIDTH 13.3 % (11.6-16.5); WHITE BLOOD COUNT 20.6 X10^3/uL (3.6-10.0)
[2023-12-04 06:25] LABS: ALANINE AMINOTRANSFERASE 83 Units/L (12-78); ALBUMIN 2.5 g/dL (3.4-5.0); ALKALINE PHOSPHATASE 63 Units/L (46-116); ASPARTATE AMINO TRANSFERASE 189 Units/L (15-37); BLOOD UREA NITROGEN 30 mg/dL (7-18); CALCIUM 8.8 mg/dL (8.5-10.1); CARBON DIOXIDE 20.8 mmol/L (21-32); CREATININE 1.33 mg/dL (0.55-1.02); GLUCOSE 92 mg/dL (65-99); POTASSIUM 3.9 mmol/L (3.5-5.1); SODIUM 149 mmol/L (136-145); TOTAL PROTEIN 6.4 g/dL (6.4-8.2); eGFR NON BLACK RACES 40 (>60)
[2023-12-04 06:39] LABS: CHLORIDE 115 mmol/L (98-107)
--- NOTE | 2023-12-04 06:41 | RAD ---
EXAM: Left femur four views HISTORY: Leg pain dementia COMPARISON: Left hip 11/28/2023 FINDINGS: Osteopenia with marked soft tissue wasting. Intact femur without evidence for fracture, displacemen t or osteolytic disease. IMPRESSION: No acute findings left femur. THIS IS AN ELECTRONICALLY VERIFIED FINAL REPORT 12/04/2023 6:38 AM - Electronically signed by Noel Mckeon MD
[2023-12-04] MEDS: LOVENOX INJ 40 MG SYR SC SCH (08:55)
[2023-12-04] MEDS: D5W 1,000 ML IV 1,000 ML IV SCH (09:03)
--- NOTE | 2023-12-04 09:21 | RAD ---
EXAM:Left humerus three viewsHISTORY:Arm painCOMPARISON:NoneFINDINGS:The humerus appears intact without evidence for recent injury, dislocation or osteolytic disease.Elevation of the humeral head in the glenoid narrows the subacromial space.Healed fracture deformity distal clavicle.IMPRESSION:No acute findings. Narrowed subacromial space suggesting chronic rotator cuff disease. Nonacute fracture deformity left clavicle.THIS IS AN ELECTRONICALLY VERIFIED FINAL REPORT12/04/2023 9:18 AM - Electronically signed by Noel Mckeon MD
--- NOTE | 2023-12-04 09:48 | PCM.PROG ---
Progress Note Progress Note for Day of Date of Exam: 12/04/23 Subjective Subjective: Patient seen at bedside, no acute events overnight. Patient is a resident of [facility], currently admitted for AMS and acute cystitis. She is being treated with IV Rocephin for E.coli UTI. She was noted to have left leg discoloration and cold to touch. She had LE US on 12/01/23 which did not show DVT, XR yesterday which was negative for fracture. Unclear how long patient's leg has been like this in the [facility]. Labs/imaging reviewed -WBC 20 Hgb 10.0 Na:149 Cl:115 BUN/Cr: 30/1.23 - AST/ALT:189/83 - Blood Cx: no growth Urine Cx: E.coli Plan: Will change IVF to D5 at 75cc/hr. Continue IV Rocephin. Will order CTA-run off to assess left lower ext. Consult Dr Ernst. Continue current medications. Monitor AM labs/imaging. Time spent for clinical assessment, reviewing labs/imaging, physical exam, decision making and documentation greater than 45 mins. Past Medical Family Social History Allergies: Allergies shellfish derived Allergy (Verified 12/01/23 16:06) Sulfa (Sulfonamide Antibiotics) [SULFA] Allergy (Verified 12/01/23 16:06) Vital Signs and I&O's Vital Signs: Vital Signs Temperature 97.6 F Temperature 97.9 F Pulse Rate [Bilateral Radial] 100 Pulse Rate [Bilateral Radial] 70 Pulse Rate 100 Respiratory Rate 18 Respiratory Rate 18 Blood Pressure [Left Arm] 139/90 Blood Pressure [Left Arm] 172/90 O2 Sat by Pulse Oximetry 96 O2 Sat by Pulse Oximetry 98 Intake and Output: Intake & Output 12/01/23 12/02/23 12/03/23 12/04/23 23:59 23:59 23:59 23:59 Intake Total 240 / 240 2207 / 2207 950 / 950 113 / 113 Balance 240 / 240 2207 / 2207 950 / 950 113 / 113 Physical Exam Oriented: Not Oriented (Dementia) Eyes: Normal Ear: Normal Nose: Normal Throat: Normal Respiratory: Normal Cardiovascular: Normal Auscultation: Bowel Sounds: Normal Tenderness: Normal Skin: Normal Musculoskeletal: Left and Leg (cold, chronic discoloration/ecchymosis, no pulse noted in the left foot. ) Psychiatric: Agitation Speech Pattern: Inappropriate Laboratory and Diagnostics 12/04/23 05:05 12/04/23 05:05 Labs: 12/01/23 13:00 Urine,Catheterized Urine Culture - Final Escherichia Coli 12/01/23 15:48 Blood Blood Culture - Preliminary 12/01/23 15:38 Blood Blood Culture - Preliminary Laboratory WBC 20.6 X10^3/uL (3.6-10.0) H 12/04/23 05:05 RBC 3.20 X10^6/uL (3.5-5.4) L 12/04/23 05:05 Hgb 10.0 g/dL (12.0-16.0) L 12/04/23 05:05 Hct 30.2 % (36.0-47.0) L 12/04/23 05:05 MCV 94.3 fL (80.0-100.0) 12/04/23 05:05 MCH 31.2 pg (27.0-34.0) 12/04/23 05:05 MCHC 33.0 g/dL (33.0-35.0) 12/04/23 05:05 RDW 13.3 % (11.6-16.5) 12/04/23 05:05 Plt Count 176 X10^3/uL (150.0-450.0) 12/04/23 05:05 MPV 10.3 fL (7.4-11.0) 12/04/23 05:05 Neut % (Auto) 82.8 % (42.0-75.0) H 12/04/23 05:05 Lymph % (Auto) 6.5 % (21.0-51.0) L 12/04/23 05:05 [place] % (Auto) 9.3 % (0.0-13.0) 12/04/23 05:05 Eos % (Auto) 1.0 % (0.9-2.9) 12/04/23 05:05 Baso % (Auto) 0.4 % (0.2-1.0) 12/04/23 05:05 Neut # (Auto) 17.0 x10^3/uL (2.2-4.8) H 12/04/23 05:05 Lymph # (Auto) 1.3 X10^3/uL (1.3-2.9) 12/04/23 05:05 [place] # (Auto) 1.9 x10^3/uL (0.3-0.8) H 12/04/23 05:05 Eos # (Auto) 0.2 x10^3/uL (0.0-0.2) 12/04/23 05:05 Baso # (Auto) 0.1 X10^3/uL (0.0-0.1) 12/04/23 05:05 Absolute Nucleated RBC 0.0 /100WBC 12/04/23 05:05 PT 13.1 SECONDS (11.8-14.3) 12/01/23 13:08 INR Target Range - 12/01/23 13:08 INR 1.01 (0.8-1.3) 12/01/23 13:08 APTT 27.7 SECONDS (22.9-36.5) 12/01/23 13:08 PTT Comment - 12/01/23 13:08 Sodium 149 mmol/L (136-145) H 12/04/23 05:05 Corrected Sodium TNP 12/04/23 05:05 Potassium 3.9 mmol/L (3.5-5.1) 12/04/23 05:05 Chloride 115 mmol/L (98-107) H* 12/04/23 05:05 Carbon Dioxide 20.8 mmol/L (21-32) L 12/04/23 05:05 BUN 30 mg/dL (7-18) H 12/04/23 05:05 Creatinine 1.33 mg/dL (0.55-1.02) H 12/04/23 05:05 Est GFR (MDRD) Af Amer 49 (>60) L 12/04/23 05:05 Est GFR (MDRD) Non-Af 40 (>60) L 12/04/23 05:05 Glucose 92 mg/dL (65-99) 12/04/23 05:05 Lactic Acid 0.9 mmol/L (0.4-2.0) 12/01/23 16:18 Calcium 8.8 mg/dL (8.5-10.1) 12/04/23 05:05 Corrected Calcium 10.0 mg/dL (8.5-10.1) 12/04/23 05:05 Magnesium 2.0 mg/dL (2.0-2.9) 12/03/23 05:16 Total Bilirubin 0.90 mg/dL (0.2-1.0) 12/04/23 05:05 AST 189 Units/L (15-37) H 12/04/23 05:05 ALT 83 Units/L (12-78) H 12/04/23 05:05 Alkaline Phosphatase 63 Units/L (46-116) 12/04/23 05:05 Total Protein 6.4 g/dL (6.4-8.2) 12/04/23 05:05 Albumin 2.5 g/dL (3.4-5.0) L 12/04/23 05:05 Globulin 3.9 g/dL (2.5-4.5) 12/04/23 05:05 Albumin/Globulin Ratio 0.6 Ratio (1.1-2.1) L 12/04/23 05:05 Specimen Type Catherized urine 12/01/23 13:00 Urine Color Yellow (YELLOW) 12/01/23 13:00 Urine Appearance Cloudy (CLEAR) 12/01/23 13:00 Urine pH 5.0 (5.0 - 8.0) 12/01/23 13:00 Ur Specific [place] 1.025 (1.000-1.030) 12/01/23 13:00 Urine Protein 3+ (NEGATIVE) 12/01/23 13:00 Urine Glucose (UA) Negative (NEGATIVE) 12/01/23 13:00 Urine Ketones Negative (NEGATIVE) 12/01/23 13:00 Urine Blood 5+ (NEGATIVE) 12/01/23 13:00 Urine Nitrite Negative (NEGATIVE) 12/01/23 13:00 Urine Bilirubin Negative (NEGATIVE) 12/01/23 13:00 Urine Urobilinogen Normal (NORMAL) 12/01/23 13:00 Ur Leukocyte Esterase 3+ (NEGATIVE) 12/01/23 13:00 Urine RBC 0-2 /HPF (0-3) 12/01/23 13:00 Urine WBC Tntc /HPF (0-5) A 12/01/23 13:00 Ur Squamous Epith Cells Numerous /HPF (NEGATIVE) 12/01/23 13:00 Ur Renal Epithelial Cell Rare /HPF (NEGATIVE) 12/01/23 13:00 Urine Bacteria 4+ /HPF (NEGATIVE) 12/01/23 13:00 Ur Culture Indicated? Yes/culture set up 12/01/23 13:00 Digoxin 0.80 ng/mL (0.9-2) L 12/04/23 05:05 Plan (1) PVD (peripheral vascular disease): Status: Acute (2) UTI (urinary tract infection): Status: Acute Qualifiers: Hematuria presence: without hematuria Urinary tract infection type: acute cystitis Qualified Code(s): N30.00 - Acute cystitis without hematuria (3) Hypokalemia: Status: Acute Plan: replete per protocol (4) Altered mental status: Status: Acute (5) Chronic kidney disease: Status: Chronic Qualifiers: Chronic kidney disease stage: stage 2 (mild) Qualified Code(s): N18.2 - Chronic kidney disease, stage 2 (mild) (6) Atrial fibrillation: Status: Chronic Qualifiers: Atrial fibrillation type: chronic Qualified Code(s): I48.2 - Chronic atrial fibrillation (7) Dementia: Status: Acute
[2023-12-04] MEDS: NORCO 5/325 MG TAB PO PRN (15:33)
[2023-12-05 04:48] LABS: BASOPHILS # (AUTO) 0.1 X10^3/uL (0.0-0.1); BASOPHILS % (AUTO) 0.3 % (0.2-1.0); EOSINOPHILS # (AUTO) 0.3 x10^3/uL (0.0-0.2); EOSINOPHILS % (AUTO) 1.7 % (0.9-2.9); HEMATOCRIT 28.5 % (36.0-47.0); HEMOGLOBIN 9.5 g/dL (12.0-16.0); LYMPHOCYTES # (AUTO) 1.3 X10^3/uL (1.3-2.9); LYMPHOCYTES % (AUTO) 7.4 % (21.0-51.0); MEAN CORPUSCULAR HEMOGLOBIN 31.4 pg (27.0-34.0); MEAN CORPUSCULAR HGB CONC 33.4 g/dL (33.0-35.0); MEAN PLATELET VOLUME 10.1 fL (7.4-11.0); MONOCYTES # (AUTO) 2.1 x10^3/uL (0.3-0.8); MONOCYTES % (AUTO) 11.9 % (0.0-13.0); NEUTROPHILS # (AUTO) 13.9 x10^3/uL (2.2-4.8); NEUTROPHILS % (AUTO) 78.7 % (42.0-75.0); PLATELET COUNT 163 X10^3/uL (150.0-450.0); RED BLOOD COUNT 3.03 X10^6/uL (3.5-5.4); WHITE BLOOD COUNT 17.7 X10^3/uL (3.6-10.0)
[2023-12-05 04:58] LABS: ALBUMIN 2.1 g/dL (3.4-5.0); CALCIUM 8.1 mg/dL (8.5-10.1); CARBON DIOXIDE 22.4 mmol/L (21-32); COR CA(FOR HYPOALB) 9.6 mg/dL (8.5-10.1); CREATININE 1.38 mg/dL (0.55-1.02); POTASSIUM 3.9 mmol/L (3.5-5.1); TOTAL PROTEIN 5.8 g/dL (6.4-8.2)
--- NOTE | 2023-12-05 09:50 | PCM.PROG ---
Progress Note Progress Note for Day of Date of Exam: 12/05/23 Subjective Subjective: Patient seen at bedside, no acute events overnight. Patient is a resident of [facility], currently admitted for AMS and acute cystitis. She is being treated with IV Rocephin for E.coli UTI. She was noted to have left leg discoloration and cold to touch. She had LE US on 12/01/23 which did not show DVT, XRs which were negative for fracture. Unclear how long [facility] and Vascular consult was ordered yesterday to evaluate further but patient's family refused to have any further work-up done regarding patient's left leg. Daughter prefers patient to be comfortable. Labs/imaging reviewed -WBC 17.7 Hgb 9.5 Na:145 Cl:111 BUN/Cr: 26/1.38 - AST/ALT:129/77 - Blood Cx: no growth Urine Cx: E.coli Plan: Patient's left LE appears worse today. She appears to be comfortable. Will discuss with daughter regarding patient's wishes and treatment plan. Continue D5. Continue IV rocephin today. Continue current medications. Monitor AM labs/imaging. Update: contacted patient's daughter, Camille. Updated regarding patient's current status and treatment. She states she has discussed with her brother and other family members and would like the patient to be on hospice for comfort care measures. She states they do not want to put her mother through anymore testing and interventions. Patient is a resident at [facility] and would prefer her to go back with comfort measures. Time spent for clinical assessment, reviewing labs/imaging, physical exam, decision making and documentation greater than 45 mins. Past Medical Family Social History Allergies: Allergies shellfish derived Allergy (Verified 12/01/23 16:06) Sulfa (Sulfonamide Antibiotics) [SULFA] Allergy (Verified 12/01/23 16:06) Vital Signs and I&O's Vital Signs: Vital Signs Temperature 98.6 F Pulse Rate [Bilateral Radial] 70 Respiratory Rate 20 Respiratory Rate 20 Respiratory Rate 19 Blood Pressure [Left Arm] 157/66 O2 Sat by Pulse Oximetry 98 Intake and Output: Intake & Output 12/02/23 12/03/23 12/04/23 12/05/23 23:59 23:59 23:59 23:59 Intake Total 2207 / 2207 950 / 950 989 / 989 890 / 890 Output Total 500 / 500 Balance 2206 / 7 950 / 950 989 / 989 390 / 390 Physical Exam Oriented: Not Oriented (Dementia) Eyes: Normal Ear: Normal Nose: Normal Throat: Normal Respiratory: Normal Cardiovascular: Normal : Normal Auscultation: Bowel Sounds: Normal Tenderness: Normal Skin: Normal Musculoskeletal: Left and Leg (cold, chronic discoloration/ecchymosis, blue discoloration, some necrosis on the toe.no pulse noted in the left foot. ) Psychiatric: Agitation Mood Description: Calm Speech Pattern: Unclear Laboratory and Diagnostics 12/05/23 04:08 12/05/23 04:08 Labs: 12/01/23 13:00 Urine,Catheterized Urine Culture - Final Escherichia Coli 12/01/23 15:48 Blood Blood Culture - Preliminary 12/01/23 15:38 Blood Blood Culture - Preliminary Laboratory WBC 17.7 X10^3/uL (3.6-10.0) H 12/05/23 04:08 RBC 3.03 X10^6/uL (3.5-5.4) L 12/05/23 04:08 Hgb 9.5 g/dL (12.0-16.0) L 12/05/23 04:08 Hct 28.5 % (36.0-47.0) L 12/05/23 04:08 MCV 94.0 fL (80.0-100.0) 12/05/23 04:08 MCH 31.4 pg (27.0-34.0) 12/05/23 04:08 MCHC 33.4 g/dL (33.0-35.0) 12/05/23 04:08 RDW 13.0 % (11.6-16.5) 12/05/23 04:08 Plt Count 163 X10^3/uL (150.0-450.0) 12/05/23 04:08 MPV 10.1 fL (7.4-11.0) 12/05/23 04:08 Neut % (Auto) 78.7 % (42.0-75.0) H 12/05/23 04:08 Lymph % (Auto) 7.4 % (21.0-51.0) L 12/05/23 04:08 [place] % (Auto) 11.9 % (0.0-13.0) 12/05/23 04:08 Eos % (Auto) 1.7 % (0.9-2.9) 12/05/23 04:08 Baso % (Auto) 0.3 % (0.2-1.0) 12/05/23 04:08 Neut # (Auto) 13.9 x10^3/uL (2.2-4.8) H 12/05/23 04:08 Lymph # (Auto) 1.3 X10^3/uL (1.3-2.9) 12/05/23 04:08 [place] # (Auto) 2.1 x10^3/uL (0.3-0.8) H 12/05/23 04:08 Eos # (Auto) 0.3 x10^3/uL (0.0-0.2) H 12/05/23 04:08 Baso # (Auto) 0.1 X10^3/uL (0.0-0.1) 12/05/23 04:08 Absolute Nucleated RBC 0.0 /100WBC 12/05/23 04:08 PT 13.1 SECONDS (11.8-14.3) 12/01/23 13:08 INR Target Range - 12/01/23 13:08 INR 1.01 (0.8-1.3) 12/01/23 13:08 APTT 27.7 SECONDS (22.9-36.5) 12/01/23 13:08 PTT Comment - 12/01/23 13:08 Sodium 145 mmol/L (136-145) 12/05/23 04:08 Corrected Sodium 146 mmol/L (136-145) H 12/05/23 04:08 Potassium 3.9 mmol/L (3.5-5.1) 12/05/23 04:08 Chloride 111 mmol/L (98-107) H 12/05/23 04:08 Carbon Dioxide 22.4 mmol/L (21-32) 12/05/23 04:08 BUN 26 mg/dL (7-18) H 12/05/23 04:08 Creatinine 1.38 mg/dL (0.55-1.02) H 12/05/23 04:08 Est GFR (MDRD) Af Amer 47 (>60) L 12/05/23 04:08 Est GFR (MDRD) Non-Af 38 (>60) L 12/05/23 04:08 Glucose 122 mg/dL (65-99) H 12/05/23 04:08 Lactic Acid 0.9 mmol/L (0.4-2.0) 12/01/23 16:18 Calcium 8.1 mg/dL (8.5-10.1) L 12/05/23 04:08 Corrected Calcium 9.6 mg/dL (8.5-10.1) 12/05/23 04:08 Magnesium 2.0 mg/dL (2.0-2.9) 12/03/23 05:16 Total Bilirubin 0.70 mg/dL (0.2-1.0) 12/05/23 04:08 AST 129 Units/L (15-37) H 12/05/23 04:08 ALT 77 Units/L (12-78) 12/05/23 04:08 Alkaline Phosphatase 57 Units/L (46-116) 12/05/23 04:08 Total Protein 5.8 g/dL (6.4-8.2) L 12/05/23 04:08 Albumin 2.1 g/dL (3.4-5.0) L 12/05/23 04:08 Globulin 3.7 g/dL (2.5-4.5) 12/05/23 04:08 Albumin/Globulin Ratio 0.6 Ratio (1.1-2.1) L 12/05/23 04:08 Specimen Type Catherized urine 12/01/23 13:00 Urine Color Yellow (YELLOW) 12/01/23 13:00 Urine Appearance Cloudy (CLEAR) 12/01/23 13:00 Urine pH 5.0 (5.0 - 8.0) 12/01/23 13:00 Ur Specific [place] 1.025 (1.000-1.030) 12/01/23 13:00 Urine Protein 3+ (NEGATIVE) 12/01/23 13:00 Urine Glucose (UA) Negative (NEGATIVE) 12/01/23 13:00 Urine Ketones Negative (NEGATIVE) 12/01/23 13:00 Urine Blood 5+ (NEGATIVE) 12/01/23 13:00 Urine Nitrite Negative (NEGATIVE) 12/01/23 13:00 Urine Bilirubin Negative (NEGATIVE) 12/01/23 13:00 Urine Urobilinogen Normal (NORMAL) 12/01/23 13:00 Ur Leukocyte Esterase 3+ (NEGATIVE) 12/01/23 13:00 Urine RBC 0-2 /HPF (0-3) 12/01/23 13:00 Urine WBC Tntc /HPF (0-5) A 12/01/23 13:00 Ur Squamous Epith Cells Numerous /HPF (NEGATIVE) 12/01/23 13:00 Ur Renal Epithelial Cell Rare /HPF (NEGATIVE) 12/01/23 13:00 Urine Bacteria 4+ /HPF (NEGATIVE) 12/01/23 13:00 Ur Culture Indicated? Yes/culture set up 12/01/23 13:00 Digoxin 0.80 ng/mL (0.9-2) L 12/04/23 05:05 Plan (1) Acute lower extremity ischemia: Status: Acute (2) PVD (peripheral vascular disease): Status: Acute (3) UTI (urinary tract infection): Status: Acute Qualifiers: Hematuria presence: without hematuria Urinary tract infection type: acute cystitis Qualified Code(s): N30.00 - Acute cystitis without hematuria Plan: IV rocephin Urine/Blood culture pending (4) Hypokalemia: Status: Acute Plan: replete per protocol (5) Altered mental status: Status: Acute Qualifiers: Altered mental status type: unspecified Qualified Code(s): R41.82 - A ltered mental status, unspecified (6) Chronic kidney disease: Status: Chronic Qualifiers: Chronic kidney disease stage: stage 2 (mild) Qualified Code(s): N18.2 - Chronic kidney disease, stage 2 (mild) (7) Atrial fibrillation: Status: Chronic Qualifiers: Atrial fibrillation type: chronic Qualified Code(s): I48.2 - Chronic atrial fibrillation (8) Dementia: Status: Acute Qualifiers: Dementia behavioral or psychological symptom: unspecified whether behavioral, psychotic, or mood disturbance or anxiety Dementia severity: severe Dementia type: unspecified type Qualified Code(s): F03.C0 - Unspecified dementia, severe, without behavioral disturbance, psychotic disturbance, mood d isturbance, and anxiety
[2023-12-06 04:36] VITALS: O2SAT 98
[2023-12-06 05:41] LABS: BASOPHILS # (AUTO) 0.1 X10^3/uL (0.0-0.1); BASOPHILS % (AUTO) 0.3 % (0.2-1.0); EOSINOPHILS # (AUTO) 0.3 x10^3/uL (0.0-0.2); EOSINOPHILS % (AUTO) 1.7 % (0.9-2.9); HEMATOCRIT 29.4 % (36.0-47.0); HEMOGLOBIN 9.7 g/dL (12.0-16.0); LYMPHOCYTES # (AUTO) 1.3 X10^3/uL (1.3-2.9); LYMPHOCYTES % (AUTO) 7.2 % (21.0-51.0); MEAN CORPUSCULAR HEMOGLOBIN 30.9 pg (27.0-34.0); MEAN CORPUSCULAR HGB CONC 32.9 g/dL (33.0-35.0); MEAN PLATELET VOLUME 9.5 fL (7.4-11.0); MONOCYTES # (AUTO) 1.8 x10^3/uL (0.3-0.8); MONOCYTES % (AUTO) 10.1 % (0.0-13.0); NEUTROPHILS # (AUTO) 14.3 x10^3/uL (2.2-4.8); NEUTROPHILS % (AUTO) 80.7 % (42.0-75.0); PLATELET COUNT 182 X10^3/uL (150.0-450.0); RED BLOOD COUNT 3.13 X10^6/uL (3.5-5.4); RED CELL DISTRIBUTION WIDTH 12.9 % (11.6-16.5); WHITE BLOOD COUNT 17.8 X10^3/uL (3.6-10.0)
[2023-12-06 05:56] LABS: ALANINE AMINOTRANSFERASE 83 Units/L (12-78); ALKALINE PHOSPHATASE 72 Units/L (46-116); ASPARTATE AMINO TRANSFERASE 127 Units/L (15-37); BLOOD UREA NITROGEN 20 mg/dL (7-18); CALCIUM 8.3 mg/dL (8.5-10.1); CARBON DIOXIDE 21.2 mmol/L (21-32); CHLORIDE 106 mmol/L (98-107); COR CA(FOR HYPOALB) 9.9 mg/dL (8.5-10.1); GLUCOSE 109 mg/dL (65-99); POTASSIUM 4.2 mmol/L (3.5-5.1); SODIUM 138 mmol/L (136-145); eGFR NON BLACK RACES 41 (>60)
[2023-12-06 08:19] VITALS: BP 139/80; PULSE 89; RESP 15; TEMP 97.8
[2023-12-08] MEDS ORDERED: CATAPRES-TTS-2 TD SCH (09:00)
--- NOTE | 2023-12-11 11:18 | W.DIS.FURT ---
Summary of Discharge Discharge Summary of Date Date of Exam: 12/06/23 Admission Date Date of Admission: 12/01/23 Admission Diagnosis Patient Problems (Updated 12/06/23 @ 10:10 by Khushbu Ortiz) Altered mental status (Acute) R41.82 UTI (urinary tract infection) (Acute) N39.0 Hypokalemia (Acute) E87.6 Hospital Course: Patient is a 88 year old female [facility] resident with a past medical history of hypertension, CHF, Hyperlipidemia, Dementia presented with altered mental status. Per staff, patient's mentation appeared worse than her baseline. In the ER, CT head did not show any acute abnormalities. She did have elevated WBC count, low potassium, worsening renal function. UA did not show infection. She was started on IV hydration and IV antibiotics. Her labs were monitored daily and electrolytes were repleted as needed. During this admission, patient's left lower leg and foot were noted to be cold and bluish in color. Patient had faint pulse in that foot. Patient was also hurting when examining that leg. No open wounds or ulcers were noted. CT and vascular consult were ordered for further workup but patient's daughter and family declined any further workup. Discussed with family in detail regarding acute ischemia of the left leg. Daughter stated that their mom has been a resident of [place] [facility] for over 7 years and has been declining with dementia. She is bedbound and completely dependent. They declined any further imaging or testing. Family decided to do hospice care with comfort care measures. Patient was transferred back to [facility] for hospice care. Vital Signs: Vital Signs (72 hours) 12/03/23 12:00 12/03/23 16:00 12/03/23 18:34 Temperature 97.8 F 98.8 F Pulse Rate Pulse Rate [Bilateral Radial] 73 80 Respiratory Rate 20 20 18 Blood Pressure [Left Arm] 188/74 183/74 Blood Pressure [Right Arm] O2 Sat by Pulse Oximetry 98 98 Oxygen Delivery Method Room Air Room Air 12/03/23 19:00 12/03/23 19:34 12/03/23 20:00 Temperature 97.8 F Pulse Rate Pulse Rate [Bilateral Radial] 94 H Respiratory Rate 23 20 Blood Pressure [Left Arm] 176/72 Blood Pressure [Right Arm] O2 Sat by Pulse Oximetry 97 Oxygen Delivery Method Room Air Room Air 12/04/23 00:00 12/04/23 04:00 12/04/23 08:00 Temperature 98.2 F 97.9 F 97.6 F Pulse Rate Pulse Rate [Bilateral Radial] 91 H 70 100 H Respiratory Rate 20 18 18 Blood Pressure [Left Arm] 150/93 172/90 139/90 Blood Pressure [Right Arm] O2 Sat by Pulse Oximetry 99 98 96 Oxygen Delivery Method Room Air Room Air Room Air 12/04/23 08:56 12/04/23 07:00 12/04/23 12:00 Temperature 97.7 F Pulse Rate 100 H Pulse Rate [Bilateral Radial] 67 Respiratory Rate 18 Blood Pressure [Left Arm] 176/81 Blood Pressure [Right Arm] O2 Sat by Pulse Oximetry 96 Oxygen Delivery Method Room Air Room Air 12/04/23 15:33 12/04/23 16:00 12/04/23 16:33 Temperature 97.5 F L Pulse Rate Pulse Rate [Bilateral Radial] 83 Respiratory Rate 18 20 18 Blood Pressure [Left Arm] 174/80 Blood Pressure [Right Arm] O2 Sat by Pulse Oximetry 99 Oxygen Delivery Method Room Air 12/05/23 02:08 12/04/23 20:00 12/04/23 19:00 Temperature 97.7 F Pulse Rate Pulse Rate [Bilateral Radial] 96 H Respiratory Rate 19 21 Blood Pressure [Left Arm] 179/84 Blood Pressure [Right Arm] O2 Sat by Pulse Oximetry 98 Oxygen Delivery Method Room Air Room Air 12/04/23 23:44 12/05/23 03:08 12/05/23 04:00 Temperature 98.2 F 98.6 F Pulse Rate Pulse Rate [Bilateral Radial] 62 70 Respiratory Rate 19 20 20 Blood Pressure [Left Arm] 171/76 157/66 Blood Pressure [Right Arm] O2 Sat by Pulse Oximetry 96 98 Oxygen Delivery Method Room Air Room Air 12/05/23 09:40 12/05/23 11:57 12/05/23 08:00 Temperature 97.4 F L Pulse Rate Pulse Rate [Bilateral Radial] 94 H Respiratory Rate 20 20 18 Blood Pressure [Left Arm] Blood Pressure [Right Arm] 180/84 O2 Sat by Pulse Oximetry 96 Oxygen Delivery Method Room Air 12/05/23 07:00 12/05/23 09:00 12/05/23 13:01 Temperature Pulse Rate 94 H 70 Pulse Rate [Bilateral Radial] Respiratory Rate Blood Pressure [Left Arm] Blood Pressure [Right Arm] O2 Sat by Pulse Oximetry Oxygen Delivery Method Room Air 12/05/23 12:00 12/05/23 19:06 12/05/23 16:00 Temperature 97.7 F 97.4 F L Pulse Rate Pulse Rate [Bilateral Radial] 66 90 Respiratory Rate 18 18 18 Blood Pressure [Left Arm] Blood Pressure [Right Arm] 170/72 180/81 O2 Sat by Pulse Oximetry 96 96 Oxygen Delivery Method Room Air Room Air 12/05/23 19:00 12/05/23 20:00 12/05/23 20:06 Temperature 99.1 F Pulse Rate Pulse Rate [Bilateral Radial] 92 H Respiratory Rate 20 18 Blood Pressure [Left Arm] Blood Pressure [Right Arm] 140/70 O2 Sat by Pulse Oximetry 96 Oxygen Delivery Method Room Air Room Air 12/05/23 23:59 12/06/23 04:00 12/06/23 08:00 Temperature 99.2 F 98.2 F 97.8 F Pulse Rate Pulse Rate [Bilateral Radial] 82 80 89 Respiratory Rate 20 20 15 Blood Pressure [Left Arm] Blood Pressure [Right Arm] 169/72 150/56 139/80 O2 Sat by Pulse Oximetry 96 98 98 Oxygen Delivery Method Room Air Room Air Room Air 12/06/23 08:53 12/06/23 07:00 Temperature Pulse Rate 89 Pulse Rate [Bilateral Radial] Respiratory Rate Blood Pressure [Left Arm] Blood Pressure [Right Arm] O2 Sat by Pulse Oximetry Oxygen Delivery Method Room Air Labs: Laboratory Last Values WBC 17.8 X10^3/uL (3.6-10.0) H 12/06/23 05:20 RBC 3.13 X10^6/uL (3.5-5.4) L 12/06/23 05:20 Hgb 9.7 g/dL (12.0-16.0) L 12/06/23 05:20 Hct 29.4 % (36.0-47.0) L 12/06/23 05:20 MCV 94.0 fL (80.0-100.0) 12/06/23 05:20 MCH 30.9 pg (27.0-34.0) 12/06/23 05:20 MCHC 32.9 g/dL (33.0-35.0) L 12/06/23 05:20 RDW 12.9 % (11.6-16.5) 12/06/23 05:20 Plt Count 182 X10^3/uL (150.0-450.0) 12/06/23 05:20 MPV 9.5 fL (7.4-11.0) 12/06/23 05:20 Neut % (Auto) 80.7 % (42.0-75.0) H 12/06/23 05:20 Lymph % (Auto) 7.2 % (21.0-51.0) L 12/06/23 05:20 [place] % (Auto) 10.1 % (0.0-13.0) 12/06/23 05:20 Eos % (Auto) 1.7 % (0.9-2.9) 12/06/23 05:20 Baso % (Auto) 0.3 % (0.2-1.0) 12/06/23 05:20 Neut # (Auto) 14.3 x10^3/uL (2.2-4.8) H 12/06/23 05:20 Lymph # (Auto) 1.3 X10^3/uL (1.3-2.9) 12/06/23 05:20 [place] # (Auto) 1.8 x10^3/uL (0.3-0.8) H 12/06/23 05:20 Eos # (Auto) 0.3 x10^3/uL (0.0-0.2) H 12/06/23 05:20 Baso # (Auto) 0.1 X10^3/uL (0.0-0.1) 12/06/23 05:20 Absolute Nucleated RBC 0.0 /100WBC 12/06/23 05:20 PT 13.1 SECONDS (11.8-14.3) 12/01/23 13:08 INR Target Range - 12/01/23 13:08 INR 1.01 (0.8-1.3) 12/01/23 13:08 APTT 27.7 SECONDS (22.9-36.5) 12/01/23 13:08 PTT Comment - 12/01/23 13:08 Sodium 138 mmol/L (136-145) 12/06/23 05:20 Corrected Sodium TNP 12/06/23 05:20 Potassium 4.2 mmol/L (3.5-5.1) 12/06/23 05:20 Chloride 106 mmol/L (98-107) 12/06/23 05:20 Carbon Dioxide 21.2 mmol/L (21-32) 12/06/23 05:20 BUN 20 mg/dL (7-18) H 12/06/23 05:20 Creatinine 1.30 mg/dL (0.55-1.02) H 12/06/23 05:20 Est GFR (MDRD) Af Amer 50 (>60) L 12/06/23 05:20 Est GFR (MDRD) Non-Af 41 (>60) L 12/06/23 05:20 Glucose 109 mg/dL (65-99) H 12/06/23 05:20 Lactic Acid 0.9 mmol/L (0.4-2.0) 12/01/23 16:18 Calcium 8.3 mg/dL (8.5-10.1) L 12/06/23 05:20 Corrected Calcium 9.9 mg/dL (8.5-10.1) 12/06/23 05:20 Magnesium 2.0 mg/dL (2.0-2.9) 12/03/23 05:16 Total Bilirubin 0.70 mg/dL (0.2-1.0) 12/06/23 05:20 AST 127 Units/L (15-37) H 12/06/23 05:20 ALT 83 Units/L (12-78) H 12/06/23 05:20 Alkaline Phosphatase 72 Units/L (46-116) 12/06/23 05:20 Total Protein 6.0 g/dL (6.4-8.2) L 12/06/23 05:20 Albumin 2.0 g/dL (3.4-5.0) L 12/06/23 05:20 Globulin 4.0 g/dL (2.5-4.5) 12/06/23 05:20 Albumin/Globulin Ratio 0.5 Ratio (1.1-2.1) L 12/06/23 05:20 Specimen Type Catherized urine 12/01/23 13:00 Urine Color Yellow (YELLOW) 12/01/23 13:00 Urine Appearance Cloudy (CLEAR) 12/01/23 13:00 Urine pH 5.0 (5.0 - 8.0) 12/01/23 13:00 Ur Specific [place] 1.025 (1.000-1.030) 12/01/23 13:00 Urine Protein 3+ (NEGATIVE) 12/01/23 13:00 Urine Glucose (UA) Negative (NEGATIVE) 12/01/23 13:00 Urine Ketones Negative (NEGATIVE) 12/01/23 13:00 Urine Blood 5+ (NEGATIVE) 12/01/23 13:00 Urine Nitrite Negative (NEGATIVE) 12/01/23 13:00 Urine Bilirubin Negative (NEGATIVE) 12/01/23 13:00 Urine Urobilinogen Normal (NORMAL) 12/01/23 13:00 Ur Leukocyte Esterase 3+ (NEGATIVE) 12/01/23 13:00 Urine RBC 0-2 /HPF (0-3) 12/01/23 13:00 Urine WBC Tntc /HPF (0-5) A 12/01/23 13:00 Ur Squamous Epith Cells Numerous /HPF (NEGATIVE) 12/01/23 13:00 Ur Renal Epithelial Cell Rare /HPF (NEGATIVE) 12/01/23 13:00 Urine Bacteria 4+ /HPF (NEGATIVE) 12/01/23 13:00 Ur Culture Indicated? Yes/culture set up 12/01/23 13:00 Digoxin 1.30 ng/mL (0.9-2) 12/06/23 05:20 Reason For Visit: UTI HYPOKELEMIA CHANGE IN METAL STATUS Discharge Diagnosis All Active Problems (Updated 12/06/23 @ 10:10 by Khushbu Ortiz) Hospice care (Acute) Acute lower extremity ischemia (Acute) Dementia (Acute) PVD (peripheral vascular disease) (Acute) Altered mental status (Acute) UTI (urinary tract infection) (Acute) Hypokalemia (Acute) Intractable diarrhea (Acute) Closed compression fracture of body of L1 vertebra (Chronic) Congestive heart failure (Chronic) Chronic kidney disease (Chronic) Hypertension (Chronic) Atrial fibrillation (Chronic) Pacemaker (Chronic) GERD (gastroesophageal reflux disease) (Chronic) History of diverticulosis (Chronic) Arthritis (Chronic) History of skin cancer (Chronic) Osteoarthritis (Chronic) Anxiety (Chronic) Depression (Chronic) Aortic aneurysm (Chronic) Plan of Treatment: Continue with present treatment and follow up plan. Pt is to keep follow up appointment as instructed and take medications as ordered. Discharge Medications Discharge Medications: shellfish derived Allergy (Verified 12/01/23 16:06) Sulfa (Sulfonamide Antibiotics) [SULFA] Allergy (Verified 12/01/23 16:06) New Prescriptions fentanyl 25 mcg/hr transdermal patch 1 patch transdermal Q72H #5 ea 12/06/23 [Rx] lorazepam 2 mg/mL injection solution (Ativan) 0.5 mg (0.25 mL) IV Q4HR PRN 12/06/23 [Rx] morphine 2 mg/mL injection solution 2 mg subcut Q2H #25 mL 12/06/23 [Rx] Discharge Disposition Discharge Disposition: [facility] with hospice Discharge Condition: Stable Discharge Plan Discharge Plan Hospital Course: Patient is a 88 year old female [facility] resident with a past medical history of hypertension, CHF, Hyperlipidemia, Dementia presented with altered mental status. Per staff, patient's mentation appeared worse than her baseline. In the ER, CT head did not show any acute abnormalities. She did have elevated WBC count, low potassium, worsening renal function. UA did not show infection. She was started on IV hydration and IV antibiotics. Her labs were monitored daily and electrolytes were repleted as needed. During this admission, patient's left lower leg and foot were noted to be cold and bluish in color. Patient had faint pulse in that foot. Patient was also hurting when examining that leg. No open wounds or ulcers were noted. CT and vascular consult were ordered for further workup but patient's daughter and family declined any further workup. Discussed with family in detail regarding acute ischemia of the left leg. Daughter stated that their mom has been a resident of [place] for over 7 years and has been declining with dementia. She is bedbound and completely dependent. They declined any further imaging or testing. Family decided to do hospice care with comfort care measures. Patient was transferred back to [facility] for hospice care. Patient Disposition: SNF Condition: Stable Health Concerns: Post Hospitalization: new medications and changes needed to prevent readmission or further decline. Pt educated and given instructions on all concerns. Care Plan Goals: Problem: Pain/Alteration in Comfort Goal: Improve/ Resolve Pain; Achieve Pain Tolerance Instructions: Take pain medications as prescribed. Contact your primary care provider if your pain is unrelieved or worsens. Follow up with primary care provider as directed. Plan of Treatment: Continue with present treatment and follow up plan. Pt is to keep follow up appointment as instructed and take medications as ordered. Prescription drug monitoring program results: PDMP reviewed and no concerns identified Prescriptions: New lorazepam [Ativan] 2 mg/mL solution 0.5 mg IV Q4HR PRN Rx Instructions: administer 5-20 minutes before start of surgery/procedure as a single dose fentanyl 25 mcg/hr patch 72 hour 1 patch transdermal Q72H MDD 1 patch Qty: 5 0RF morphine 2 mg/mL solution 2 mg subcut Q2H MDD 2 mg q2h Qty: 25 0RF atropine 1 % drops 1 drp buccal Q4H PRN30 Days Qty: 15 0RF Discontinued digoxin 0.125 MG tablet 0.125 mcg PO DAILY furosemide 20 MG tablet 20 mg PO DAILY Hemocyte-Plus 1 EACH capsule 1 cap PO BID cyanocobalamin (vitamin B-12) 1,000 MCG/ML solution 1 ml IM WEEKLY Rx Instructions: EVERY MONDAY L.acidoph, paracasei,B. lactis 1 EACH capsule 2 cap PO DAILY pantoprazole [pantoprazole] 40 MG tablet,delayed release (DR/EC) 40 mg PO BID Qty: 60 3RF Rx Instructions: TAKE ONE TABLET TWICE A DAY buspirone 5 mg Tablet 5 mg PO BID clonidine 0.2 mg/24 hr patch weekly 1 patch QWEEK acetaminophen [Tylenol] 325 mg Tablet 650 mg PO Q4H PRN cetirizine [Zyrtec] 10 mg Tablet 10 mg PO DAILY ondansetron HCl 4 mg tablet 4 mg PO QDAY PRN potassium chloride 20 mEq tablet,ER particles/crystals 20 meq PO BID famotidine 20 mg tablet 20 mg PO BID benzonatate [Tessalon Perles] 100 mg Capsule 100 mg PO TID cholecalciferol (vitamin D3) 25 mcg (1,000 unit) Capsule 1,000 unit PO DAILY levothyroxine 50 mcg tablet 50 mcg PO DAILY montelukast 10 mg tablet 10 mg PO HS fluticasone propionate 50 mcg/actuation spray,suspension 1 spray Intranasal BID melatonin 5 mg Capsule 5 mg PO HS megestrol 40 mg Tablet 40 mg PO BID Orders to Discharge Patient Discharge Orders: Discharge (Routine); Ordered 12/06/23 Ordered By: Khushbu Ortiz Follow ups/Referrals Follow ups/Referrals: Bart Romo [Primary Care Provider] -
== END 2023-12-06 12:00 | DRG 690 ==
LOC: ER 12:21 → MED/SURG 17:37
PROVIDERS: ADMIT Internal Medicine; ATTEND Internal Medicine
DX: I48.20 Chronic atrial fibrillation, unspecified; Z66 Do not resuscitate; R41.82 Altered mental status, unspecified; N18.2 Chronic kidney disease, stage 2 (mild); E87.6 Hypokalemia; K21.9 Gastro-esophageal reflux disease without esophagitis; E78.5 Hyperlipidemia, unspecified; N39.0 Urinary tract infection, site not specified; I12.9 Hypertensive chronic kidney disease with stage 1 through stage 4 chronic kidney disease, or unspecified chronic kidney disease; F03.C0 Unspecified dementia, severe, without behavioral disturbance, psychotic disturbance, mood disturbance, and anxiety; B96.29 Other Escherichia coli [E. coli] as the cause of diseases classified elsewhere; M79.602 Pain in left arm; I73.9 Peripheral vascular disease, unspecified; M79.605 Pain in left leg